=== PATIENT | male | born 1935 | race Caucasian/White ===

== ENCOUNTER 2018-05-02 16:16 | Outpatient (CLI) | payer MEDICARE, BC ==
[2018-05-02 17:21] LABS: #Basophils 0.1 thou/uL (0.0-0.2); #Eosinphils 0.3 thou/uL (0.0-0.7); #Lymphocytes 1.9 thou/uL (1.20-3.40); #Monocytes 0.7 thou/uL (0.11-0.59); #Neutrophils 4.4 thou/uL (1.40-6.50); %Basophils 1.2 % (0.0-1.0); %Eosinophils 3.7 % (0.0-10.0); %Lymphocytes 26.2 % (21.0-51.0); %Monocytes 9.3 % (0.0-10.0); %Neutrophils 59.7 % (42.0-75.0); Hemoglobin 15.6 g/dL (14.0-18.0); Mean Corpuscular HGB CONC 32.6 g/dL (32.0-36.0); Mean Corpuscular Hemoglobin 29.8 pg (27.0-31.0); Mean Corpuscular Volume 91.2 fL (78.0-98.0); Mean Platelet Volume 7.6 fL (7.4-10.4); Platelet Count 194 thou/uL (130-400); RBC Distribution Width 12.5 % (11.5-14.5); Red Blood Cell (RBC) Count 5.25 mill/uL (4.70-6.10); White Blood Cell (WBC) Count 7.4 thou/uL (4.8-10.8)
[2018-05-02 17:50] LABS: ALT (SGPT) 22 U/L (8-55); AST (SGOT) 23 U/L (5-34); Albumin 4.2 g/dL (3.4-4.8); Alkaline Phosphatase 80 U/L (40-150); Anion Gap 13 mmol/L (10-20); BUN (Urea Nitrogen) 15 mg/dL (8.4-25.7); Calc. Creatinine Clearance 0 mL/min (70-130); Calcium 9.8 mg/dL (7.8-10.44); Carbon Dioxide 27 mmol/L (23-31); Chloride 105 mmol/L (98-107); Estimated GFR-MDRD 75; Globulin 3.4 g/dL (2.4-3.5); Glucose 95 mg/dL (83-110); Protein, Total 7.6 g/dL (5.8-8.1); Sodium 141 mmol/L (136-145)
--- NOTE | 2018-05-02 18:33 | RAD ---
PA AND LATERAL CHEST: History: Pre op. Comparison: 02-19-18 FINDINGS: Heart size is enlarged. There are post op sternotomy changes. Lungs shows chronic change. IMPRESSION: Cardiomegaly with chronic lung change. POS: [facility]
== END 2018-05-02 16:17 | disposition home or self-care (01) ==
LOC: LABBT 16:16
PROVIDERS: ATTEND Internal Medicine Cardiovascular Disease
DX: Z01.818 Encounter for other preprocedural examination (principal); I25.10 Atherosclerotic heart disease of native coronary artery without angina pectoris; I35.0 Nonrheumatic aortic (valve) stenosis; I51.7 Cardiomegaly
CPT/HCPCS: 71046; 80053; 85025; 93005; 93010

== ENCOUNTER 2018-05-09 05:37 | Day surgery (SDC) | payer MEDICARE, BC ==
[2018-05-02 16:26] VITALS: BMI 24.6
[2018-05-09] MEDS ORDERED: Nitroglycerin 100MG/250ML BOT 0 ML ONE (06:43)
[2018-05-09] MEDS ORDERED: Heparin 10,000 UNITS/1 ML VIAL ONE (06:43)
[2018-05-09 06:52] LABS: Cardiac Risk 2.6 (Less than 4.5)
[2018-05-09] MEDS ORDERED: Fentanyl 100 MCG/2 ML VIAL ONE (07:18)
[2018-05-09] MEDS ORDERED: Midazolam HCl 2 mg/2 ml Vial ONE (07:18)
[2018-05-09] MEDS ORDERED: Protamine Sulfate 50 MG/5 ML VIAL ONE (08:21)
[2018-05-09] MEDS ORDERED: Iopamidol 370 76% 100 ML VIAL ONE (09:43)
== END 2018-05-09 15:40 | disposition home or self-care (01) ==
LOC: CCL 05:37
PROVIDERS: ATTEND Internal Medicine Cardiovascular Disease
PROC: 4A023N7 Measurement of Cardiac Sampling and Pressure, Left Heart, Percutaneous Approach (ICD-10-PCS; principal; 2018-05-09)
PROC: B2111ZZ Fluoroscopy of Multiple Coronary Arteries using Low Osmolar Contrast (ICD-10-PCS; 2018-05-09)
PROC: B2181ZZ Fluoroscopy of Left Internal Mammary Bypass Graft using Low Osmolar Contrast (ICD-10-PCS; 2018-05-09)
PROC: B2131ZZ Fluoroscopy of Multiple Coronary Artery Bypass Grafts using Low Osmolar Contrast (ICD-10-PCS; 2018-05-09)
DX: I35.0 Nonrheumatic aortic (valve) stenosis (principal); I25.10 Atherosclerotic heart disease of native coronary artery without angina pectoris; I34.0 Nonrheumatic mitral (valve) insufficiency; I25.2 Old myocardial infarction; E78.00 Pure hypercholesterolemia, unspecified; I11.0 Hypertensive heart disease with heart failure; I50.42 Chronic combined systolic (congestive) and diastolic (congestive) heart failure; Z87.891 Personal history of nicotine dependence; Z79.82 Long term (current) use of aspirin; Z79.899 Other long term (current) drug therapy; Z95.1 Presence of aortocoronary bypass graft
CPT/HCPCS: 36415; 80061; 93460; 93561; 93567; 99152; 99153; C1769; J1644; J2250; J2720; J3010; Q9967

== ENCOUNTER 2018-05-10 19:17 | Emergency (ER) | payer MEDICARE, BC ==
--- NOTE | 2018-05-10 20:58 | RAD ---
CHEST TWO VIEW 05/10/18 HISTORY: Fever. COMPARISON: Radiograph 05/02/18. FINDINGS: Heart size is mildly enlarged. No pneumothorax. No effusion. No acute osseous abnormality. Chronic scarring in the lung bases. Multiple midline sternotomy wires. IMPRESSION: Chronic scarring in the lung bases. No acute intrathoracic abnormality. POS: [facility]
== END 2018-05-10 22:40 | disposition home or self-care (01) ==
LOC: ERS 19:17
DX: R05 Cough (principal); M79.10 Myalgia, unspecified site; E78.5 Hyperlipidemia, unspecified; I10 Essential (primary) hypertension; I11.0 Hypertensive heart disease with heart failure; I50.9 Heart failure, unspecified; Z87.891 Personal history of nicotine dependence; Z79.899 Other long term (current) drug therapy; Z79.82 Long term (current) use of aspirin
CPT/HCPCS: 71046; 87804

== ENCOUNTER 2018-09-21 15:12 | Inpatient (IN) | payer MEDICARE, BC ==
[~2018-09-21 15:12] MED LIST: ISOVUE-370 76%-LOCM 1 ML ONE
[2018-09-21 15:49] LABS: Bicarbonate (HCO3v) 27.7 mmol/L (22.0-28.0); CO2 Tension (PvCO2) 46.4 mmHg (40.0-50.0); Calcium, Ionized 1.13 mmol/L (See Comments:); Chloride 101 mmol/L (98-107); Hemoglobin - Calc 13.8 g/dL (14.0-18.0); Potassium 3.3 mmol/L (3.5-5.1); Sodium 138 mmol/L (138-145); T. Carbon Dioxide 29.1 mmol/L (22.0-28.0); vO2 Saturation-calc 55.3 % (60.0-85.0)
[2018-09-21 15:56] LABS: Mean Corpuscular HGB CONC 33.3 g/dL (32.0-36.0); Mean Corpuscular Hemoglobin 30.4 pg (27.0-31.0); Mean Corpuscular Volume 91.3 fL (78.0-98.0); RBC Distribution Width 12.4 % (11.5-14.5); Red Blood Cell (RBC) Count 4.29 mill/uL (4.70-6.10); White Blood Cell (WBC) Count 15.3 thou/uL (4.8-10.8)
--- NOTE | 2018-09-21 16:05 | RAD ---
RADIOGRAPH CHEST 1 VIEW: DATE: 09/21/2018 TIME: 3:40 PM HISTORY: 82-year-old male with dyspnea COMPARISON: 05/10/2018 FINDINGS: Cardiomegaly appears slightly worse. Pulmonary venous engorgement diffusely. New finding of haziness of the bilateral lower lung zones, especially the right. No effacement of lateral costophrenic angles. No pneumothorax. Signs of previous CABG. IMPRESSION: 1) cardiomegaly and pulmonary venous congestion. Edema. 2. Mild haziness of the bilateral lower lung zones, nonspecific. Perhaps early pulmonary interstitial . 3) prior coronary artery bypass graft surgery is evidence for coronary atherosclerotic disease.
[2018-09-21 16:06] LABS: ALT (SGPT) 17 U/L (8-55); AST (SGOT) 18 U/L (5-34); Albumin 3.6 g/dL (3.4-4.8); Alkaline Phosphatase 76 U/L (40-150); Anion Gap 12 mmol/L (10-20); BUN (Urea Nitrogen) 16 mg/dL (8.4-25.7); Bilirubin, Total 1.7 mg/dL (0.2-1.2); CK (CPK) 67 U/L (30-200); Calc. Creatinine Clearance 0 mL/min (70-130); Calcium 8.6 mg/dL (7.8-10.44); Carbon Dioxide 26 mmol/L (23-31); Chloride 103 mmol/L (98-107); Estimated GFR-MDRD 79; Globulin 2.8 g/dL (2.4-3.5); Glucose 107 mg/dL (83-110); Potassium 3.4 mmol/L (3.5-5.1); Protein, Total 6.4 g/dL (5.8-8.1); Sodium 138 mmol/L (136-145)
[2018-09-21 16:14] LABS: Band 18 % (5-11); Lymphocytes 2 % (21-51); MDiff Complete? YES; Mean Platelet Volume 8.1 fL (7.4-10.4); Monocytes 9 % (0-10); Neutrophil 71 % (42-75); Platelet Count 110 thou/uL (130-400); Platelet Morphology Comment Appears Decreased
[2018-09-21 16:28] LABS: CKMB 1.2 ng/mL (0-6.6)
[2018-09-21] MEDS ORDERED: Aspirin Chewable 81 MG TAB ONE (16:40)
--- NOTE | 2018-09-21 18:47 | CT ---
Exam: CT angiogram of the chest HISTORY: Shortness of breath. Decreased O2 saturation. COMPARISON: None TECHNIQUE: CT angiogram of the chest is performed in the axial plane. Three-dimensional reformatted i mages are submitted for interpretation FINDINGS: Mediastinum: Enlarged AP window lymph node measuring 1.7 x 1.0 1.3 x 1.3 cm. Subcarinal lymphadenopat hy measuring 3.2 x 1.3 cm. HEART: Cardiomegaly. There are coronary artery calcifications. Calcification of the aortic valve. No significant pericardial fluid. Aorta: Atherosclerosis, without evidence of dissection or aneurysm. No significant luminal narrowing. Upper solid abdominal viscera: No abnormality enhancement. Trachea and central bronchi: Patent Pleural spaces: No effusion Lung parenchyma: There is bilateral lower lobe consolidation with scattered air bronchograms. Possibi lity of bilateral lower lobe pneumonia should be considered. Additional patchy groundglass opacities are noted predominantly in both lower lobes, middle lobe, and lingula. The possibility of s uperimposed congestive heart failure cannot be excluded. Pneumothorax: None Osseous structures: No lytic or blastic lesions Pulmonary arteries: Adequate contrast opacification pulmonary arterial system to the level of segment al arteries. No filling defect to suggest pulmonary embolism IMPRESSION: 1. No evidence of pulmonary artery embolism to the level of the segmental arteries 2. Multi lobar consolidation likely due to pneumonia. Aspiration or atelectasis cannot be completely excluded. 3. Mediastinal lymphadenopathy 4. Groundglass opacities may represent a component of congestive heart failure/edema.
[2018-09-21 19:37] LABS: Troponin I 0.013 ng/mL (< 0.028)
[2018-09-21] MEDS ORDERED: Senokot S 8.6-50 MG TAB PO PRN (20:52)
[2018-09-21] MEDS ORDERED: Acetaminophen 325 MG TAB PO PRN (20:52)
[2018-09-21] MEDS ORDERED: Furosemide 40 MG/4 ML VIAL SLOW IVP SCH (21:00)
[2018-09-21] MEDS ORDERED: Furosemide 40 MG/4 ML VIAL ONE (21:18)
[2018-09-21] MEDS ORDERED: Potassium Chloride 20 MEQ TAB PO SCH (21:30)
[2018-09-21 22:09] LABS: Troponin I 0.023 ng/mL (< 0.028)
[2018-09-21 23:33] VITALS: BMI 26.2
[2018-09-21] MEDS: cefTRIAXone\\ROCEPHIN 1 GM in Sodium Chloride 0.9% 100 ML IVPB SCH (23:53)
[2018-09-21] MEDS: Azithromycin 500 MG in Sodium Chloride 0.9% 250 ML 250 ML IVPB SCH (23:54)
[2018-09-21] MEDS ORDERED: Carvedilol 25 MG TAB PO SCH (23:59)
[2018-09-21] MEDS ORDERED: Atorvastatin Calcium 10 MG TAB PO SCH (23:59)
[2018-09-21] MEDS ORDERED: Lorazepam 1 MG TAB PO SCH (23:59)
--- NOTE | 2018-09-22 05:21 | HP ---
PRIMARY CARE PHYSICIAN: Dr. Cadena. CHIEF COMPLAINT: Shortness of breath. HISTORY OF PRESENT ILLNESS: Mr. Chinchilla is a very pleasant 82-year-old man who reported to the emergency room today for evaluation of shortness of breath. He describes symptoms as tightness, dyspnea on exertion, orthopneic. He reports that he has had a worsening cough over the last week, has had some chills this week as well. He reports that he typically does not use oxygen at home, but here he has had to be on 3 to 4 units to sustain a pulse ox of over 92%. PAST MEDICAL HISTORY: Pertinent for hyperlipidemia, hypertension, congestive heart failure, had a CABG x4. He did have a heart catheterization in April of this year, three-vessel coronary artery disease, 5/5 bypass grafts patent, mildly impaired ventricular function, mild aortic stenosis, moderate mitral regurgitation. The patient reports that Dr. Almaguer has increased his Coreg to 25 mg b.i.d. and also his losartan to 100 mg, and since that time, the patient reports that he gets winded easily. Reports that with the activities of daily living, he gets more short of breath. The patient's evaluation in the emergency room showed white blood cell count of 15.3, hemoglobin was 13, hematocrit is 39.0. Blood gas; pO2 of 29.8. pCO2 is 29.1. Hemoglobin calculated is 13.8. Chemistry; sodium is 138, potassium 3.4. BNP was shown to be 915. The patient underwent CTA chest, which showed no evidence of pulmonary embolism, but there is multilobar consolidation, likely due to pneumonia. There is mediastinal lymphadenopathy, ground-glass opacities which may represent a component of congestive heart failure and edema. The patient was subsequently admitted from the emergency room to the tele unit for further management. PAST MEDICAL HISTORY: As above, hypertension, CHF, SC, CABG x5. SURGICAL HISTORY: Heart catheterization in April 2018, had a CABG x5. Does not have any stents. PSYCHIATRIC HISTORY: None. SOCIAL HISTORY: The patient denies any alcohol or drug use. He is a former tobacco smoker, quit more than 10 years ago. He lives at home with his family. KNOWN ALLERGIES: None. CURRENT MEDICATIONS: 1. Vitamin C 1000 mg p.o. daily. 2. Aspirin 325 mg p.o. daily. 3. Lipitor 10 mg p.o. at bedtime. 4. Coreg 25 mg p.o. b.i.d. 5. Vitamin B12 mcg p.o. daily. 6. Ativan 1 mg p.o. at bedtime. 7. Losartan 100 mg p.o. daily. 8. Multivitamin one tablet p.o. daily. 9. [place]-3 one tablet p.o. daily. 10. Lasix 40 mg p.o. daily. 11. Prilosec 40 mg p.o. daily. REVIEW OF SYSTEMS: The patient reports shortness of breath. Reports orthopnea. Reports dyspnea on exertion. He denies chest pain or palpitations. Denies any GI issues. Denies any dysuria. Denies any fever. Does report chills. Does report cough. All other systems reviewed and are negative unless mentioned in the HPI. PHYSICAL EXAMINATION: VITAL SIGNS: Blood pressure 150/71, pulse is 72, respirations 26, temp 100.1, pO2 sats are 92% on 4 L. During my exam, the patient was brought down to 2 L and was saturating between 92 and 95. During the exam, he would drop occasionally down to 89, but it would usually pop back up. He was in no apparent respiratory distress. Talking in full sentences. CONSTITUTIONAL: The patient appears nontoxic. He is alert and oriented to person, place, and time. HEENT: Head is atraumatic and normocephalic. Eyes; eyelids are normal to inspection. Pupils are equally round and reactive to light. ENT; mucous membranes are moist. Mouth exam is normal. NECK: Normal range of motion. Trachea is midline. RESPIRATORY/CHEST: He has coarse breath sounds diminished at the bases. CARDIOVASCULAR: Regular heart rate and rhythm. Does have a heart murmur. ABDOMEN: Nontender. Bowel sounds are heard. BACK: Normal range of motion. No CVA tenderness. EXTREMITIES: Upper extremities; normal range of motion. Normal inspection. Sensation is intact. Radial pulses are equal bilaterally. Lower extremities; normal range of motion. Sensation is intact. Pedal pulses are equal bilaterally. Trace edema is noted bilaterally. SKIN: Warm, dry, and normal in color. PSYCH: Normal affect. LABORATORY DATA: EKG in the emergency room shows atrial fibrillation with controlled ventricular response, beats per minute 63, new T-wave inversions in V4 and V6. ASSESSMENT AND PLAN: 1. Hypoxia, dyspnea, new oxygen demand, bilateral pneumonia, congestive heart failure exacerbation. We started Lasix, gave 40 while the patient was still down in the emergency room. We will order 40 mg IV b.i.d. starting tomorrow. Antibiotics were given. We have started Rocephin and azithromycin. We will keep oxygen on continuously as needed. 2. Hypokalemia, 3.4. We will order some potassium replacement and check again in the morning. 3. Hypertension. We will restart home medications. We will trend. 4. Deep venous thrombosis and gastrointestinal prophylaxis have been started. 5. Case discussed with Dr. Mohr who agrees with plan. 6. Hospital course is dependent on clinical findings. Job ID: [id number]
[2018-09-22] MEDS: Furosemide 40 MG/4 ML VIAL SLOW IVP SCH ×2 (05:37→14:14)
[2018-09-22 06:16] LABS: ALT (SGPT) 16 U/L (8-55); AST (SGOT) 20 U/L (5-34); Albumin 3.5 g/dL (3.4-4.8); Alkaline Phosphatase 75 U/L (40-150); Anion Gap 13 mmol/L (10-20); BUN (Urea Nitrogen) 17 mg/dL (8.4-25.7); Bilirubin, Total 1.7 mg/dL (0.2-1.2); Calc. Creatinine Clearance 70 mL/min (70-130); Calcium 9.1 mg/dL (7.8-10.44); Carbon Dioxide 26 mmol/L (23-31); Chloride 104 mmol/L (98-107); Estimated GFR-MDRD 89; Globulin 3.4 g/dL (2.4-3.5); Glucose 119 mg/dL (83-110); Potassium 3.5 mmol/L (3.5-5.1); Protein, Total 6.9 g/dL (5.8-8.1); Sodium 139 mmol/L (136-145)
[2018-09-22] MEDS ORDERED: Carvedilol 25 MG TAB PO SCH (08:00)
[2018-09-22 08:13] LABS: Band 29 % (5-11); Hemoglobin 12.6 g/dL (14.0-18.0); Lymphocytes 6 % (21-51); MDiff Complete? YES; Mean Corpuscular HGB CONC 32.6 g/dL (32.0-36.0); Mean Corpuscular Hemoglobin 29.7 pg (27.0-31.0); Mean Platelet Volume 8.3 fL (7.4-10.4); Monocytes 5 % (0-10); Neutrophil 59 % (42-75); Platelet Count 118 thou/uL (130-400); RBC Distribution Width 12.5 % (11.5-14.5); Red Blood Cell (RBC) Count 4.24 mill/uL (4.70-6.10); White Blood Cell (WBC) Count 15.2 thou/uL (4.8-10.8)
[2018-09-22] MEDS: Famotidine 20 MG TAB PO SCH ×2 (08:43→20:21)
[2018-09-22] MEDS: Enoxaparin Sodium 40 MG/0.4 ML SYRINGE SC SCH (08:43)
[2018-09-22] MEDS: Aspirin 325 MG TAB PO SCH (08:43)
[2018-09-22] MEDS: Losartan 25 MG TAB PO SCH (09:08)
[2018-09-22] MEDS: Carvedilol 25 MG TAB PO SCH ×3 (09:17→17:31)
--- NOTE | 2018-09-22 13:48 | PDOC.PN ---
- Subjective Encounter Start Date: 09/22/18 Encounter Start Time: 10:30 Subjective: pt up in chair no complains - Objective Vital Signs & Weight: Vital Signs (12 hours) Temp Pulse Resp BP BP Pulse Ox 09/22/18 11:59 98.7 F 58 L 18 122/57 L 94 L 09/22/18 08:00 94 L 09/22/18 07:25 98.5 F 60 20 103/55 L 94 L 09/22/18 03:00 99.2 F 65 24 H 139/63 96 Weight Weight 157 lb 5 oz Result Diagrams: 09/22/18 05:08 09/22/18 05:08 Phys Exam - Physical Examination Neck: no nodes, no JVD, supple, full ROM Respiratory: no wheezing, no rales, no rhonchi, wheezing present, clear to auscultation bilateral Cardiovascular: RRR, no significant murmur, no rub, gallop, irregular Dx/Plan (1) Pneumonia Code(s): J18.9 - PNEUMONIA, UNSPECIFIED ORGANISM Status: Acute (2) Heart failure Code(s): I50.9 - HEART FAILURE, UNSPECIFIED Status: Acute (3) Coronary artery disease Code(s): I25.10 - ATHSCL HEART DISEASE OF [place] CORONARY ARTERY W/O ANG PCTRS Status: Chronic (4) Dyslipidemia Code(s): E78.5 - HYPERLIPIDEMIA, UNSPECIFIED Status: Chronic (5) Hypertension Code(s): I10 - ESSENTIAL (PRIMARY) HYPERTENSION Status: Chronic - Plan will continue current abx, will try to titrate his oxygen down * . Review of Systems - Review of Systems Respiratory: negative: Cough, Dry, Shortness of Breath, Hemoptysis, SOB with Excertion, Pleuritic Pain, Sputum, Wheezing Cardiovascular: negative: chest pain, palpitations, orthopnea, paroxysmal nocturnal dyspnea, edema, light headedness, other Gastrointestinal: negative: Nausea, Vomiting, Abdominal Pain, Diarrhea, Constipation, Melena, Hematochezia, Other - Medications/Allergies Allergies/Adverse Reactions: Allergies Allergy/AdvReac Type Severity Reaction Status Date / Time No Known Allergies Allergy Verified 05/02/18 16:25 Medications: Current Medications Acetaminophen (Tylenol) 650 mg PO Q4H PRN PRN Reason: Headache/Fever/Mild Pain (1-3) Aspirin (Aspirin) 325 mg PO QA-[facility] Last Admin: 09/22/18 08:43 Dose: 325 mg Atorvastatin Calcium (Lipitor) 10 mg PO HS [facility] Carvedilol (Coreg) 12.5 mg PO BID-[facility] Enoxaparin Sodium (Lovenox) 40 mg SC 0900 [facility] Last Admin: 09/22/18 08:43 Dose: 40 mg Famotidine (Pepcid) 20 mg PO BID [facility] Last Admin: 09/22/18 08:43 Dose: 20 mg Furosemide (Lasix) 40 mg SLOW IVP 0600,1400 [facility] Last Admin: 09/22/18 05:37 Dose: 40 mg Azithromycin 500 mg/ Sodium (Chloride) 250 mls @ 250 mls/hr IVPB Q24HR [facility] Last Admin: 09/21/18 23:54 Dose: Not Given Ceftriaxone Sodium 1 gm/ (Sodium Chloride) 100 mls @ 200 mls/hr IVPB Q24HR [facility] Last Admin: 09/21/18 23:53 Dose: Not Given Lorazepam (Ativan) 1 mg PO HS [facility] Losartan Potassium (Cozaar) 100 mg PO DAILY [facility] Last Admin: 09/22/18 09:08 Dose: Not Given Pantoprazole Sodium (Protonix) 40 mg PO DAILY [facility] Last Admin: 09/22/18 08:43 Dose: 40 mg Senna/Docusate Sodium (Senokot S) 2 tab PO BID PRN PRN Reason: Constipation Sodium Chloride (Flush - Normal Saline) 10 ml IVF PRN PRN PRN Reason: Saline Flush
[2018-09-22] MEDS: cefTRIAXone\\ROCEPHIN 1 GM in Sodium Chloride 0.9% 100 ML IVPB SCH (20:21)
[2018-09-22] MEDS: Atorvastatin Calcium 10 MG TAB PO SCH (20:21)
[2018-09-22] MEDS: Lorazepam 1 MG TAB PO SCH (20:22)
[2018-09-22] MEDS: Azithromycin 500 MG in Sodium Chloride 0.9% 250 ML 250 ML IVPB SCH (22:10)
[2018-09-23 04:52] LABS: #Eosinphils 0.1 thou/uL (0.0-0.7); #Monocytes 0.8 thou/uL (0.11-0.59); #Neutrophils 9.8 thou/uL (1.40-6.50); %Basophils 0.3 % (0.0-1.0); %Eosinophils 1.1 % (0.0-10.0); %Lymphocytes 8.8 % (21.0-51.0); %Neutrophils 82.8 % (42.0-75.0); Hemoglobin 12.8 g/dL (14.0-18.0); Mean Corpuscular HGB CONC 32.7 g/dL (32.0-36.0); Mean Corpuscular Volume 91.9 fL (78.0-98.0); Mean Platelet Volume 8.6 fL (7.4-10.4); Platelet Count 130 thou/uL (130-400); RBC Distribution Width 12.6 % (11.5-14.5); Red Blood Cell (RBC) Count 4.28 mill/uL (4.70-6.10); White Blood Cell (WBC) Count 11.9 thou/uL (4.8-10.8)
[2018-09-23 05:17] LABS: ALT (SGPT) 17 U/L (8-55); AST (SGOT) 19 U/L (5-34); Albumin 3.5 g/dL (3.4-4.8); Alkaline Phosphatase 76 U/L (40-150); Anion Gap 12 mmol/L (10-20); BUN (Urea Nitrogen) 23 mg/dL (8.4-25.7); Bilirubin, Total 1.2 mg/dL (0.2-1.2); Calc. Creatinine Clearance 67 mL/min (70-130); Calcium 9.4 mg/dL (7.8-10.44); Carbon Dioxide 28 mmol/L (23-31); Chloride 102 mmol/L (98-107); Estimated GFR-MDRD 84; Globulin 3.5 g/dL (2.4-3.5); Glucose 96 mg/dL (83-110); Potassium 3.4 mmol/L (3.5-5.1); Sodium 139 mmol/L (136-145)
[2018-09-23] MEDS: Furosemide 40 MG/4 ML VIAL SLOW IVP SCH (05:34)
[2018-09-23] MEDS: Carvedilol 25 MG TAB PO SCH ×2 (08:37→17:06)
[2018-09-23] MEDS: Losartan 25 MG TAB PO SCH (08:37)
[2018-09-23] MEDS: Famotidine 20 MG TAB PO SCH ×2 (08:38→19:48)
[2018-09-23] MEDS: Aspirin 325 MG TAB PO SCH (08:38)
[2018-09-23] MEDS: Enoxaparin Sodium 40 MG/0.4 ML SYRINGE SC SCH (08:38)
[2018-09-23] MEDS ORDERED: Potassium Chloride 20 MEQ in Premix Bag 1 BAG IVPB SCH ×2 (10:30→10:45)
[2018-09-23] MEDS ORDERED: Potassium Chloride 20 MEQ TAB PO SCH (10:30)
--- NOTE | 2018-09-23 12:33 | PQF ---
CLINICAL DOCUMENTATION IMPROVEMENT CLARIFICATION FORM: ICD-10 Updated PLEASE DO AN ADDENDUM TO THE PROGRESS NOTE WITH ANY DOCUMENTATION UPDATES OR ADDITIONS AND CARRY THROUGH TO DC SUMMARY. THANK YOU. DATE: 09/23/18 ATTN: DR. WHITNEY Please exercise your independent, professional judgment in responding to the clarification form. Clinical indicators are provided on the bottom of this form for your review Please check appropriate box(s): HEART FAILURE: TYPE: [ ] Systolic / HFrEF [ x] Diastolic / HFpEF [ ] Combined Systolic / Diastolic [ ] Other diagnosis [ ] Unable to determine In addition, please specify: Present on Admission (POA): [ x ] Yes [ ] No [ ] Unable to determine For continuity of documentation, please document condition throughout progress notes and discharge summary. Thank You. CLINICAL INDICATORS - SIGNS / SYMPTOMS / LABS H&P: "CONGESTIVE HEART FAILURE EXACERBATION" ECHO REPORT: "EJECTION FRACTION IS VISUALLY ESTIMATED AT 40-45%" BNP: 915.1 RISKS: H/O HYPERTENSION H/O CABG TREATMENT: ECHOCARDIOGRAM CARDIAC MONITORING IV LASIX (ER-09/23) PO LASIX (START 09/24) COREG (09/22-PRESENT) (This form is maintained as a part of the permanent medical record) 2014 [employer]. All Rights Reserved JONATHAN [email or web address] Office: [phone] MAURICE
--- NOTE | 2018-09-23 13:47 | PDOC.PN ---
- Subjective Encounter Start Date: 09/23/18 Encounter Start Time: 10:15 Subjective: pt up in chair no complains - Objective Vital Signs & Weight: Vital Signs (12 hours) Temp Pulse Resp BP Pulse Ox 09/23/18 11:30 89 L 09/23/18 10:40 97.1 F L 55 L 18 140/65 88 L 09/23/18 08:30 98.0 F 64 18 149/67 H 94 L 09/23/18 08:00 94 L 09/23/18 05:58 98 09/23/18 03:57 97.9 F 62 22 H 148/74 H 94 L Weight Weight 151 lb 6.4 oz I&O: 09/22/18 09/23/18 09/24/18 06:59 06:59 06:59 Intake Total 1130 Output Total 1775 Balance -645 Result Diagrams: 09/23/18 04:05 09/23/18 04:05 Phys Exam - Physical Examination Neck: no nodes, no JVD, supple, full ROM Respiratory: no wheezing, no rales, no rhonchi, wheezing present, clear to auscultation bilateral Cardiovascular: RRR, no significant murmur, no rub, gallop, irregular Gastrointestinal: soft, non-tender, no distention, positive bowel sounds Musculoskeletal: no edema, pulses present, edema present Dx/Plan (1) Pneumonia Code(s): J18.9 - PNEUMONIA, UNSPECIFIED ORGANISM Status: Acute (2) Heart failure Code(s): I50.9 - HEART FAILURE, UNSPECIFIED Status: Acute (3) Coronary artery disease Code(s): I25.10 - ATHSCL HEART DISEASE OF [place] CORONARY ARTERY W/O ANG PCTRS Status: Chronic (4) Dyslipidemia Code(s): E78.5 - HYPERLIPIDEMIA, UNSPECIFIED Status: Chronic (5) Hypertension Code(s): I10 - ESSENTIAL (PRIMARY) HYPERTENSION Status: Chronic - Plan will continue current abx -: echo indicated ef of 40-45 better than before -: will change lasix to oral -: will replace potassium * . Review of Systems - Review of Systems Respiratory: Shortness of Breath. negative: Cough, Dry, Hemoptysis, SOB with Excertion, Pleuritic Pain, Sputum, Wheezing Cardiovascular: negative: chest pain, palpitations, orthopnea, paroxysmal nocturnal dyspnea, edema, light headedness, other Gastrointestinal: negative: Nausea, Vomiting, Abdominal Pain, Diarrhea, Constipation, Melena, Hematochezia, Other - Medications/Allergies Allergies/Adverse Reactions: Allergies Allergy/AdvReac Type Severity Reaction Status Date / Time No Known Allergies Allergy Verified 05/02/18 16:25 Medications: Current Medications Acetaminophen (Tylenol) 650 mg PO Q4H PRN PRN Reason: Headache/Fever/Mild Pain (1-3) Aspirin (Aspirin) 325 mg PO QAM-[facility] Last Admin: 09/23/18 08:38 Dose: 325 mg Atorvastatin Calcium (Lipitor) 10 mg PO [facility] Last Admin: 09/22/18 20:21 Dose: 10 mg Carvedilol (Coreg) 12.5 mg PO BID-[facility] Last Admin: 09/23/18 08:37 Dose: 12.5 mg Enoxaparin Sodium (Lovenox) 40 mg SC 0900 [facility] Last Admin: 09/23/18 08:38 Dose: 40 mg Famotidine (Pepcid) 20 mg PO BID [facility] Last Admin: 09/23/18 08:38 Dose: 20 mg Fluticasone Propionate (Flonase Nasal [place]) 1 gm NASAL DAILY [facility] Furosemide (Lasix) 40 mg PO DAILY-[facility] Azithromycin 500 mg/ Sodium (Chloride) 250 mls @ 250 mls/hr IVPB Q24HR [facility] Last Admin: 09/22/18 22:10 Dose: 250 mls Ceftriaxone Sodium 1 gm/ (Sodium Chloride) 100 mls @ 200 mls/hr IVPB Q24HR [facility] Last Admin: 09/22/18 20:21 Dose: 100 mls Lorazepam (Ativan) 1 mg PO [facility] Last Admin: 09/22/18 20:22 Dose: 1 mg Losartan Potassium (Cozaar) 100 mg PO DAILY [facility] Last Admin: 09/23/18 08:37 Dose: 100 mg Pantoprazole Sodium (Protonix) 40 mg PO DAILY [facility] Last Admin: 09/23/18 08:38 Dose: 40 mg Saccharomyces Boulardii (Florastor) 250 mg PO DAILY [facility] Senna/Docusate Sodium (Senokot S) 2 tab PO BID PRN PRN Reason: Constipation Sodium Chloride (Flush - Normal Saline) 10 ml IVF PRN PRN PRN Reason: Saline Flush
[2018-09-23] MEDS: cefTRIAXone\\ROCEPHIN 1 GM in Sodium Chloride 0.9% 100 ML IVPB SCH (19:48)
[2018-09-23] MEDS: Atorvastatin Calcium 10 MG TAB PO SCH (19:49)
[2018-09-23] MEDS: Lorazepam 1 MG TAB PO SCH (21:30)
[2018-09-23] MEDS: Azithromycin 500 MG in Sodium Chloride 0.9% 250 ML 250 ML IVPB SCH (21:30)
[2018-09-24] MEDS: Aspirin 325 MG TAB PO SCH (08:57)
[2018-09-24] MEDS: Losartan 25 MG TAB PO SCH (08:57)
[2018-09-24] MEDS: Furosemide 40 MG TAB PO SCH (08:58)
[2018-09-24] MEDS: Saccharomyces boulardii 250 MG CAP PO SCH (08:58)
[2018-09-24] MEDS: Famotidine 20 MG TAB PO SCH ×2 (08:59→21:04)
[2018-09-24] MEDS: Carvedilol 6.25 MG TAB PO SCH ×2 (08:59→17:41)
[2018-09-24] MEDS: Enoxaparin Sodium 40 MG/0.4 ML SYRINGE SC SCH (09:00)
[2018-09-24] MEDS: Fluticasone Propionate Nasal Spray 16 gm Bottle NASAL SCH (11:31)
[2018-09-24] MEDS ORDERED: Furosemide 40 MG/4 ML VIAL SLOW IVP SCH (14:00)
--- NOTE | 2018-09-24 16:16 | PDOC.PN ---
- Subjective Encounter Start Date: 09/24/18 Encounter Start Time: 09:00 Subjective: pt up in bed no complains - Objective Vital Signs & Weight: Vital Signs (12 hours) Temp Pulse Pulse Pulse Resp BP BP 09/24/18 14:33 63 60 175/78 H 155/70 H 09/24/18 11:03 98.3 F 70 24 H 09/24/18 07:45 98.2 F 62 19 BP Pulse Ox Pulse Ox Pulse Ox 09/24/18 14:33 94 L 95 09/24/18 11:03 155/70 H 95 09/24/18 07:45 174/78 H 96 Weight Weight 153 lb I&O: 09/23/18 09/24/18 09/25/18 06:59 06:59 06:59 Intake Total 1130 1000 Output Total 1770 2997 Balance -287 -729 Result Diagrams: 09/23/18 04:05 09/23/18 04:05 Phys Exam - Physical Examination Neck: no nodes, no JVD, supple, full ROM Respiratory: no wheezing, no rales, no rhonchi, clear to auscultation bilateral Cardiovascular: RRR, no significant murmur, no rub, gallop, irregular Gastrointestinal: soft, non-tender, no distention, positive bowel sounds Dx/Plan (1) Pneumonia Code(s): J18.9 - PNEUMONIA, UNSPECIFIED ORGANISM Status: Acute (2) Heart failure Code(s): I50.9 - HEART FAILURE, UNSPECIFIED Status: Acute (3) Coronary artery disease Code(s): I25.10 - ATHSCL HEART DISEASE OF [place] CORONARY ARTERY W/O ANG PCTRS Status: Chronic (4) Dyslipidemia Code(s): E78.5 - HYPERLIPIDEMIA, UNSPECIFIED Status: Chronic (5) Hypertension Code(s): I10 - ESSENTIAL (PRIMARY) HYPERTENSION Status: Chronic - Plan will continue abx for now -: echo was unchanged -: will give one dose of lasix for now -: possible discharge in am * . Review of Systems - Review of Systems Respiratory: negative: Cough, Dry, Shortness of Breath, Hemoptysis, SOB with Excertion, Pleuritic Pain, Sputum, Wheezing Cardiovascular: negative: chest pain, palpitations, orthopnea, paroxysmal nocturnal dyspnea, edema, light headedness, other - Medications/Allergies Allergies/Adverse Reactions: Allergies Allergy/AdvReac Type Severity Reaction Status Date / Time No Known Allergies Allergy Verified 05/02/18 16:25 Medications: Current Medications Acetaminophen (Tylenol) 650 mg PO Q4H PRN PRN Reason: Headache/Fever/Mild Pain (1-3) Aspirin (Aspirin) 325 mg PO QAM-[facility] Last Admin: 09/24/18 08:57 Dose: 325 mg Atorvastatin Calcium (Lipitor) 10 mg PO [facility] Last Admin: 09/23/18 19:49 Dose: 10 mg Carvedilol (Coreg) 12.5 mg PO BID-[facility] Last Admin: 09/24/18 08:59 Dose: 12.5 mg Enoxaparin Sodium (Lovenox) 40 mg SC 09 [facility] Last Admin: 09/24/18 09:00 Dose: 40 mg Famotidine (Pepcid) 20 mg PO BID [facility] Last Admin: 09/24/18 08:59 Dose: 20 mg Fluticasone Propionate (Flonase Nasal [place]) 1 gm NASAL DAILY [facility] Last Admin: 09/24/18 11:31 Dose: 1 spr Furosemide (Lasix) 40 mg PO DAILY-[facility] Last Admin: 09/24/18 08:58 Dose: 40 mg Azithromycin 500 mg/ Sodium (Chloride) 250 mls @ 250 mls/hr IVPB Q24HR [facility] Last Admin: 09/23/18 21:30 Dose: 250 mls Ceftriaxone Sodium 1 gm/ (Sodium Chloride) 100 mls @ 200 mls/hr IVPB Q24HR [facility] Last Admin: 09/23/18 19:48 Dose: 100 mls Lorazepam (Ativan) 1 mg PO [facility] Last Admin: 09/23/18 21:30 Dose: 1 mg Losartan Potassium (Cozaar) 100 mg PO DAILY [facility] Last Admin: 09/24/18 08:57 Dose: 100 mg Pantoprazole Sodium (Protonix) 40 mg PO DAILY [facility] Last Admin: 09/24/18 08:59 Dose: 40 mg Saccharomyces Boulardii (Florastor) 250 mg PO DAILY [facility] Last Admin: 09/24/18 08:58 Dose: 250 mg Senna/Docusate Sodium (Senokot S) 2 tab PO BID PRN PRN Reason: Constipation Sodium Chloride (Flush - Normal Saline) 10 ml IVF PRN PRN PRN Reason: Saline Flush
[2018-09-24] MEDS: Atorvastatin Calcium 10 MG TAB PO SCH (21:03)
[2018-09-24] MEDS: Lorazepam 1 MG TAB PO SCH (21:04)
[2018-09-24] MEDS: cefTRIAXone\\ROCEPHIN 1 GM in Sodium Chloride 0.9% 100 ML IVPB SCH (21:10)
[2018-09-24] MEDS: Azithromycin 500 MG in Sodium Chloride 0.9% 250 ML 250 ML IVPB SCH (22:11)
[2018-09-25] MEDS ORDERED: Furosemide 40 MG/4 ML VIAL SLOW IVP SCH (08:15)
[2018-09-25] MEDS: Enoxaparin Sodium 40 MG/0.4 ML SYRINGE SC SCH (09:03)
[2018-09-25] MEDS: Saccharomyces boulardii 250 MG CAP PO SCH (09:03)
[2018-09-25] MEDS: Losartan 25 MG TAB PO SCH (09:03)
[2018-09-25] MEDS: Aspirin 325 MG TAB PO SCH (09:04)
[2018-09-25] MEDS: Famotidine 20 MG TAB PO SCH ×2 (09:04→20:37)
[2018-09-25] MEDS: Carvedilol 6.25 MG TAB PO SCH ×2 (09:04→16:15)
[2018-09-25] MEDS: Fluticasone Propionate Nasal Spray 16 gm Bottle NASAL SCH (09:05)
[2018-09-25 09:39] LABS: Anion Gap 11 mmol/L (10-20); BUN (Urea Nitrogen) 19 mg/dL (8.4-25.7); Calc. Creatinine Clearance 76 mL/min (70-130); Calcium 9.3 mg/dL (7.8-10.44); Carbon Dioxide 31 mmol/L (23-31); Chloride 102 mmol/L (98-107); Estimated GFR-MDRD Greater than 90; Glucose 107 mg/dL (83-110); Potassium 3.4 mmol/L (3.5-5.1); Sodium 141 mmol/L (136-145)
[2018-09-25] MEDS: Furosemide 40 MG TAB PO SCH (09:40)
[2018-09-25] MEDS ORDERED: predniSONE 20 MG TAB PO SCH (09:45)
[2018-09-25] MEDS: cefTRIAXone\\ROCEPHIN 1 GM in Sodium Chloride 0.9% 100 ML IVPB SCH (20:36)
[2018-09-25] MEDS: Atorvastatin Calcium 10 MG TAB PO SCH (20:37)
[2018-09-25] MEDS: Lorazepam 1 MG TAB PO SCH (20:37)
[2018-09-25] MEDS: Azithromycin 500 MG in Sodium Chloride 0.9% 250 ML 250 ML IVPB SCH (21:11)
[2018-09-26 08:20] VITALS: TEMP 97.8
[2018-09-26] MEDS ORDERED: Furosemide 40 MG TAB PO SCH (10:00)
[2018-09-26] MEDS ORDERED: Potassium Chloride 20 MEQ TAB PO SCH (10:00)
[2018-09-26] MEDS: Aspirin 325 MG TAB PO SCH (10:12)
[2018-09-26] MEDS: Saccharomyces boulardii 250 MG CAP PO SCH (10:13)
[2018-09-26] MEDS: Losartan 25 MG TAB PO SCH (10:13)
[2018-09-26] MEDS: Famotidine 20 MG TAB PO SCH (10:14)
[2018-09-26] MEDS: Enoxaparin Sodium 40 MG/0.4 ML SYRINGE SC SCH (10:14)
[2018-09-26] MEDS: Carvedilol 6.25 MG TAB PO SCH (10:14)
[2018-09-26] MEDS: Fluticasone Propionate Nasal Spray 16 gm Bottle NASAL SCH (10:15)
[2018-09-26 10:16] VITALS: BP 160/74
--- NOTE | 2018-09-26 23:38 | DIS ---
DATE OF ADMISSION: 09/21/2018 DATE OF DISCHARGE: 09/26/2018 DISCHARGE DIAGNOSES: As of the followin. Acute hypoxic respiratory failure. 2. Pneumonia. 3. Diastolic heart failure. 4. Coronary artery disease. 5. Hyperlipidemia. 6. Hypertension. HOSPITAL COURSE: The patient is an 82-year-old male, who initially presented to the hospital on the with complaints of shortness of breath. At this time, the patient did have a CTA which indicated bilateral lower lobe pneumonia. He was also found to be hypoxic and dyspneic. He did have an elevated BNP in which time he was given some IV Lasix. He continued to improve during the hospital stay. He required oxygen. We did try to wean him off oxygen. However, this was not possible. I did repeat the echocardiogram on this patient and that echo indicated an EF of 40% to 45%, which was improved from his previous one, which I believe was couple years ago. Also, he does have [id number] tricuspid regurgitation. He initially did have a little bit of when he came in was a flutter in atrial fibrillation. However, after that, he was in normal sinus with some PACs and PVCs. He does have an appointment with a senior publications specialist tomorrow and also with his primary care on Sunday. I will discharge the patient home with, 1. Levaquin 750 one p.o. daily. 2. Carvedilol, I decreased the dose from 25 to 12.5 b.i.d. 3. I will add Florastor 250 daily. 4. Omeprazole 40 mg daily. 5. Atorvastatin 10 mg at bedtime. 6. Also, he will continue his losartan 100 mg daily. 7. Potassium 20 mEq daily. 8. Vitamin C and vitamin B12. 9. Aspirin 325 mg daily. PHYSICAL EXAMINATION: VITAL SIGNS: Temperature of 97.8, 65, 20, 92, 165/79. GENERAL: He is awake, alert, and oriented x3. Does not appear in distress. CV: S1 and S2 present. No murmurs, rubs, or gallops. ABDOMEN: Soft, nontender. Bowel sounds are present x2. EXTREMITIES: No edema. Pedal pulses are present x2. Again, he will be discharged home. He will follow up with the primary and also with Cardiology. The patient did not sustain atrial fibrillation or atrial flutter. I believe this is secondary to his pneumonia. Let the senior publications specialist decide if he needs to be anticoagulated. Job ID: [id number]
[2018-09-27] MEDS ORDERED: Furosemide 40 MG TAB PO SCH (07:30)
--- NOTE | 2018-09-28 11:05 | EKG ---
Test Reason : Blood Pressure : / mmHG Vent. Rate : 063 BPM Atrial Rate : 468 BPM P-R Int : 000 ms QRS Dur : 126 ms QT Int : 450 ms P-R-T Axes : 000 -09 155 degrees QTc Int : 460 ms Atrial fibrillation Left ventricular hypertrophy with QRS widening Inferior infarct , age undetermined Abnormal ECG New T wave inversions I, aVL T wave inversions V4-V6 Changes from 05/02/2018 Confirmed by ANDREW ROMERO ([id number]), book editor SLOANE BLACKWELL ([id number]) on 09/28/2018 11:05:39 AM Referred By: Confirmed By:ANDREW ROMERO
== END 2018-09-26 13:10 | disposition home or self-care (01) | DRG 291 ==
LOC: ERS 15:12 → 2NO 20:52
PROVIDERS: ADMIT Internal Medicine; ATTEND Internal Medicine
DX: I11.0 Hypertensive heart disease with heart failure (principal); J18.1 Lobar pneumonia, unspecified organism; J96.01 Acute respiratory failure with hypoxia; E78.00 Pure hypercholesterolemia, unspecified; I50.33 Acute on chronic diastolic (congestive) heart failure; I08.3 Combined rheumatic disorders of mitral, aortic and tricuspid valves; E87.6 Hypokalemia; I48.91 Unspecified atrial fibrillation; I49.1 Atrial premature depolarization; I49.3 Ventricular premature depolarization; I25.10 Atherosclerotic heart disease of native coronary artery without angina pectoris; Z87.891 Personal history of nicotine dependence; Z79.899 Other long term (current) drug therapy; Z79.82 Long term (current) use of aspirin; Z95.1 Presence of aortocoronary bypass graft; I25.2 Old myocardial infarction
CPT/HCPCS: 36415; 71045; 71275; 80048; 80053; 82330; 82550; 82553; 82803; 83735; 83880; 84484; 85025; 87040; 87070; 87077; 87186; 87205; 93005; 93306; 93798; 94760; 96365; 96375; J0456; J0696; J1650; J1940; J3480; J3490; J7050; J7512; Q9966

== ENCOUNTER 2019-04-16 08:39 | Outpatient (CLI) | payer MEDICARE, BC ==
--- NOTE | 2019-04-16 08:55 | RAD ---
EXAM: Chest 2 views: HISTORY: Dyspnea COMPARISON: 09/21/2018 FINDINGS: There is a normal-sized cardiomediastinal silhouette. The patient is status post CABG. Increased int erstitial markings are present. There is no evidence of consolidation, mass, or pleural effusion. The bones are unremarkable. IMPRESSION: No evidence of acute cardiopulmonary disease
== END 2019-04-16 08:40 | disposition home or self-care (01) ==
LOC: RAD 08:39
PROVIDERS: ATTEND Internal Medicine Critical Care Medicine
DX: R06.00 Dyspnea, unspecified (principal)
CPT/HCPCS: 71046

== ENCOUNTER 2019-04-30 14:23 | Outpatient (CLI) | payer MEDICARE, BC ==
--- NOTE | 2019-04-30 15:03 | CT ---
EXAM: CT of the chest with contrast HISTORY: Coughing up blood and mucus COMPARISON: None TECHNIQUE: Multiple contiguous axial images were obtained in a CT the chest with contrast. Coronal an d sagittal reformats were performed. FINDINGS: HEART: Normal in size without focal cardiac abnormality. The patient is status post CABG. MEDIASTINUM: No hilar or mediastinal lymphadenopathy. LUNGS: Bilateral lower lobe airspace opacities are seen consistent with multifocal pneumonia. No obvi ous suspicious pulmonary nodules are seen, but evaluation is limited given the infiltrates in the lower lobes. PLEURAL SPACE: No pneumothorax or pleural effusion. CHEST WALL SOFT TISSUES: Unremarkable OSSEOUS STRUCTURES: Degenerative changes in the spine. VISUALIZED SUBDIAPHRAGMATIC STRUCTURES: Unremarkable IMPRESSION: Bilateral lower lobe pneumonia.
[2019-04-30] MEDS ORDERED: Iopamidol-370 76% 500 ML 1 ML ONE (16:09)
== END 2019-04-30 14:24 | disposition home or self-care (01) ==
LOC: BICCT 14:23
PROVIDERS: ATTEND Internal Medicine Critical Care Medicine
DX: R04.2 Hemoptysis (principal); R06.00 Dyspnea, unspecified; J18.9 Pneumonia, unspecified organism
CPT/HCPCS: 71260; 82565

== ENCOUNTER 2019-05-12 12:59 | Outpatient (CLI) | payer MEDICARE, BC ==
--- NOTE | 2019-05-12 13:21 | RAD ---
RADIOGRAPH CHEST 2 VIEW: DATE: 05/12/2019 TIME: 1:14 PM HISTORY: 83-year-old male with dyspnea COMPARISON: 04/16/2019 FINDINGS: Bilateral lower lung zone, including lower lobe, alveolar and interstitial infiltrates. The right nara e is worse than previously. The mid and upper lung zones are clear. Signs of previous CABG. Cardiac size near upper limits of normal. No moderate sized or large pleural effusions. Difficult to evaluate for small pleural effusions because of the basilar consolidations. No pneumothorax. IMPRESSION: Bilateral lower lobe alveolar and interstitial infiltrates. The right side is worse than before.
== END 2019-05-12 13:00 | disposition home or self-care (01) ==
LOC: RAD 12:59
PROVIDERS: ATTEND Internal Medicine Critical Care Medicine
DX: R06.00 Dyspnea, unspecified (principal); R91.8 Other nonspecific abnormal finding of lung field
CPT/HCPCS: 71046

== ENCOUNTER 2019-05-13 16:33 | Inpatient (IN) | payer MEDICARE, BC ==
[2019-05-13] MEDS: Furosemide 100 MG/10 ML VIAL SLOW IVP SCH (19:45)
[2019-05-13] MEDS: Carvedilol 25 MG TAB PO SCH (21:04)
[2019-05-13] MEDS: Atorvastatin Calcium 10 MG TAB PO SCH (21:04)
[2019-05-13] MEDS: Lorazepam 1 MG TAB PO PRN (21:14)
--- NOTE | 2019-05-13 22:17 | HP ---
05/13/2019 HISTORY OF PRESENT ILLNESS: Mr. Chinchilla is a pleasant 83-year-old male. He was hospitalized last summer with pneumonia. He was referred here to me in March. His chest radiograph showed bilateral lower lobe alveolar infiltrates. Followup CT did not show resolution of the infiltrates comparing CTs. He subsequently was seen by me and had his diuretics increased. A 1-week followup chest x-ray showed no significant improvement. I recommended admission for an attempted diuresis, although my feeling was that it is less likely that this is chronic decompensated heart failure. At an age of 83, I would really like to avoid doing lung biopsy if at all possible. PAST MEDICAL HISTORY: Remarkable for; 1. Diastolic heart failure. 2. History of coronary artery disease. 3. History of lipid disorder. 4. History of hypertension. 5. History of lipid disorder. 6. History of coronary artery bypass grafting. 7. History of cardiac catheterization done in April a year ago, which showed 5/5 patent grafts, mild aortic stenosis, moderate mitral regurgitation. SOCIAL HISTORY: He is a nonsmoker. He smoked in the distant past. He is a nondrinker. He has a very supportive . ALLERGIES: HE HAS NO REPORTED DRUG ALLERGIES. REVIEW OF SYSTEMS: Ten points otherwise negative. He denies dyspnea on exertion, but says he has an oximeter at home and he run sats in the high 80s at home. His gas exchange has not improved with the diuretics, although he did not lose any weight. PHYSICAL EXAMINATION: VITAL SIGNS: He is afebrile. Blood pressure 160/74, heart rate 65, respiratory rate 20, oximetry is actually recorded as 92% on room air when he was in the hospital last summer, he was 85% to 87% yesterday in the office. HEENT: Pupils are equal. Sclerae are anicteric. NECK: Supple. No lymphadenopathy. LUNGS: Remarkable for crackles at both lung bases. HEART: Regular rhythm. S1 and S2 are normal. ABDOMEN: Soft and nontender. EXTREMITIES: Without clubbing, cyanosis, or edema. NEUROLOGIC: Nonfocal. IMPRESSION: Bilateral alveolar infiltrates of both lower lobes. The etiology unclear. We will start with diuresis to see if we have improvement of his radiograph if we can document weight loss and diuresis. This is a 50 minute consult, with greater than 50% of time spent on unit coordinating care Job ID: [id number] [facility]
[2019-05-14] MEDS: Furosemide 100 MG/10 ML VIAL SLOW IVP SCH ×3 (00:45→14:25)
[2019-05-14 04:41] LABS: #Eosinphils 0.2 thou/uL (0.0-0.7); #Lymphocytes 1.3 thou/uL (1.20-3.40); #Monocytes 0.7 thou/uL (0.11-0.59); #Neutrophils 6.1 thou/uL (1.40-6.50); %Basophils 0.4 % (0.0-1.0); %Eosinophils 2.4 % (0.0-10.0); %Lymphocytes 15.2 % (21.0-51.0); Hemoglobin 14.6 g/dL (14.0-18.0); Mean Corpuscular HGB CONC 33.2 g/dL (32.0-36.0); Mean Corpuscular Hemoglobin 29.9 pg (27.0-31.0); Mean Platelet Volume 7.6 fL (7.4-10.4); Platelet Count 188 thou/uL (130-400); RBC Distribution Width 12.5 % (11.5-14.5); Red Blood Cell (RBC) Count 4.87 mill/uL (4.70-6.10); White Blood Cell (WBC) Count 8.2 thou/uL (4.8-10.8)
[2019-05-14 05:00] LABS: Anion Gap 14 mmol/L (10-20); BUN (Urea Nitrogen) 37 mg/dL (8.4-25.7); Calc. Creatinine Clearance 44 mL/min (70-130); Calcium 9.2 mg/dL (7.8-10.44); Carbon Dioxide 29 mmol/L (23-31); Chloride 102 mmol/L (98-107); Estimated GFR-MDRD 56; Glucose 117 mg/dL (83-110); Potassium 3.8 mmol/L (3.5-5.1); Sodium 141 mmol/L (136-145)
--- NOTE | 2019-05-14 08:06 | RAD ---
XR Chest 1 View Portable History: Congestive heart failure Comparison: Radiograph 2 days prior Findings: Heart size is enlarged. Small effusions. Mild edema. No pneumothorax. Multiple midline ster notomy wires. No acute osseous abnormality. Impression: Similar examination of the chest.
[2019-05-14] MEDS: Aspirin 325 mg Enteric Coated Tablet PO SCH (10:09)
[2019-05-14] MEDS: Losartan 25 MG TAB PO SCH (11:23)
[2019-05-14] MEDS: Carvedilol 25 MG TAB PO SCH (11:23)
[2019-05-14] MEDS ORDERED: Carvedilol 6.25 MG TAB PO SCH (11:45)
[2019-05-14] MEDS: Lorazepam 1 MG TAB PO PRN ×2 (14:57→22:30)
--- NOTE | 2019-05-14 20:47 | PRG ---
DATE OF SERVICE: 05/14/2019 SUBJECTIVE: Mr. Chinchilla is in no distress. He says he feels better, but his gas exchange had been better with diuresis. Oximetry is in the high 80s. It is recorded that is on room air, but that is not correct. OBJECTIVE: VITAL SIGNS: He is afebrile. Heart rate is in the 60s, blood pressure 135/65. Intake and output were recorded -1740, but it is recorded on the long day. The nursing staff has been asked to change this morning, but it has not been changed. LUNGS: Remarkable for crackles in both lung bases. HEART: Regular rhythm. ABDOMEN: Soft. His echocardiogram is pending. LABORATORY DATA: White count is 8.2, hemoglobin 14.6. BUN 37 and creatinine . IMPRESSION: Bilateral lower lobe infiltrates that I doubt are pulmonary edema. We will continue with attempts at diuresis to see if he gets improved gas exchange and an improved radiograph. I have explained to the patient and his that he may need a lung biopsy. Surgical lung biopsy may be the best option to get a diagnosis. Job ID: [id number]
[2019-05-14] MEDS: Carvedilol 6.25 MG TAB PO SCH (20:49)
[2019-05-14] MEDS: Atorvastatin Calcium 10 MG TAB PO SCH (20:50)
[2019-05-14] MEDS: Enoxaparin Sodium 60 MG/0.6 ML SYRINGE SC SCH (20:51)
--- NOTE | 2019-05-14 21:07 | CON ---
DATE OF CONSULTATION: HISTORY OF PRESENT ILLNESS: Miguel Chinchilla is a pleasant 83-year-old white male who underwent CABG x5 in February 1988. I was following him at that time. He was then seen by Dr. Mary in January 2015 and his ejection fraction was 30% to 35%. He was placed on appropriate therapy and repeat echo in May 2015 revealed ejection fraction had improved 45% to 50%. I again saw him in March 2018 and he was complaining of dyspnea on exertion and cough. He becomes short of breath with working in the yard raking leaves or with exertion. Furosemide had been started two months previously. He denied any chest discomfort. Echocardiogram at that time revealed ejection fraction of 40% to 45% with moderate to severe mitral regurgitation, moderate aortic stenosis, moderate aortic regurgitation. He had a cardiac PET scan, which revealed a fixed defect of the proximal lateral and proximal inferior gates. He then underwent cardiac catheterization on 05/09/2018. He was found to have inferior akinesis with ejection fraction of 40% to 45%. Wedge pressure was 5. Cardiac output was 4.015. Aortic valvular area is 2.63, it was felt that he had mild aortic stenosis. There was a 30% left main, 80% and 60% proximal LAD and total occlusion of the mid LAD. There was a 60% first diagonal stenosis. The ramus was totally occluded. The mid circumflex is totally occluded. The proximal RCA was totally occluded. Bypass grafts revealed patent SCHUMACHER to the LAD. There were patent vein grafts to the first diagonal, ramus, second obtuse marginal, and right coronary artery. He has been placed on increasing doses of furosemide for continued complaints of shortness of breath and rales on examination. Chest x-ray and his symptoms have not significantly improved. He therefore is admitted to undergo intravenous diuresis and probably, will need lung biopsy for definitive diagnosis. PAST MEDICAL HISTORY: History of myocardial infarction, hypercholesterolemia, hypertension, coronary artery disease, mild aortic stenosis, moderate mitral regurgitation. PAST SURGICAL HISTORY: CABG. MEDICATIONS: 1. Aspirin 325 daily. 2. Atorvastatin 10 at bedtime. 3. Furosemide 80 mg q.a.m., 40 mg q.p.m. 4. Probiotic daily. 5. Ativan 0.5 mg p.r.n. and 1 mg at bedtime. 6. Losartan 100 daily. 7. Vitamin B12 1000 mcg daily. 8. Omeprazole 20 daily. 9. Centrum Silver daily. ALLERGIES: NONE. SOCIAL HISTORY: He smoked in the distant past. He does not drink. FAMILY HISTORY: Father and brother had myocardial infarction. REVIEW OF SYSTEMS: A 12-point review of system is unremarkable except as noted above with the shortness of breath on exertion. VITAL SIGNS: Blood pressure 129/62, pulse of 66. HEENT: PERRL. NECK: Supple. CHEST: Clear anteriorly. Posteriorly, he has crackles at the bases. CARDIOVASCULAR: S1 and S2 normal without any S3 or S4. There is a 1/6 systolic ejection murmur. ABDOMEN: Normal bowel sounds without tenderness or organomegaly. EXTREMITIES: Revealed no clubbing, cyanosis, or edema. NEUROLOGICAL: Grossly intact. LABORATORY DATA: EKG revealed atrial fibrillation which is a new finding as well as nonspecific ST and T-wave changes. Chest x-ray reveals cardiomegaly with small effusions. CBC is unremarkable. Sodium 141, potassium 3.8, chloride 102, carbon dioxide 29, BUN 37, creatinine 1.24. BNP 295.8. IMPRESSION: 1. Bilateral alveolar infiltrates with crackles on exam, which did not appear to have improved with increased doses of outpatient furosemide. He will be given intravenous diuretics. He certainly may require lung biopsy. He is hypoxic with O2 saturations in the mid 80s at times. 2. Atrial fibrillation, which appears to be of new onset. I will check the office records, but I do not recall that he has ever been in atrial fibrillation in the past. His rate currently is controlled. 3. Status post CABG x5 with grafts patent in April 2018. 4. History of systolic and diastolic heart failure. 5. Mild aortic stenosis at the time of catheterization. 6. Hypercholesterolemia. 7. Hypertension. 8. Former smoker. PLAN: The patient will be treated with intravenous diuretics. Echocardiogram will be performed to reassess left ventricular function. He certainly may need to undergo lung biopsy. In the meantime, I will anticoagulate with 1 mg/kg of Lovenox. With his intermittently impaired left ventricular function, the only medication that could be used to suppress his atrial fibrillation would be amiodarone. However, with possible pulmonary fibrosis, I would be very hesitant to use that at this time and ultimately, he may be treated with rate control alone. Job ID: [id number] [facility]
[2019-05-15 05:31] LABS: Anion Gap 15 mmol/L (10-20); BUN (Urea Nitrogen) 45 mg/dL (8.4-25.7); Calc. Creatinine Clearance 38 mL/min (70-130); Calcium 9.3 mg/dL (7.8-10.44); Carbon Dioxide 29 mmol/L (23-31); Chloride 103 mmol/L (98-107); Estimated GFR-MDRD 49; Glucose 110 mg/dL (83-110); Potassium 3.8 mmol/L (3.5-5.1); Sodium 143 mmol/L (136-145)
[2019-05-15] MEDS: Furosemide 100 MG/10 ML VIAL SLOW IVP SCH ×2 (06:11→14:38)
--- NOTE | 2019-05-15 07:19 | EKG ---
Test Reason : Blood Pressure : / mmHG Vent. Rate : 060 BPM Atrial Rate : 063 BPM P-R Int : 000 ms QRS Dur : 120 ms QT Int : 426 ms P-R-T Axes : 000 020 170 degrees QTc Int : 426 ms Atrial fibrillation Non-specific intra-ventricular conduction delay Abnormal ECG When compared with ECG of 21-SEP-2018 15:22, Criteria for Inferior infarct are no longer Present T wave inversion less evident in Anterolateral leads Confirmed by DR. Jong CR ([id number]) on 05/15/2019 7:18:39 AM Referred By: Confirmed By:DR. Jong CR
--- NOTE | 2019-05-15 07:38 | RAD ---
EXAM: Portable chest PROVIDED CLINICAL HISTORY: Congestive heart failure COMPARISON: 05/14/2019 FINDINGS: Significant interval change with respect to the prior examination is not apparent. IMPRESSION: As above.
[2019-05-15] MEDS: Carvedilol 6.25 MG TAB PO SCH ×2 (08:37→21:06)
[2019-05-15] MEDS: Aspirin 325 mg Enteric Coated Tablet PO SCH (08:37)
[2019-05-15] MEDS: Losartan 25 MG TAB PO SCH (08:38)
[2019-05-15] MEDS: Enoxaparin Sodium 60 MG/0.6 ML SYRINGE SC SCH (08:41)
[2019-05-15] MEDS: Lorazepam 1 MG TAB PO PRN ×2 (13:29→22:52)
--- NOTE | 2019-05-15 17:45 | CON ---
DATE OF CONSULTATION: 05/15/2019 I was asked to see Mr. Chinchilla by Dr. Reed Deras to discuss thoracoscopic lung biopsies for persistent bilateral lower lobe infiltrates with hypoxia. HISTORY OF PRESENT ILLNESS: Mr. Chinchilla is an 83-year-old gentleman, who has had on CT scan infiltrates bilaterally in the lower lobes. He has a history of coronary artery bypass grafting in the late . He underwent echocardiogram, which shows good ventricular function with no wall motion deficits. He was diuresed at the time of admission, which has made no change in his chest x-ray. He has a persistent nonproductive cough and hypoxia with room air oxygen levels in the low 80s. He is currently on 5 L of oxygen via nasal cannula, and oxygen saturations are in the low 90s. He has no history of pneumonia. He has no history of fever or chills, He has not traveled recently. He has never had any history of other pulmonary processes. PAST MEDICAL HISTORY: 1. Coronary artery disease. 2. Dyslipidemia. 3. Hypertension. 4. Bilateral lower lobe infiltrates. PAST SURGICAL HISTORY: Coronary artery bypass grafting [place] [address] Diego. SOCIAL HISTORY: He does not use tobacco currently. He has smoked in the very distant past. He is , and this interview was accompanied by his . ALLERGIES: NONE. CURRENT MEDICATIONS: Noted. REVIEW OF SYSTEMS: A 10-point review of systems is performed and is negative except as above. PHYSICAL EXAMINATION: GENERAL: This is an elderly and diminutive gentleman, resting comfortably in the chair. VITAL SIGNS: Height is 5 feet 5 inches, weight is 143 pounds, BSA is 1.73. Temperature is 97.6, pulse is 77 and regular, and blood pressure is 97/57. HEENT: Sclerae nonicteric. Pupils equal and round bilaterally. NECK: Supple without bruit. CHEST: He has crackles in the lower lung mcbride bilaterally. His sternum is healed nicely. HEART: Rhythm is regular. ABDOMEN: Soft and nontender. EXTREMITIES: There is no edema. ASSESSMENT: I have reviewed his CT scan series and chest x-ray series with Dr. Deras. He has persistent bilateral lower lobe infiltrates with no diagnosis to support these infiltrates. We have discussed thoracoscopic biopsy with him, and he is agreeable. We will plan for right-sided biopsies tomorrow. Job ID: [id number]
--- NOTE | 2019-05-15 18:33 | PRG ---
DATE OF SERVICE: 05/15/2019 Mr. Chinchilla really has not clinically changed much. His saturation has been 91% today on 5 L cannula. It is in the computer that he had 87 sat on room air, but there is no way that is accurate. His noticed that his O2 saturations at home had been declining over the last month. I went over the options with them. Surgical lung biopsy, do nothing or empiric treatment with steroids. I strongly advised against empiric treatment with steroids as we have no idea what we are treating. I do not feel that this is an infectious process because his CAT scan last summer looks very similar to his CT scan now. This does not have the appearance of postinflammatory scarring after pneumonia or bronchiolitis obliterans. If this was an infectious process, I would think he would have progressed or regressed. If it was bronchoalveolar carcinoma, would have expected it to progress. I think a surgical biopsy is the best option at this time. I have explained that I think the risks are acceptable, but not zero. I have explained that his gas exchange will probably deteriorate postop for a short period of time. Observation in the critical care unit I think will be important after surgery. Dr. Gonzales was gracious enough to see him in consultation and has placed him on the schedule for a surgical lung biopsy tomorrow. Hopefully, they will not change their mind. I have explained multiple times that clinically his radiograph and presentation is not consistent with congestive heart failure. He had 2 days of IV diuretics and a brisk diuresis at first, but then no further significant diuresis. Unfortunately, his diuresis has not been documented on the intake and output requested. His Lasix now on hold as his BUN and creatinine are starting to go up. Probably need to be resumed at some point after surgery. There has been no significant change in his exam overall. Job ID: [id number]
[2019-05-15] MEDS: Atorvastatin Calcium 10 MG TAB PO SCH (21:06)
[2019-05-16] MEDS: Sodium Chloride 0.9% 1,000 ML IV SCH ×2 (00:08→21:02)
[2019-05-16 04:56] LABS: #Basophils 0.1 thou/uL (0.0-0.2); #Eosinphils 0.3 thou/uL (0.0-0.7); #Lymphocytes 1.5 thou/uL (1.20-3.40); #Monocytes 0.8 thou/uL (0.11-0.59); #Neutrophils 5.9 thou/uL (1.40-6.50); %Eosinophils 3.5 % (0.0-10.0); %Lymphocytes 17.7 % (21.0-51.0); %Monocytes 8.9 % (0.0-10.0); %Neutrophils 68.9 % (42.0-75.0); Hemoglobin 14.7 g/dL (14.0-18.0); Mean Corpuscular Volume 90.9 fL (78.0-98.0); Mean Platelet Volume 7.6 fL (7.4-10.4); Platelet Count 176 thou/uL (130-400); RBC Distribution Width 12.6 % (11.5-14.5); Red Blood Cell (RBC) Count 4.92 mill/uL (4.70-6.10); White Blood Cell (WBC) Count 8.6 thou/uL (4.8-10.8)
[2019-05-16 05:11] LABS: Anion Gap 14 mmol/L (10-20); BUN (Urea Nitrogen) 53 mg/dL (8.4-25.7); Calc. Creatinine Clearance 37 mL/min (70-130); Carbon Dioxide 27 mmol/L (23-31); Chloride 104 mmol/L (98-107); Estimated GFR-MDRD 48; Glucose 117 mg/dL (83-110); Potassium 3.7 mmol/L (3.5-5.1); Sodium 141 mmol/L (136-145)
--- NOTE | 2019-05-16 09:06 | PRG ---
DATE OF SERVICE: 05/16/2019 OBJECTIVE: GENERAL: Mr. Chinchilla is in no distress. VITAL SIGNS: He is afebrile. Heart rate 66, respiratory rate is 20, oximetry is 90%, blood pressure is 153/89. LUNGS: Still with crackles. He is for surgical lung biopsy today. IMPRESSION: 1. Persistent bilateral lower lobe infiltrates of unclear etiology. For surgical lung biopsy. 2. 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 His chest x-ray and exam did not improve with IV diuresis. He will go to the ICU after surgery. Job ID: [id number]
[2019-05-16] MEDS ORDERED: Dexamethasone 20 MG/5 ML VIAL ONE (12:13)
[2019-05-16] MEDS ORDERED: Lidocaine 1% PF 5 ML VIAL ONE (12:13)
[2019-05-16] MEDS ORDERED: Ondansetron PF 4 MG/2 ML Vial ONE ×2 (12:13→13:18)
[2019-05-16] MEDS ORDERED: Rocuronium Bromide 10 MG/ML (10ML VIAL) ONE (12:13)
[2019-05-16] MEDS ORDERED: EPHEDRINE 25 MG/5 ML SYRINGE ONE (12:13)
[2019-05-16] MEDS ORDERED: PROPOFOL 200 MG/20 ML VIAL ONE (12:13)
[2019-05-16] MEDS ORDERED: PHENYLEPHRINE-NS 100 MCG/ML 10 ML SYRINGE ONE (12:13)
[2019-05-16] MEDS ORDERED: Glycopyrrolate 0.2 MG/ML 5 ML SYRINGE ONE (12:13)
[2019-05-16] MEDS: Aspirin 325 mg Enteric Coated Tablet PO SCH (12:46)
[2019-05-16] MEDS: Losartan 25 MG TAB PO SCH (12:47)
[2019-05-16] MEDS: Carvedilol 6.25 MG TAB PO SCH ×2 (12:47→21:01)
[2019-05-16] MEDS ORDERED: Bupivacaine PF 0.5% 30 ML VIAL ONE (12:53)
[2019-05-16] MEDS ORDERED: Lidocaine 1% w/Epinephrine 1:100K 20 ML VIAL ONE (12:53)
[2019-05-16] MEDS ORDERED: Fentanyl 250 MCG/5 ML VIAL ONE (13:08)
[2019-05-16] MEDS ORDERED: Albuterol Sulfate 2.5 mg/3 ml Neb NEB SCH (13:15)
[2019-05-16] MEDS ORDERED: Meperidine HCl/PF 25 MG/ML VIAL ONE (13:17)
[2019-05-16] MEDS ORDERED: Ketorolac Tromethamine 30 MG/ML VIAL ONE (13:18)
[2019-05-16] MEDS ORDERED: Dexamethasone 4 mg/ml Vial ONE (13:18)
[2019-05-16] MEDS ORDERED: PROPOFOL 0 ML ONE (13:18)
[2019-05-16] MEDS ORDERED: EPINEPHrine 1 MG/ML AMP ONE (14:30)
[2019-05-16] MEDS ORDERED: SUGAMMADEX SODIUM 200 MG/2 ML VIAL ONE (14:47)
[2019-05-16] MEDS ORDERED: Ondansetron HCl/PF 4 MG/2 ML Vial IVP PRN (15:12)
[2019-05-16] MEDS ORDERED: Fentanyl 100 MCG/2 ML VIAL ONE ×2 (15:23→16:22)
--- NOTE | 2019-05-16 15:52 | RAD ---
PORTABLE CHEST ONE VIEW: 05/16/19 at 2:52 p.m. HISTORY: Status post right sided thoracoscopy. FINDINGS/IMPRESSION: Comparison made with exam from previous day. Internal placement of a right sided chest tube is seen since the previous day's exam. No pneumothora x is seen. There are patchy opacities in the lower lung zones, right greater than left. Heart size is stable. Changes of median sternotomy again seen. POS: OFF
--- NOTE | 2019-05-16 17:59 | OP ---
DATE OF PROCEDURE: 05/16/2019 PREOPERATIVE DIAGNOSIS: Interstitial lung disease with hypoxia. POSTOPERATIVE DIAGNOSIS: Interstitial lung disease with hypoxia. PROCEDURE PERFORMED: Right thoracoscopy with right middle and lower lobe lung biopsy. ANESTHESIA: General endotracheal. ESTIMATED BLOOD LOSS: Minimal. DRAINS: [id number] chest tube x1. SPECIMENS: 1. Right middle lobe for pathology. 2. Right lower lobe for pathology and culture. DESCRIPTION OF PROCEDURE: After consent was obtained, patient was brought to the operating room, placed in supine position on the operating table. Appropriate central line and monitors were placed and general endotracheal anesthesia was induced. The patient was placed in left lateral decubitus position. Joints were appropriately padded and SCDs used. Right chest wall was prepped and draped in usual sterile fashion. Three separate port incisions were made. Thoracoscope was inserted, and the lung was inspected. The lung had a speckled appearance throughout. The lung palpated normally without dense feeling tissue thoracoscopically. Two separate areas, one in the middle lobe and one in the lower lobe were wedged. A 28-Khmer chest tube was placed through the anterior port site. Lung was re-expanded and filled the chest cavity nicely. The remainder of the port sites were closed in layers and Dermabond applied to skin. The patient was awakened, extubated, and transferred to recovery room in stable condition. Needle, sponge, and instrument counts were all reported as correct at the end of the procedure. Job ID: [id number]
[2019-05-16] MEDS: Fentanyl 100 MCG/2 ML VIAL SLOW IVP PRN (20:59)
[2019-05-16] MEDS: Atorvastatin Calcium 10 MG TAB PO SCH (21:01)
[2019-05-16] MEDS: CEFAZOLIN 2 GM in Premix Bag 1 BAG IVPB SCH (21:03)
[2019-05-17] MEDS: Fentanyl 100 MCG/2 ML VIAL SLOW IVP PRN ×6 (00:09→22:36)
[2019-05-17] MEDS: traMADol HCl 50 MG TAB PO PRN ×3 (03:46→17:12)
[2019-05-17 04:11] LABS: #Lymphocytes 0.7 thou/uL (1.20-3.40); #Monocytes 0.6 thou/uL (0.11-0.59); #Neutrophils 11.3 thou/uL (1.40-6.50); %Basophils 0.2 % (0.0-1.0); %Eosinophils 0.1 % (0.0-10.0); %Lymphocytes 5.2 % (21.0-51.0); %Monocytes 4.8 % (0.0-10.0); %Neutrophils 89.7 % (42.0-75.0); Hemoglobin 14.6 g/dL (14.0-18.0); Mean Corpuscular HGB CONC 31.9 g/dL (32.0-36.0); Mean Corpuscular Hemoglobin 29.5 pg (27.0-31.0); Mean Corpuscular Volume 92.6 fL (78.0-98.0); Mean Platelet Volume 7.9 fL (7.4-10.4); Platelet Count 176 thou/uL (130-400); RBC Distribution Width 12.5 % (11.5-14.5); Red Blood Cell (RBC) Count 4.94 mill/uL (4.70-6.10); White Blood Cell (WBC) Count 12.5 thou/uL (4.8-10.8)
[2019-05-17 04:31] LABS: Anion Gap 16 mmol/L (10-20); BUN (Urea Nitrogen) 41 mg/dL (8.4-25.7); Calc. Creatinine Clearance 41 mL/min (70-130); Calcium 9.1 mg/dL (7.8-10.44); Carbon Dioxide 28 mmol/L (23-31); Chloride 105 mmol/L (98-107); Estimated GFR-MDRD 54; Glucose 136 mg/dL (83-110); Potassium 4.5 mmol/L (3.5-5.1); Sodium 144 mmol/L (136-145)
[2019-05-17] MEDS: CEFAZOLIN 2 GM in Premix Bag 1 BAG IVPB SCH ×2 (06:08→14:04)
[2019-05-17] MEDS: Carvedilol 6.25 MG TAB PO SCH ×2 (07:35→20:04)
[2019-05-17] MEDS: Aspirin 325 mg Enteric Coated Tablet PO SCH (07:36)
[2019-05-17] MEDS: Losartan 25 MG TAB PO SCH (07:37)
[2019-05-17] MEDS: Lorazepam 1 MG TAB PO PRN ×2 (07:40→22:36)
--- NOTE | 2019-05-17 10:10 | RAD ---
CHEST 1 VIEW: Date: 05/17/2019 HISTORY: Thoracostomy. COMPARISON: Radiograph prior day. FINDINGS: Right-sided thoracostomy tube is similar. Heart size is enlarged. Trace right moderate left effusion. Bibasilar atelectasis. Lungs are hypoinflated. Multiple midline sternotomy wires. No significant right-sided pneumothorax is appreciated. IMPRESSION: 1. No significant right-sided pneumothorax appreciated. 2. Pleural effusions and atelectatic changes in the lung bases. POS: OFF
[2019-05-17] MEDS ORDERED: Furosemide 40 MG/4 ML VIAL SLOW IVP SCH (13:45)
--- NOTE | 2019-05-17 14:02 | PRG ---
DATE OF SERVICE: 05/17/2019 SERVICE: Pulmonary Medicine. INTERVAL HISTORY: The patient is doing really well from respiratory standpoint. He indicates he is breathing comfortably. He has no chest discomfort, nausea, vomiting, fevers, or chills and is otherwise returning to his usual state of health. Any time he takes a deep breath or cough is hard, he gets a stitch in this side. Outside of that, he is fairly comfortable. PHYSICAL EXAMINATION: VITAL SIGNS: Afebrile currently with a T-max of 99.3. Pulse 70, blood pressure 108/73, respirations 27, and saturation 86% currently on 3 L nasal cannula. GENERAL: The patient is awake and alert, in no apparent distress. LUNGS: Good air entry bilaterally. Crackles are present. There is a slightly prolonged expiratory phase, but no wheezing. HEART: Normal rate and regular. ABDOMEN: Soft, nontender, and nondistended. Bowel sounds are positive. MUSCULOSKELETAL: No cyanosis or clubbing. There is trace pitting in the bilateral lower extremities. LABORATORY DATA: WBC 12.5, hemoglobin 14.6, and platelets 176,000. Neutrophil count is up trending to 90%. Creatinine 1.27. BUN 41 and downtrending. Basic metabolic profile is otherwise unremarkable. Bacterial culture from the right lower lobe had many white blood cells, though there were no organisms identified and there is no growth at 24 hours. IMAGING: Chest x-ray demonstrates interstitial process throughout bilateral lung mcbride. Cardiomegaly is present. Sternotomy wires are noted. There is a right-sided thoracostomy tube, which is in good position. Overall, there is no significant interval change. ASSESSMENT: 1. Acute on chronic hypoxic respiratory failure. 2. Interstitial lung disease, not currently otherwise specified. 3. Open lung biopsy, postop day #1. DISCUSSION AND PLAN: We will continue supportive care. Chest tube remains in place. Hopefully, it will be removed within 24 to 48 hours. Pulmonary/Critical Care will continue to follow along while the patient remains in this location. IV fluids will be interrupted as he is tolerating p.o., and I will give him a single dose of Lasix. Job ID: [id number]
[2019-05-17] MEDS: Atorvastatin Calcium 10 MG TAB PO SCH (20:04)
[2019-05-17] MEDS: Enoxaparin Sodium 60 MG/0.6 ML SYRINGE SC SCH (20:05)
[2019-05-18] MEDS: Fentanyl 100 MCG/2 ML VIAL SLOW IVP PRN ×2 (03:31→08:40)
[2019-05-18 03:56] LABS: #Basophils 0.1 thou/uL (0.0-0.2); #Eosinphils 0.1 thou/uL (0.0-0.7); #Lymphocytes 1.6 thou/uL (1.20-3.40); #Monocytes 1.3 thou/uL (0.11-0.59); #Neutrophils 8.5 thou/uL (1.40-6.50); %Basophils 0.5 % (0.0-1.0); %Lymphocytes 13.6 % (21.0-51.0); %Monocytes 11.3 % (0.0-10.0); %Neutrophils 73.6 % (42.0-75.0); Mean Corpuscular HGB CONC 32.6 g/dL (32.0-36.0); Mean Corpuscular Hemoglobin 30.1 pg (27.0-31.0); Mean Corpuscular Volume 92.5 fL (78.0-98.0); Mean Platelet Volume 7.6 fL (7.4-10.4); Platelet Count 146 thou/uL (130-400); RBC Distribution Width 12.5 % (11.5-14.5); Red Blood Cell (RBC) Count 4.66 mill/uL (4.70-6.10); White Blood Cell (WBC) Count 11.5 thou/uL (4.8-10.8)
[2019-05-18 04:30] LABS: Anion Gap 11 mmol/L (10-20); BUN (Urea Nitrogen) 36 mg/dL (8.4-25.7); Calc. Creatinine Clearance 45 mL/min (70-130); Calcium 9.2 mg/dL (7.8-10.44); Carbon Dioxide 31 mmol/L (23-31); Chloride 99 mmol/L (98-107); Estimated GFR-MDRD 60; Glucose 102 mg/dL (83-110); Potassium 4.1 mmol/L (3.5-5.1); Sodium 137 mmol/L (136-145)
[2019-05-18] MEDS: Enoxaparin Sodium 60 MG/0.6 ML SYRINGE SC SCH ×2 (08:40→20:23)
[2019-05-18] MEDS: Aspirin 325 mg Enteric Coated Tablet PO SCH (08:42)
[2019-05-18] MEDS: Lorazepam 1 MG TAB PO PRN (08:43)
[2019-05-18] MEDS: Carvedilol 6.25 MG TAB PO SCH ×2 (08:43→20:22)
[2019-05-18] MEDS: Losartan 25 MG TAB PO SCH (08:46)
--- NOTE | 2019-05-18 08:55 | RAD ---
PORTABLE CHEST: Date: 05/18/2019 HISTORY: Shortness of breath. COMPARISON: 05/17/2019. FINDINGS: Right side chest tube is unchanged. Right basilar infiltrate and atelectasis again noted, more promin ent today. Left basilar atelectasis and/or infiltrate also again noted. There is cardiomegaly and mil d vascular congestion. There is evidence of small right apical pneumothorax, slightly more prominent than on yesterday's exa m. IMPRESSION: 1. Small right apical pneumothorax. 2. Increasing bibasilar infiltrates. POS: [facility]
[2019-05-18] MEDS ORDERED: traMADol HCl 50 MG TAB PO PRN (12:03)
[2019-05-18] MEDS ORDERED: Polyethylene Glycol 3350 17 GM Packet PO SCH (18:15)
--- NOTE | 2019-05-18 18:21 | PRG ---
DATE OF SERVICE: 05/18/2019 SERVICE: Pulmonary Medicine. INTERVAL HISTORY: The patient is doing really well from respiratory standpoint. Oxygen saturations have actually improved slightly. That being said, last night, he had an acute confusional state and was pulling lines and tubes. This morning, he was extremely sleepy. That being said, this afternoon he sitting in a chair. He is alert and attentive. He is talking with his family. Otherwise, there has been no interval change to his condition. PHYSICAL EXAMINATION: VITAL SIGNS: Afebrile with a T-max of 99.8, pulse 72, blood pressure 135/99, respirations 20, and saturation 89%, currently on 3 L nasal cannula. GENERAL: The patient is awake and alert, in no apparent distress. LUNGS: Great air entry. Crackles are present. They are improved compared to yesterday. HEART: Normal rate, regular. ABDOMEN: Soft, nontender, and nondistended. Bowel sounds are positive. MUSCULOSKELETAL: No cyanosis or clubbing. There is no pitting in the bilateral lower extremities. NEUROLOGIC: Grossly nonfocal. LABORATORY DATA: Sodium 137, creatinine 1.17 and downtrending, BUN 36. Basic metabolic profile is otherwise unremarkable. WBC 11.5, hemoglobin 14.0, and platelets 146,000. All culture results remain negative to date. IMAGING STUDIES: Chest x-ray demonstrates good expansion of bilateral lungs. Thoracostomy tube is present on the right. There is pleural parenchymal density in the right base. Otherwise, I do not appreciate any acute process. ASSESSMENT: 1. Acute on chronic hypoxic respiratory failure. 2. Pulmonary infiltrate, status post open lung biopsy. 3. Patulous esophagus. 4. Delirium. DISCUSSION AND PLAN: We are awaiting pathology results. Oxygenation is currently at baseline. We will watch very closely for evidence of increasing infection. If present, empiric antibiotics directing at skin sultana will be considered. For the delirium, I will give him a dose of Seroquel in the evening time. I will provide him with a stool softener per the patient's request. Pulmonary/Critical Care will follow in this location. Job ID: [id number]
[2019-05-18] MEDS: Senokot S 8.6-50 MG TAB PO SCH (20:22)
[2019-05-18] MEDS: Atorvastatin Calcium 10 MG TAB PO SCH (20:23)
[2019-05-19 04:24] LABS: Phosphorus 2.1 mg/dL (2.3-4.7)
[2019-05-19 04:26] LABS: Anion Gap 9 mmol/L (10-20); BUN (Urea Nitrogen) 27 mg/dL (8.4-25.7); Calc. Creatinine Clearance 69 mL/min (70-130); Carbon Dioxide 30 mmol/L (23-31); Chloride 100 mmol/L (98-107); Estimated GFR-MDRD Greater than 90; Glucose 109 mg/dL (83-110); Magnesium 2.1 mg/dL (1.6-2.6); Potassium 3.9 mmol/L (3.5-5.1); Sodium 135 mmol/L (136-145)
[2019-05-19 04:47] LABS: #Eosinphils 0.3 thou/uL (0.0-0.7); #Lymphocytes 1.1 thou/uL (1.20-3.40); #Monocytes 0.8 thou/uL (0.11-0.59); %Basophils 0.3 % (0.0-1.0); %Eosinophils 2.6 % (0.0-10.0); %Lymphocytes 9.1 % (21.0-51.0); %Monocytes 6.5 % (0.0-10.0); %Neutrophils 81.4 % (42.0-75.0); Hemoglobin 12.8 g/dL (14.0-18.0); Mean Corpuscular HGB CONC 33.2 g/dL (32.0-36.0); Mean Corpuscular Volume 90.5 fL (78.0-98.0); Platelet Count 118 thou/uL (130-400); Platelet Morphology Comment Appears Decreased; RBC Distribution Width 12.2 % (11.5-14.5); Red Blood Cell (RBC) Count 4.26 mill/uL (4.70-6.10); White Blood Cell (WBC) Count 12.3 thou/uL (4.8-10.8)
[2019-05-19] MEDS: Enoxaparin Sodium 60 MG/0.6 ML SYRINGE SC SCH ×2 (08:29→21:34)
[2019-05-19] MEDS: Carvedilol 6.25 MG TAB PO SCH ×2 (08:30→21:35)
[2019-05-19] MEDS: Polyethylene Glycol 3350 17 GM Packet PO SCH (08:30)
[2019-05-19] MEDS: Aspirin 325 mg Enteric Coated Tablet PO SCH (08:30)
[2019-05-19] MEDS: Senokot S 8.6-50 MG TAB PO SCH (08:30)
--- NOTE | 2019-05-19 09:13 | PRG ---
DATE OF SERVICE: 05/19/2019 SUBJECTIVE: He has chest tube pulled out today. He is feeling okay. He still requiring a high amount of oxygen and his O2 saturations are best about 88%. OBJECTIVE: VITAL SIGNS: Temperature is 98.0, pulse 80, blood pressure 95/58. HEENT: Unremarkable. NECK: No adenopathy or JVD. LUNGS: He has crackles in both bases. CARDIAC: S1 and S2, regular. ABDOMEN: Soft. EXTREMITIES: No edema. LABORATORY DATA: Sodium 135, potassium 3.9, chloride 100, CO2 of 30, BUN 27, creatinine 0.7, glucose 109. White blood cell count 12.3, hematocrit 38.6, and platelet count 118. ASSESSMENT: 1. Pleural-based parenchymal densities, now status post open lung biopsy with pending pathology. 2. Hypoxemia. 3. Patulous esophagus. 4. Resolving delirium. PLAN: 1. Wean oxygen as tolerated. His hypoxemia will probably necessitate him staying in the IMCU at least one more day. 2. Await pathology results to further discuss treatment. 3. Continue current treatment, otherwise. Job ID: [id number]
[2019-05-19] MEDS: Losartan 25 MG TAB PO SCH (09:25)
[2019-05-19 17:00] VITALS: BMI 24.1
[2019-05-19] MEDS: Atorvastatin Calcium 10 MG TAB PO SCH (21:35)
[2019-05-20 04:16] LABS: Anion Gap 11 mmol/L (10-20); BUN (Urea Nitrogen) 23 mg/dL (8.4-25.7); Calc. Creatinine Clearance 68 mL/min (70-130); Calcium 9.1 mg/dL (7.8-10.44); Carbon Dioxide 29 mmol/L (23-31); Chloride 100 mmol/L (98-107); Estimated GFR-MDRD Greater than 90; Glucose 94 mg/dL (83-110); Potassium 3.7 mmol/L (3.5-5.1); Sodium 136 mmol/L (136-145)
[2019-05-20 04:32] LABS: #Eosinphils 0.3 thou/uL (0.0-0.7); #Monocytes 0.7 thou/uL (0.11-0.59); #Neutrophils 6.5 thou/uL (1.40-6.50); %Basophils 0.4 % (0.0-1.0); %Eosinophils 3.5 % (0.0-10.0); %Lymphocytes 12.1 % (21.0-51.0); Hemoglobin 13.2 g/dL (14.0-18.0); Mean Corpuscular HGB CONC 31.4 g/dL (32.0-36.0); Mean Corpuscular Hemoglobin 28.1 pg (27.0-31.0); Mean Corpuscular Volume 89.5 fL (78.0-98.0); Mean Platelet Volume 8.7 fL (7.4-10.4); Platelet Count 124 thou/uL (130-400); RBC Distribution Width 12.2 % (11.5-14.5); Red Blood Cell (RBC) Count 4.71 mill/uL (4.70-6.10); White Blood Cell (WBC) Count 8.6 thou/uL (4.8-10.8)
[2019-05-20] MEDS: Aspirin 325 mg Enteric Coated Tablet PO SCH (10:03)
[2019-05-20] MEDS: Losartan 25 MG TAB PO SCH (10:03)
[2019-05-20] MEDS: Carvedilol 6.25 MG TAB PO SCH ×2 (10:03→21:03)
[2019-05-20] MEDS ORDERED: Lorazepam 1 MG TAB PO PRN (10:04)
[2019-05-20] MEDS: Enoxaparin Sodium 60 MG/0.6 ML SYRINGE SC SCH ×2 (10:04→21:04)
[2019-05-20] MEDS: Lorazepam 1 MG TAB PO PRN (10:05)
--- NOTE | 2019-05-20 10:31 | PRG ---
DATE OF SERVICE: 05/20/2019 SUBJECTIVE: The patient is doing reasonably well. He wants to get up and start walking. He also wants some changes to his lorazepam regimen. OBJECTIVE: VITAL SIGNS: Temperature 98.1, pulse 81, blood pressure 155/80. HEENT: Unremarkable. NECK: No adenopathy or JVD. LUNGS: Diffuse crackles bilaterally. CARDIAC: S1 and S2, irregular. ABDOMEN: Soft. EXTREMITIES: No edema. LABORATORY DATA: Sodium 136, potassium 3.7, BUN 23, creatinine 0.7. White blood cell count 8.6, hematocrit 42.2, and platelet count 124. ASSESSMENT: 1. Interstitial/pleural-based lung disease with pending pathology from open lung biopsy. 2. Paroxysmal atrial fibrillation. 3. Hypoxemia. 4. Resolved delirium. PLAN: 1. Transfer out to telemetry. He needs telemetry monitoring for his atrial fibrillation. 2. Discontinue Seroquel. Put him back on a scheduled Ativan. 3. Discontinue labs. Job ID: [id number]
[2019-05-20] MEDS: Polyethylene Glycol 3350 17 GM Packet PO SCH (12:07)
[2019-05-20] MEDS ORDERED: Nitroglycerin 0.4 MG TAB (25 Tab Bottle) ONE (12:50)
[2019-05-20] MEDS: Lorazepam 0.5 MG TAB PO PRN (15:49)
[2019-05-20] MEDS: Atorvastatin Calcium 10 MG TAB PO SCH (21:02)
[2019-05-21] MEDS: Aspirin 325 mg Enteric Coated Tablet PO SCH (09:14)
[2019-05-21] MEDS: Carvedilol 6.25 MG TAB PO SCH (09:15)
[2019-05-21] MEDS: Losartan 25 MG TAB PO SCH (09:16)
[2019-05-21] MEDS: Enoxaparin Sodium 60 MG/0.6 ML SYRINGE SC SCH (09:17)
[2019-05-21 09:18] VITALS: BP 132/69
[2019-05-21] MEDS: Lorazepam 0.5 MG TAB PO PRN ×2 (09:23→14:14)
--- NOTE | 2019-05-21 12:24 | DIS ---
DATE OF ADMISSION: 05/13/2019 DATE OF DISCHARGE: 05/21/2019 CONSULTING PHYSICIANS: 1. Dr. Lucio Tamez for new-onset atrial fibrillation. 2. Dr. Luis Gonzales for pleural-based lung mass. PROCEDURES PERFORMED: 1. Echocardiogram on 05/15/2019, demonstrating depressed ejection fraction of 45% to 50% with moderate mitral regurgitation and moderate aortic stenosis. 2. Right thoracoscopy with right middle lobe and right lower lobe lung biopsies on 05/16/[address] 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 DISCHARGE MEDICATIONS: Identical to admission medications including; 1. Lorazepam 0.5 mg b.i.d. and 1 mg at bedtime. 2. Omeprazole 20 mg daily. 3. Furosemide 80 mg at 9:00 a.m. and 40 mg at 3:00 p.m. 4. Aspirin 325 mg daily. 5. Ativan 1 mg daily. 6. Carvedilol 25 mg b.i.d. 7. Losartan 100 mg daily. 8. Vitamin B12 of 1000 mcg daily. 9. Atorvastatin 10 mg daily. 10. Multivitamin one daily. 11. Lactobacillus one capsule daily. 12. Vitamin C 1000 mg daily. Decision was made not to anticoagulate the patient with Xarelto, warfarin, or Eliquis due to his stage IV lung cancer. DISPOSITION: The patient is going home. He will have oxygen set up at 5 L nasal cannula, to wear 24 hours daily. He will follow up with Dr. Deras and Dr. Gonzales in [address] Gonzales has contacted Dr. Butler so that he can follow up in her office immediately for consideration of chemotherapy. SUMMARY OF HOSPITALIZATION: The patient was admitted to the hospital by Dr. Deras on 05/13/2019 for bilateral alveolar infiltrates in both lower lobes without specific etiology. Dr. Tamez was consulted for atrial fibrillation. Dr. Luis Gonzales was consulted for thoracoscopic lung biopsy, which was performed on 05/08/2019, which returned diagnosis of bronchoalveolar cancer. The patient's postoperative course was complicated by hypoxemia and he required oxygen 5 L nasal cannula at the time of discharge. Dr. Luis Gonzales spoke to Dr. Ryanne Butler about followup for the cancer on an outpatient basis. Job ID: [id number]
[2019-05-21 15:23] VITALS: TEMP 98.2
== END 2019-05-21 16:56 | disposition home or self-care (01) | DRG 166 ==
LOC: 2SE 16:33 → IMCU/EMU 05-16 16:46
PROVIDERS: ADMIT Internal Medicine Critical Care Medicine; ATTEND Internal Medicine Critical Care Medicine
PROC: 0BBF4ZX Excision of Right Lower Lung Lobe, Percutaneous Endoscopic Approach, Diagnostic (ICD-10-PCS; principal; 2019-05-16)
PROC: 0BBD4ZX Excision of Right Middle Lung Lobe, Percutaneous Endoscopic Approach, Diagnostic (ICD-10-PCS; 2019-05-16)
DX: C34.2 Malignant neoplasm of middle lobe, bronchus or lung (principal); J96.21 Acute and chronic respiratory failure with hypoxia; J84.9 Interstitial pulmonary disease, unspecified; I42.8 Other cardiomyopathies; C34.31 Malignant neoplasm of lower lobe, right bronchus or lung; I25.10 Atherosclerotic heart disease of native coronary artery without angina pectoris; I10 Essential (primary) hypertension; E78.00 Pure hypercholesterolemia, unspecified; I34.0 Nonrheumatic mitral (valve) insufficiency; K22.8 Other specified diseases of esophagus; I48.0 Paroxysmal atrial fibrillation; R41.0 Disorientation, unspecified; Z95.1 Presence of aortocoronary bypass graft; Z87.891 Personal history of nicotine dependence; I25.2 Old myocardial infarction; Z79.82 Long term (current) use of aspirin; Z79.899 Other long term (current) drug therapy
CPT/HCPCS: 36415; 71045; 71046; 80048; 83735; 84100; 85025; 87070; 87116; 87205; 87206; 88307; 93005; 93010; 93306; 94640; J0171; J0690; J1100; J1650; J1885; J1940; J2001; J2175; J2405; J2704; J3010; J7620; S0020

== ENCOUNTER 2019-06-04 10:54 | Outpatient (CLI) | payer MEDICARE, BC ==
--- NOTE | 2019-06-04 11:58 | RAD ---
CHEST 2 VIEWS: Date: 06/04/2019 HISTORY: Interstitial lung disease. COMPARISON: 05/18/2019 and 05/12/2019. FINDINGS: The previously noted right chest tube has been removed from the prior study. Stable appearing cardiom egaly, postop midline sternotomy, and interstitial and reticulonodular parenchymal changes throughout both lungs, particularly the mid and lower lung zones. No significant new process. IMPRESSION: No significant new process. Overall stable bilateral mid and lower lung zone parenchymal changes. No evidence of pneumothorax following chest tube removal. POS: [facility]
== END 2019-06-04 10:55 | disposition home or self-care (01) ==
LOC: RAD 10:54
PROVIDERS: ATTEND Thoracic Surgery (Cardiothoracic Vascular Surgery)
DX: I25.10 Atherosclerotic heart disease of native coronary artery without angina pectoris (principal); J84.9 Interstitial pulmonary disease, unspecified; I10 Essential (primary) hypertension
CPT/HCPCS: 71046

== ENCOUNTER 2019-06-05 08:00 | Outpatient (CLI) | payer MEDICARE, BC ==
--- NOTE | 2019-06-05 10:15 | PET ---
EXAM: PET CT skull to mid thigh COMPARISON: CT chest 04/30/2019 HISTORY: Malignant neoplasm of overlapping sites of right bronchus and along TECHNIQUE: A PET/CT was performed from the skull to the mid thigh after administration of 12.8 millic uries of F-18 FDG. Evaluation was performed on a [employer] workstation. FINDINGS: NECK: No areas of hypermetabolic activity CHEST: Atelectasis versus consolidation is seen in the bilateral lower lobes. This is slightly mass l ricardo on the right. The bilateral lower lobes have hypermetabolic activity in these areas of consolidation with a max SUV value of 3.9. There is a trace right pleural effusion which is not hyper metabolic. ABDOMEN/PELVIS: No areas of hypermetabolic activity SKELETON: No areas of hypermetabolic activity CT images used for attenuation correction show the patient is status post CABG. Scattered diverticula are seen in the colon. Atherosclerotic calcification are seen in the aorta.. IMPRESSION: Hypermetabolic activity in both lower lobes may represent bilateral lower lobe pneumonia. The right consolidation is slightly mass like and an underlying mass may be present.
== END 2019-06-05 08:01 | disposition home or self-care (01) ==
LOC: PET 08:00
PROVIDERS: ATTEND Internal Medicine Hematology & Oncology
DX: C34.81 Malignant neoplasm of overlapping sites of right bronchus and lung (principal)
CPT/HCPCS: 78815; A9552

== ENCOUNTER 2019-06-10 09:23 | Outpatient (CLI) | payer MEDICARE, BC ==
--- NOTE | 2019-06-10 10:30 | MRI ---
Exam: Brain MRI with and without contrast HISTORY: Lung cancer staging. Evaluate for intracranial metastases. COMPARISON: None FINDINGS: Gradient echo sequence: No hemorrhage Calvarium: Appropriate T1 marrow signal intensity Midline brain parenchyma: Unremarkable Cerebrum:No parenchymal mass, mass effect or midline shift. Age-appropriate atrophy. Cortical padilla-wh ite matter differentiation is preserved. T2 and FLAIR white matter hyperintensities due to chronic small vessel ischemic change. Ventricles: No evidence of hydrocephalus. Sinuses and mastoid air cells: Adequate aeration Diffusion: Central arterial flow is maintained. Absent restricted diffusion. Postcontrast images: No pathologic enhancement of the brain parenchyma. IMPRESSION: 1. Absent restricted diffusion. No acute infarct 2. No pathologic enhancement of the brain parenchyma.
[2019-06-10] MEDS ORDERED: Magnevist 469MG/ML 20 ML VIAL ONE (15:42)
== END 2019-06-10 09:24 | disposition home or self-care (01) ==
LOC: MRI 09:23
PROVIDERS: ATTEND Internal Medicine Hematology & Oncology
DX: C34.81 Malignant neoplasm of overlapping sites of right bronchus and lung (principal)
CPT/HCPCS: 70553; A9579

== ENCOUNTER 2019-06-26 05:18 | Inpatient (IN) | payer MEDICARE, BC, OTHER ==
[2019-06-26] MEDS ORDERED: Atropine Sulfate 1 mg/10 ml Syringe ONE (05:29)
[2019-06-26 05:42] LABS: #Eosinphils 0.1 thou/uL (0.0-0.7); #Lymphocytes 1.2 thou/uL (1.20-3.40); #Monocytes 0.8 thou/uL (0.11-0.59); #Neutrophils 9.7 thou/uL (1.40-6.50); %Basophils 0.1 % (0.0-1.0); %Lymphocytes 10.4 % (21.0-51.0); %Monocytes 6.5 % (0.0-10.0); Hemoglobin 13.8 g/dL (14.0-18.0); Mean Corpuscular HGB CONC 30.7 g/dL (32.0-36.0); Mean Corpuscular Hemoglobin 28.7 pg (27.0-31.0); Mean Corpuscular Volume 93.5 fL (78.0-98.0); Mean Platelet Volume 7.6 fL (7.4-10.4); Platelet Count 166 thou/uL (130-400); Red Blood Cell (RBC) Count 4.81 mill/uL (4.70-6.10); White Blood Cell (WBC) Count 11.8 thou/uL (4.8-10.8)
[2019-06-26 05:45] LABS: INR-International Normal Ratio 1.3; Prothrombin Time 16.3 SEC (12.0-14.7)
[2019-06-26 05:46] LABS: PTT 64.3 SEC (22.9-36.1)
[2019-06-26 05:48] LABS: Base Excess-Venous -4.5 mmol/L (-2.0 to 3.0); Bicarbonate (HCO3v) 28.6 mmol/L (22.0-28.0); CO2 Tension (PvCO2) 98.4 mmHg (40.0-50.0); Calcium, Ionized 1.15 mmol/L (See Comments:); Chloride 104 mmol/L (98-107); Hemoglobin - Calc 14.8 g/dL (14.0-18.0); Potassium 3.6 mmol/L (3.5-5.1); Sodium 139 mmol/L (138-145); T. Carbon Dioxide 31.6 mmol/L (22.0-28.0); vO2 Saturation-calc 62.7 % (60.0-85.0)
[2019-06-26 06:05] LABS: ALT (SGPT) 41 U/L (8-55); AST (SGOT) 45 U/L (5-34); Albumin 3.2 g/dL (3.4-4.8); Alkaline Phosphatase 80 U/L (40-110); Anion Gap 10 mmol/L (10-20); BUN (Urea Nitrogen) 28 mg/dL (8.4-25.7); Bilirubin, Total 0.3 mg/dL (0.2-1.2); Calc. Creatinine Clearance 0 mL/min (70-130); Calcium 7.6 mg/dL (7.8-10.44); Carbon Dioxide 29 mmol/L (23-31); Chloride 104 mmol/L (98-107); Estimated GFR-MDRD 40; Globulin 3.3 g/dL (2.4-3.5); Glucose 157 mg/dL (83-110); Potassium 3.5 mmol/L (3.5-5.1); Protein, Total 6.5 g/dL (5.8-8.1); Sodium 139 mmol/L (136-145)
[2019-06-26 06:15] LABS: Actual Bicarbonate (HCO3a) 21.8 mEq/L (22-28); Analyzer IN Cardio ER; Base Excess (BEa) -5.3 mEq/L (-2.0 to +3.0); CO2 Tension 48.7 mmHg (35.0-45.0); Carboxyhemoglobin (COHb) 0.3 gm% (0.0-3.0); Hemoglobin (Hb) 13.3 g/dL (14.0-18.0); O2 Tension (PaO2), arterial 84.1 mmHg (> 60.0); Potassium - ABG Lab 3.53 mmol/L (3.70-5.30); pH, Arterial 7.27 (7.35-7.45)
[2019-06-26] MEDS ORDERED: Norepinephrine 4 MG/4 ML VIAL ONE (06:21)
[2019-06-26 06:24] LABS: Bilirubin Negative (Negative); Blood, Urine Negative (Negative); Clarity Turbid (Clear); Glucose, Urine (Dipstick) 30 mg/dL (Negative); Leukocyte Negative Leu/uL (Negative); Nitrite Negative (Negative); Protein, Urine (Dipstick) 300 mg/dL (Neg-Trace); Squamous Epithelial 0-3 HPF (0-3); Urobilinogen Normal mg/dL (Less than 2); WBC/HPF Greater than 50 HPF (0-3)
[2019-06-26 06:29] LABS: ALV-art Gradient 568.025 (0-20); Puncture Site LRA
[2019-06-26 06:35] LABS: CKMB 2.2 ng/mL (0-6.6)
[2019-06-26 06:36] LABS: Renal Epithelial 0-3 HPF (None Seen)
[2019-06-26 06:37] LABS: Bacteria/HPF 1+ HPF (None Seen)
--- NOTE | 2019-06-26 07:11 | CT ---
CT BRAIN WITHOUT CONTRAST: Date: 06/26/2019 INDICATION: History of hypotension and unresponsive. COMPARISON: MRI of the brain with and without contrast dated 06/10/2019. FINDINGS: Generalized cerebral and cerebellar atrophy is similar appearing. The moderate chronic small vessel w jamil matter ischemic change is similar appearing. No definite acute infarct, hemorrhage, or hydroceph alus is present. There is some soft tissue swelling overlying the left frontal skull suspicious for m ild contusion. There is mucosal thickening within the ethmoid air cells. Mastoid air cells are clear. The patient is nasally intubated. IMPRESSION: 1. No acute intracranial abnormality. 2. Age-related atrophy and moderate chronic small vessel white matter ischemic change. 3. Mild paranasal sinus disease. 4. Left frontal scalp contusion. POS: [facility]
--- NOTE | 2019-06-26 07:14 | CT ---
CT CHEST WITHOUT CONTRAST: Date: 06/26/2019 INDICATION: History of hypotension with external pacing and severe pulmonary edema. COMPARISON: PA and lateral chest dated 06/04/2019. FINDINGS: There are prominent air space consolidations seen within both lower lobes as well as portions of the posterior right upper lobe. There is pulmonary vascular congestion with perihilar edema and interstit ial thickening. There is moderate cardiomegaly. There is post CABG change. There are small bilateral pleural effusions. The patient is intubated. The ET tube tip is seen within the distal trachea approx imately 1.2 cm above the level of the xochitl. A gastric catheter is seen within the gastric body. Vis ualized adrenal glands are unremarkable appearing. There is thoracolumbar scoliosis. There is diffuse osteopenia. There are bilateral anterior rib fractures involving the left anterolateral 4th-7th ribs and the right anterolateral 3rd-7th ribs. IMPRESSION: 1. Findings most consistent with moderate CHF. 2. There are patchy air space consolidations within both lower lobes, as well as portions of the pos terior right upper lobe which may reflect more confluent air space edema; however, findings are more suspicious for aspiration. 3. Bilateral anterior rib fractures, possibly related to resuscitation. POS: [facility]
--- NOTE | 2019-06-26 07:16 | RAD ---
SINGLE VIEW CHEST: Date: 06/26/2019 COMPARISON: 05/18/2019. HISTORY: Cardiac arrest. Unresponsive. History of lung cancer. FINDINGS: Single view of the chest shows an enlarged but stable cardiomediastinal silhouette. The patient is st atus post CABG. There is a moderate right pleural effusion. An adjacent infiltrate may also be presen t. Opacity in the left lung base may also represent either pulmonary edema or a left lower lobe infil trate. An endotracheal tube is seen with its tip above the xochitl. A NG tube extends off the inferior aspect of the film. IMPRESSION: Bilateral pleural effusions with adjacent atelectasis versus infiltrates. POS: [facility]
[2019-06-26] MEDS ORDERED: Norepinephrine 8 MG in Dextrose 5% in Water 242 ML IVPB PRN (12:09)
[2019-06-26] MEDS ORDERED: Propofol 1,000 MG/100 ML VIAL IV ONE ×2 (12:58→18:22)
--- NOTE | 2019-06-26 14:01 | HP ---
CHIEF COMPLAINT: Status post cardiac arrest. HISTORY OF PRESENT ILLNESS: The patient is an 83-year-old male with past medical history of diastolic CHF, coronary artery disease, hypertension, hyperlipidemia, bronchoalveolar carcinoma, and atrial fibrillation. The patient was recently diagnosed with bronchoalveolar carcinoma, stage IV and started his immunotherapy yesterday. He was transferred to the emergency department from home after sustaining a fall. EMS found the patient bradycardic, and en route, the patient sustained a cardiac arrest. CPR was performed with ROSC. The patient was intubated and given multiple doses of atropine, which led to some improvement in his bradycardia. Norepinephrine was started in the ER due to bradycardia and hypotension, and the patient was admitted to the intensive care unit. At this time, the patient is sedated and intubated. He is hypotensive on Levophed at 10, which increased to 20 with improvement in his blood pressure. REVIEW OF SYSTEMS: Unable to obtain due to intubation and sedation. PAST MEDICAL HISTORY: Atrial fibrillation; bronchoalveolar carcinoma, stage IV; diastolic CHF; hypertension; hyperlipidemia; and coronary artery disease, status post CABG. PAST SURGICAL HISTORY: Coronary artery bypass graft. SOCIAL HISTORY: The patient has a history of smoking. No alcohol or illicit drug use. ALLERGIES: NO KNOWN ALLERGIES. PHYSICAL EXAMINATION: Limited due to the patient being on sedation. LABORATORY DATA: Chest x-ray revealed findings suggestive of pulmonary edema. His BNP was 212. Creatinine level elevated at 1.6 with baseline of 0.78. ASSESSMENT: 1. Status post cardiac arrest. 2. Bradycardia. 3. Shock, likely septic. 4. Acute renal failure. 5. Acute respiratory failure with hypoxia. 6. Diastolic congestive heart failure. 7. Bronchoalveolar carcinoma. PLAN: The patient is currently in the intensive care unit. Continue ventilator management per Critical Care Team. IV antibiotics started empirically. Continue vasopressors and titrate to achieve MAP of greater than 60. Palliative Care consulted due to poor prognosis. Coronavirus test was obtained in the emergency department, and the results are currently pending. Job ID: [id number]
--- NOTE | 2019-06-26 14:51 | CON ---
DATE OF CONSULTATION: 06/26/2019 HISTORY OF PRESENT ILLNESS: An 83-year-old gentleman in the ICU, just recently discharged from the hospital with a diagnosis of bronchoalveolar metastatic carcinoma. X-ray shows no bilateral pleural effusions, right greater than left. He came in with altered mental status with CPR in progress. He had fallen at home in the kitchen, unresponsive per family members. Started on some new medication for his bilateral lung cancer. He was hypertensive. CPR was initiated intubated now with the vent. Extensive history is outlined recently. PAST MEDICAL HISTORY: Pertinent for, 1. Recent diagnosis of bronchoalveolar carcinoma. 2. History of coronary artery disease, severely depressed EF of about 30%-35%. Recent EF had improved a little bit. 3. Atrial fibrillation. 4. Hypertension. 5. Coronary artery disease. 6. High cholesterol. SOCIAL HISTORY: Former smoker. HOME MEDICATIONS: Includes, 1. Potassium. 2. Xalkori 1 capsule a day. 3. Omeprazole. 4. Losartan 100. 5. Ativan. 6. Lasix 80. 7. Lipitor. ALLERGIES: NONE. REVIEW OF SYSTEMS: Unobtainable, intubated in the vent, sedated mildly. PHYSICAL EXAMINATION: VITAL SIGNS: Pulse 60, blood pressure 87/80, saturations are 96% on a PEEP of 5 , 100% FiO2, rate at 20. CHEST: Bilateral rhonchi, crackles. CARDIAC: Normal S1 and S2. No gallops. ABDOMEN: No masses. LABORATORY DATA: White count of 11,000, H and H of , platelet count is 166. PO2 is 84, pCO2 is 54 ph 7.27 100%. Creatinine 1.65. His BNP is 212. ASSESSMENT: 1. Respiratory failure, extensive bilateral bronchopneumonia, metastatic cancer bronchoalveolar. 2. Hypertension, encephalopathy, mildly depressed ejection fraction, moderate aortic stenosis. 3. Fluid challenge, steroids, empiric antibiotics initiated. 4. Long-term prognosis is grave. We will notify Dr. Deras. Discussed with family long-term goals. Consultation note, 45 minutes critical care time. Job ID: [id number] MTDD
[2019-06-26] MEDS: methylPREDNISolone Sod Succ 40 MG VIAL IVP SCH (18:15)
--- NOTE | 2019-06-26 21:53 | PDOC.CNTRL ---
Central Line Procedure Note - PostProcedure Diagnosis: Femoral Central Line Procedure Note INDICATION: s/p cardiac arrest, need for pressors PROCEDURE RADIO RECORDER: Jerome Narayanan MD ATTENDING PHYSICIAN: Dr. Torsten Pepe In Attendance (Y)_ Ultrasound Used: Y CONSENT: Consent was obtained from patient's prior to the procedure. Indications, risks, and benefits were explained at length. PROCEDURE SUMMARY: A time out was performed. My hands were washed immediately prior to the procedure. I wore a surgical cap, mask with protective eyewear, sterile gown and sterile gloves throughout the procedure. The RIGHT inguinal region was prepped using chlorhexidine scrub and draped in sterile fashion using a full drape and sterile probe cover employed. The femoral pulse was identified. Anesthesia was achieved using 1% lidocaine. Palpating the femoral pulse throughout the procedure, the introducer needle was inserted medial to the femoral artery, inferior to the inguinal crease and into the femoral vein using US guidance throughout. Venous blood was withdrawn. The syringe was removed and a guidewire was advanced into the introducer needle. The guidewire was identified within the vein using the US. A small incision was made at the skin surface with a scalpel and the introducer needle was exchanged for a dilator over the guidewire. After appropriate dilation was obtained, the dilator was exchanged over the wire for a triple lumen central venous catheter. The wire was removed and the catheter was sutured in place at hub. A sterile sorbaview shield was placed over the catheter at the insertion site. The patient tolerated the procedure without any hemodynamic compromise. At time of procedure completion, all ports aspirated and flushed properly. Estimated blood loss is 15ml. - Description Procedure in Details: ATTENDING ADDENDUM: I was present for and supervised the entire procedure. No immediate complications noted. Nurse informed line was ready for use.
[2019-06-26] MEDS: Cefepime 1 GM in Sodium Chloride 0.9% 100 ML IVPB SCH (21:56)
[2019-06-27] MEDS ORDERED: Propofol BOLUS 1,000 MG/100 ML VIAL IV PRN (00:25)
[2019-06-27] MEDS: methylPREDNISolone Sod Succ 40 MG VIAL IVP SCH ×5 (00:27→23:37)
[2019-06-27] MEDS: Cefepime 1 GM in Sodium Chloride 0.9% 100 ML IVPB SCH ×2 (07:31→20:07)
[2019-06-27] MEDS: Propofol 1,000 MG/100 ML VIAL IV PRN ×2 (07:42→20:07)
--- NOTE | 2019-06-27 13:20 | EKG ---
Test Reason : Blood Pressure : / mmHG Vent. Rate : 064 BPM Atrial Rate : 057 BPM P-R Int : 000 ms QRS Dur : 132 ms QT Int : 392 ms P-R-T Axes : 000 -03 204 degrees QTc Int : 404 ms Atrial fibrillation with premature ventricular or aberrantly conducted complexes Non-specific intra-ventricular conduction block Inferior infarct , age undetermined Abnormal ECG Confirmed by ERIC RIDER ([id number]), tape editor BINH AYALA ([id number]) on 06/27/2019 1:19:55 PM Referred By: Confirmed By:ERIC Menon
--- NOTE | 2019-06-27 15:39 | PRG ---
DATE OF SERVICE: 06/27/2019 SUBJECTIVE: Miguel Chinchilla's events have been reviewed. I have also discussed him with his oncologist. within the last week. He has been waking up short of breath. I have explained to him that with his tumor, he secretes more tracheobronchial mucus and is probably mucus plugging during his sleep. He says consistently he has been waking up at about 1 or 1:30 short of breath. I suspect his event was similar, but he had syncope associated with this. I doubt this is a primary cardiac event. Apparently, he has improved and is now neurologically intact. OBJECTIVE: VITAL SIGNS: Heart rates in the 50s up to the 70s this afternoon. Blood pressure 98/56, respiratory rate . LUNGS: Unchanged. HEART: Unchanged. ABDOMEN: Unchanged. He has bibasilar crackles, he always has. Hematocrit is 44 today. CBC was done. Electrolytes were done. IMPRESSION: failure associated with bronchoalveolar carcinoma. He only had one dose of chemotherapy. I doubt this was a primary bradycardic arrest. I suspect that this is related to what he has been dealing with at night ever since he was diagnosed with bilateral lower lobe bronchoalveolar carcinoma. Prognosis is quite guarded. Critical care time is 35 minutes. Job ID: [id number] MTDD
--- NOTE | 2019-06-27 16:45 | PDOC.PALCO ---
Palliative Care Consult - Consult Details Requesting Physician: Dr Carrillo Reason for Consult: assistance with communication prognosis/disease, family support - Pertinent HPI 83 year old male with significant cardio vascular history and bronchalveolar carcinoma. Sustained a fall 06/26/2019 and EMS arrived at the home, patient was bradycardiac and transported to [facility]. En route had a cardiac arrest and was intubated, CPR with ROSC, admitted to CCU for medical management. Sedated and intubated, initial immunotherapy was given 06/26/2019. - Pertinent PMH Atrial Fib, Bronchoalveolar carcinoma, Diastolic HF, HTN, CAD - Social History Smoking Status: Current every day smoker Smoking: cigarettes Alcohol Use: none Drug Use History: none Living Situation: independent - Medications MAR Reviewed: Yes - Allergies Allergies/Adverse Reactions: Allergies Allergy/AdvReac Type Severity Reaction Status Date / Time No Known Allergies Allergy Verified 05/02/18 16:25 - Subjective Sedated and intubated/mechanical ventilation - ROS Non Response: due to endotracheal tube, due to mental status - Objective Vital Signs: Vital Signs - Most Recent Temp Pulse Resp BP Pulse Ox 98.0 F 74 20 122/62 94 L 06/27/19 15:00 06/27/19 14:30 06/27/19 14:29 06/27/19 14:30 06/27/19 14:29 Palliative Performance Scale: 20 - Advance Directives Medical Power of Pourer Buggy Ladle: Gabrielle [phone] - Physical Exam Constitutional: ill appearing HEENT: moist MMs Deviation from normal: mechanical ventiltaion Gastrointestinal: incontinent Genitourinary: cates catheter Musculoskeletal: no cyanosis, no clubbing Deviation from normal: sedated Skin: cap refill <2 seconds Deviation from normal: sedated - Problem List (1) Respiratory failure requiring intubation Code(s): J96.90 - RESPIRATORY FAILURE, UNSP, UNSP W HYPOXIA OR HYPERCAPNIA Current Visit: Yes Status: Acute (2) History of cardiac arrest Code(s): Z86.74 - PERSONAL HISTORY OF SUDDEN CARDIAC ARREST Current Visit: Yes Status: Acute (3) Bronchoalveolar carcinoma Code(s): C34.90 - MALIGNANT NEOPLASM OF UNSP PART OF UNSP BRONCHUS OR LUNG Current Visit: Yes Status: Acute (4) Palliative care encounter Code(s): Z51.5 - ENCOUNTER FOR PALLIATIVE CARE Current Visit: Yes Status: Acute (5) Diastolic heart failure Code(s): I50.30 - UNSPECIFIED DIASTOLIC (CONGESTIVE) HEART FAILURE Current Visit: Yes Status: Acute (6) Renal failure Current Visit: Yes Status: Acute - Plan/Recommendations Plan: Introduced Palliative Care to family. Patient currently a Covid 19 rule out. Family would like to continue with full resuscitative measures until the test is negative or positive, they if compassionate extubation is elected they would like to be present with Mr Chinchilla. Family understanding of poor prognosis, however desire to be with Mr Chinchilla when he is extubated. Palliative Care will continue to offer assistance with disease progression/complex decision making, emotional support and therapeutic listening. Please also refer to Leandro Cunningham RNplant protection officer notes in note section [50] minutes spent on this encounter with >50% of the time in counseling and coordination of care. Thank you for this very appropriate consult.
--- NOTE | 2019-06-27 19:51 | CON ---
DATE OF CONSULTATION: HISTORY: Miguel Chinchilla is a pleasant 83-year-old white male who underwent CABG x5 in 02/1988. I was following him at that time. He was then seen by Dr. Kamar Mary in 01/2015, and his ejection fraction was 30% to 35%.. He was placed on appropriate therapy. Repeat echocardiogram in 05/2015 revealed an ejection fraction had improved to 45% to 50%. I again saw him in 03/2018. He was complaining of dyspnea on exertion and cough. He would become short of breath with working in the yard , raking leaves, or with exertion. Furosemide had been started 2 months previously. He denied any chest discomfort. Echo at that time revealed ejection fraction of 40% to 45% with ifwyabpr-[id number] mitral regurgitation, moderate aortic stenosis, moderate aortic regurgitation. He had a cardiac PET scan, which revealed a fixed defect in the proximal lateral and proximal inferior gates. He underwent cardiac catheterization on 05/09/2018. He was found to have inferior akinesis with ejection fraction of 40% to 45%. Wedge pressure was 5. Cardiac output was 4.015. The aortic valve area was 2.63. It was felt that he had mild aortic stenosis. There was 30% left main, 80% and 60% proximal LAD and total occlusion of the mid LAD. There was a 60% 1st diagonal stenosis. The ramus was totally occluded. The mid circumflex was totally occluded. The proximal RCA was totally occluded. Bypass grafts revealed patent [place] to the LAD. There were patent grafts to the first diagonal, ramus, 2nd obtuse marginal, and right coronary artery. He continued to complain of shortness of breath and had rales on examination. He was placed on increasing diuretics. His symptoms never really improved. He was urged for many months to seek consultation with a color receiver. Finally in 04/2019, he was admitted and underwent a lung biopsy. This revealed adenocarcinoma with spread to the airspace. He has been placed on chemotherapy, which apparently induces bradycardia from discussions with Dr. Butler, Mr. Chinchilla was evaluated via telemedicine visit on 06/17/2019. His carvedilol dose was reduced from 25 mg b.i.d. to one-half of the 25 mg tablet b.i.d. He also started on hydralazine 50 mg b.i.d. He apparently received one dose of chemotherapy. He has been having increasing shortness of breath. He would wake up about 1 or 1:30 in the morning short of breath. He again had this happened; however, he had a syncopal episode associated with that. EMS was called, and apparently, he became bradycardic during transport and was intubated. Dr. Deras feels that this probably is not a primary bradycardic arrest, but is related to his pulmonary status. Currently, the patient is intubated and sedated. PAST MEDICAL HISTORY: 1. History of myocardial infarction. 2. Hypercholesterolemia. 3. Hypertension. 4. Coronary artery disease. 5. Mild aortic stenosis. 6. Moderate mitral regurgitation. OPERATIONS: 1. CABG. 2. Right lung biopsy. MEDICATIONS: 1. Carvedilol 25 mg one-half b.i.d. 2. Hydralazine 50 mg b.i.d. 3. Aspirin 325 daily. 4. Atorvastatin 10 nightly. 5. Xalkori one b.i.d. 6. Furosemide 40 daily and 40 at 3 p.m. 7. Ativan 0.5 b.i.d. and Ativan 1 mg at bedtime. 8. Losartan 100 b.i.d. 9. Omeprazole 20 daily. 10. Zofran p.r.n. 11. KCl 20 mEq daily. ALLERGIES: NONE. SOCIAL HISTORY: Smoked in the distant past. He does not drink. FAMILY HISTORY: Father and brother had myocardial infarction. REVIEW OF SYSTEMS: Unobtainable with the patient being intubated. PHYSICAL EXAMINATION: VITAL SIGNS: Blood pressure 122/61 and pulse of 64, in atrial fibrillation ( this developed during this hospitalization in April and May). HEENT: PERRL. NECK: Supple. CHEST: Crackles at the bases. CARDIOVASCULAR: S1 and S2 are normal without any S3 or S4. There is a 1/6 to 2 /6 systolic ejection murmur. ABDOMEN: Normal bowel sounds without tenderness. EXTREMITIES: No edema. NEUROLOGIC: The patient is sedated. LABORATORY DATA: EKG is not present on the chart. Hemoglobin 13.8, hematocrit 45.0, white count 11,800, and platelets 166,000. INR 1.3. Sodium 139, potassium 3.4, chloride 104, carbon dioxide 29, BUN 28, and creatinine 1.65. Troponin I 0.031. BNP 212.5. IMPRESSION: 1. 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 2. Apparently an episode of bradycardia, which may have been induced by his respiratory failure. His dose of carvedilol recently was reduced in half, and apparently his chemotherapeutic agent also induces bradycardia. 3. Atrial fibrillation, new onset of last admission. The patient was not anticoagulated due to his other health problems. 4. Status post coronary artery bypass graft x5 with grafts patent in 04/2018. 5. [id number] myocardial infarction, type 2. 6. History of systolic and diastolic heart failure. 7. Mild aortic stenosis. 8. Hypercholesterolemia. 9. Hypertension. 10. Former smoker. 11. Bilateral adenocarcinoma of the lung. PLAN: Currently, his carvedilol will be held and probably at some time will need to be gradually resumed at a lower dose. I do not feel that pacemaker therapy is warranted. His long-term prognosis is extremely poor. Job ID: [id number] MTDD
--- NOTE | 2019-06-27 20:39 | PDOC.HOSPP ---
- Subjective Encounter Date: 06/27/19 non-verbal Subjective: . Remains intubated. Follows commands when off sedation. Vasopressors have been weaned off. - Objective Vital Signs & Weight: Vital Signs (12 hours) Temp Pulse Resp BP Pulse Ox 06/27/19 20:00 24 H 94 L 06/27/19 19:17 64 20 94 L 06/27/19 19:15 58 L 06/27/19 19:00 98.6 F 06/27/19 18:00 20 06/27/19 16:00 23 H 06/27/19 15:00 98.0 F 06/27/19 14:30 74 122/62 06/27/19 14:29 62 20 94 L 06/27/19 14:00 23 H 06/27/19 13:00 98.0 F 06/27/19 12:00 20 06/27/19 10:36 73 98/56 L 06/27/19 10:35 56 L 20 96 06/27/19 10:00 20 Weight Admit Weight 145 lb Weight 194 lb 3.636 oz Most Recent Monitor Data Heart Rate from ECG 71 NIBP 118/60 NIBP BP-Mean 79 Respiration from ECG 24 SpO2 92 I&O: 06/26/19 06/27/19 06/28/19 06:59 06:59 06:59 Intake Total 1184 350.2 Output Total 1480 1925 Balance -296 -1574.8 Result Diagrams: 06/26/19 05:26 06/26/19 05:26 Hospitalist ROS - Medication Medications: Active Medications Generic Name Dose Route Start Last Admin Trade Name Freq PRN Reason Stop Dose Admin Albuterol/Ipratropium 3 ml 06/26/19 14:30 06/27/19 19:17 Duoneb NEB 3 ml [id number] SURYA Administration Norepinephrine Bitartrate 8 mg 250 mls @ 0 mls/hr 06/26/19 12:09 06/26/19 12: 37 / Dextrose/Water IVPB 250 mls INF PRN Administration TO MAINTAIN MAP > 65 Protocol As Directed Cefepime HCl 1 gm/ Sodium 100 mls @ 200 mls/hr 06/26/19 21:00 06/27/19 20:07 Chloride IVPB 100 mls Q12HR SURYA Administration Methylprednisolone Sodium Succinate 40 mg 06/26/19 18:00 06/27/19 17:18 Solu-Medrol IVP 40 mg Q6HR SURYA Administration Propofol 1,000 mg 06/27/19 00:25 06/27/19 20:07 Diprivan IV 07/27/19 00:25 1,000 mg INF PRN Administration TO ACHIEVE GOAL RASS Protocol Hosp A/P (1) Respiratory failure requiring intubation Code(s): J96.90 - RESPIRATORY FAILURE, UNSP, UNSP W HYPOXIA OR HYPERCAPNIA Status: Acute (2) Bronchoalveolar carcinoma Code(s): C34.90 - MALIGNANT NEOPLASM OF UNSP PART OF UNSP BRONCHUS OR LUNG Status: Acute (3) Afib Code(s): I48.91 - UNSPECIFIED ATRIAL FIBRILLATION Status: Acute (4) Bradycardia Code(s): R00.1 - BRADYCARDIA, UNSPECIFIED Status: Acute (5) History of cardiac arrest Code(s): Z86.74 - PERSONAL HISTORY OF SUDDEN CARDIAC ARREST Status: Acute - Plan The patient remains intubated after cardiac arrest prior to presentation. Bradycardia resolved. Vasopressors weaned off. Coronavirus test results remain pending. See possible septic shock related to postobstructive pneumonia. Continue antibiotics. Poor prognosis. Palliative on board.
[2019-06-28] MEDS: Propofol 1,000 MG/100 ML VIAL IV PRN ×3 (04:03→23:00)
[2019-06-28] MEDS: methylPREDNISolone Sod Succ 40 MG VIAL IVP SCH ×4 (05:48→21:37)
[2019-06-28] MEDS: Cefepime 1 GM in Sodium Chloride 0.9% 100 ML IVPB SCH ×2 (08:18→20:11)
[2019-06-28] MEDS ORDERED: Fentanyl BOLUS 250 ML IVPB PRN (12:15)
[2019-06-28] MEDS ORDERED: Morphine 2 MG/ML SYRINGE SLOW IVP PRN (12:15)
[2019-06-28] MEDS ORDERED: fentaNYL Citrate/PF 2,000 MCG in Sodium Chloride 0.9% 60 ML IV SCH (12:15)
[2019-06-28] MEDS ORDERED: Propofol 1,000 MG/100 ML VIAL IV PRN (12:15)
[2019-06-28] MEDS ORDERED: Lorazepam 2 MG/ML VIAL SLOW IVP PRN (12:15)
[2019-06-28] MEDS ORDERED: DISCONTINUE PREVIOUS NARCOTIC PAIN MEDICATIONS AND BENZODIAZEPINES FS SCH (12:15)
[2019-06-28] MEDS ORDERED: Propofol BOLUS 1,000 MG/100 ML VIAL IV PRN (12:15)
--- NOTE | 2019-06-28 13:00 | PRG ---
DATE OF SERVICE: 06/28/2019 SUBJECTIVE: Joselo awakens. He follows commands. He very quickly gave me a thumbs up. OBJECTIVE: GENERAL: He is in no distress. LUNGS: Remarkable for crackles at his bases. HEART: Regular rhythm. ABDOMEN: Soft. EXTREMITIES: Without asymmetry or edema. NEURO: Nonfocal. LABORATORY DATA: No new lab today. IMPRESSION: Respiratory failure associated with hypoxemia secondary to advanced bronchoalveolar carcinoma. I do not feel he has pneumonia. I think we are dealing with his slow and steady decline of his malignant process. We will continue with supportive care. Hopefully, we can wean him tomorrow, but we have to make decisions about re-intubation etc., before we extubate him. Critical care time 35 min. Job ID: [id number] MTDD
--- NOTE | 2019-06-28 14:23 | PDOC.HOSPP ---
- Subjective Encounter Date: 06/28/19 Encounter Time: 12:00 Subjective: on vent, is awake and responds well to simple verbal stimuli - Objective Vital Signs & Weight: Vital Signs (12 hours) Temp Pulse Resp BP Pulse Ox 06/28/19 11:05 72 121/57 L 06/28/19 10:58 67 24 H 93 L 06/28/19 08:00 99.2 F 18 06/28/19 07:55 57 L 111/62 06/28/19 07:52 57 L 18 95 06/28/19 06:00 20 06/28/19 04:00 98.4 F 20 06/28/19 03:10 75 Weight Admit Weight 145 lb Weight 188 lb 14.978 oz Most Recent Monitor Data Heart Rate from ECG 64 NIBP 92/53 NIBP BP-Mean 66 Respiration from ECG 23 SpO2 91 I&O: 06/27/19 06/28/19 06/29/19 06:59 06:59 06:59 Intake Total 1184 573.0 Output Total 1480 2785 110 Balance -296 -2212.0 -110 Result Diagrams: 06/26/19 05:26 06/26/19 05:26 Hospitalist ROS - Medication Medications: Active Medications Generic Name Dose Route Start Last Admin Trade Name Freq PRN Reason Stop Dose Admin Albuterol/Ipratropium 3 ml 06/26/19 14:30 06/28/19 10:58 Duoneb NEB 3 ml [id number] SURYA Administration Norepinephrine Bitartrate 8 mg 250 mls @ 0 mls/hr 06/26/19 12:09 06/26/19 12: 37 / Dextrose/Water IVPB 250 mls INF PRN Administration TO MAINTAIN MAP > 65 Protocol As Directed Cefepime HCl 1 gm/ Sodium 100 mls @ 200 mls/hr 06/26/19 21:00 06/28/19 08:18 Chloride IVPB 100 mls Q12HR SURYA Administration Fentanyl Citrate 2,000 mcg/ 100 mls @ 0 mls/hr 06/28/19 12:15 06/28/19 12:24 Sodium Chloride IV 07/28/19 12:15 100 mls INF SURYA Administration Protocol Per Protocol Methylprednisolone Sodium Succinate 40 mg 06/28/19 14:00 06/28/19 14:02 Solu-Medrol IVP Not Given Q8HR SURYA Propofol 1,000 mg 06/27/19 00:25 06/28/19 14:01 Diprivan IV 07/27/19 00:25 1,000 mg INF PRN Administration TO ACHIEVE GOAL RASS Protocol - Exam General Appearance: awake alert Eye: PERRL, anicteric sclera ENT: no oropharyngeal lesions, moist mucosa Neck: supple, no JVD Heart: RRR, no murmur Respiratory: no wheezes, no rales, rhonchi Gastrointestinal: soft, non-tender, non-distended, normal bowel sounds Extremities: no cyanosis, no edema Neurological: cranial nerve grossly intact, no focal deficits Hosp A/P (1) Acute respiratory failure with hypoxia Code(s): J96.01 - ACUTE RESPIRATORY FAILURE WITH HYPOXIA Status: Acute (2) type 2 nstemi Status: Acute (3) Moderate mitral regurgitation Code(s): I34.0 - NONRHEUMATIC MITRAL (VALVE) INSUFFICIENCY Status: Chronic (4) LEDY (acute kidney injury) Code(s): N17.9 - ACUTE KIDNEY FAILURE, UNSPECIFIED Status: Acute (5) Afib Code(s): I48.91 - UNSPECIFIED ATRIAL FIBRILLATION Status: Chronic Qualifiers: Atrial fibrillation type: paroxysmal Qualified Code(s): I48.0 - Paroxysmal atrial fibrillation (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 - MALIGNANT NEOPLASM OF UNSP PART OF UNSP BRONCHUS OR LUNG Status: Chronic (7) Diastolic heart failure Code(s): I50.30 - UNSPECIFIED DIASTOLIC (CONGESTIVE) HEART FAILURE Status: Acute Qualifiers: Heart failure chronicity: acute on chronic Qualified Code(s): I50.33 - Acute on chronic diastolic (congestive) heart failure (8) History of cardiac arrest Code(s): Z86.74 - PERSONAL HISTORY OF SUDDEN CARDIAC ARREST Status: Acute (9) Coronary artery disease Code(s): I25.10 - ATHSCL HEART DISEASE OF [place] CORONARY ARTERY W/O ANG PCTRS Status: Chronic Qualifiers: Coronary Disease-Associated Artery/Lesion type: bypass graft [place] vs. transplanted heart: [place] heart (10) Dyslipidemia Code(s): E78.5 - HYPERLIPIDEMIA, UNSPECIFIED Status: Chronic (11) GERD (gastroesophageal reflux disease) Code(s): K21.9 - GASTRO-ESOPHAGEAL REFLUX DISEASE WITHOUT ESOPHAGITIS Status: Chronic (12) Hypertension Code(s): I10 - ESSENTIAL (PRIMARY) HYPERTENSION Status: Chronic Qualifiers: Hypertension type: essential hypertension Qualified Code(s): I10 - Essential (primary) hypertension - Plan is on cefepime, solumedrol, nebs, protonix, lovenox weaning per pulm advice has h/o lung cancer likely stage 4?, prognosis guarded
--- NOTE | 2019-06-28 17:46 | CON ---
DATE OF CONSULTATION: REASON FOR CONSULTATION: Lung cancer. HISTORY OF PRESENT ILLNESS: An 83-year-old male with adenocarcinoma of the lung with bilateral pulmonary metastatic disease, very recently started on an oral targeted therapy, crizotinib for a ROS1 mutation, extensive cardiovascular disease status post CABG in the past, atrial fibrillation, and heart failure, presenting to the hospital after a fall at home. While being transported by EMS, he sustained a cardiac arrest, requiring CPR with ROSC and intubation. The patient is currently admitted to the ICU and is sedated. The patient was placed on Levophed, which is currently on hold. Plan is to extubate him tomorrow. Palliative Care has spoken to him and the family and decision is being made whether to make the patient a DNR prior to his extubation potentially tomorrow. REVIEW OF SYSTEMS: Unable to be obtained due to intubation and sedation. PAST MEDICAL HISTORY: 1. Stage IV lung cancer. 2. CHF. 3. CAD. 4. AFib. 5. Hypertension. 6. Hyperlipidemia. PAST SURGICAL HISTORY: CABG. SOCIAL HISTORY: Smoking. No alcohol. ALLERGIES: NO KNOWN DRUG ALLERGIES. CURRENT MEDICATIONS: Reviewed. PHYSICAL EXAMINATION: VITAL SIGNS: Pulse 53, blood pressure 91/53, and saturations 93% on mechanical ventilation. GENERAL: The patient is lying in bed, sedated. HEENT: Normocephalic and atraumatic. ET tube has been in place. LUNGS: Respirations nonlabored on mechanical ventilation. CARDIAC: Bradycardia is noted. NEUROLOGIC: Unable to perform exam; however, the patient does not respond to voice, though he is sedated. LABORATORY DATA: White blood cells 11.8, hemoglobin 13.8, and platelets 166. Sodium 139, potassium 3.6, BUN 28, and creatinine 1.65. BNP 212.5. COVID-19 negative. ASSESSMENT AND PLAN: An 83-year-old male with stage IV lung cancer with bilateral pulmonary mets and extensive cardiac history, presenting to the hospital with cardiac arrest, currently intubated and sedated. The patient is planned to be potentially extubated tomorrow. The patient's cause of cardiac arrest is not entirely clear at this time. The patient was recently started on crizotinib only a few days; however, this is less likely the cause as he did not appear to have any significant arrhythmias. Crizotinib has a good response rate for ROS1 positive lung cancer and the patient could have a good response if he is to continue on this medicine; however, he would need to be extubated and clinically improved. Otherwise, comfort care may be the best option for him. We will continue to follow him with you and hopefully he can be extubated tomorrow. Job ID: [id number]
[2019-06-28] MEDS: guaiFENesin ER 600 MG TAB PO SCH (20:11)
[2019-06-29 05:17] LABS: Anion Gap 11 mmol/L (10-20); BUN (Urea Nitrogen) 47 mg/dL (8.4-25.7); Calc. Creatinine Clearance 60 mL/min (70-130); Calcium 9.4 mg/dL (7.8-10.44); Carbon Dioxide 28 mmol/L (23-31); Chloride 107 mmol/L (98-107); Estimated GFR-MDRD 60; Glucose 152 mg/dL (83-110); Potassium 3.4 mmol/L (3.5-5.1); Sodium 143 mmol/L (136-145)
[2019-06-29 06:04] LABS: Band 20 % (5-11); Hemoglobin 11.2 g/dL (14.0-18.0); Lymphocytes 8 % (21-51); MDiff Complete? YES; Mean Corpuscular HGB CONC 33.5 g/dL (32.0-36.0); Mean Corpuscular Hemoglobin 29.8 pg (27.0-31.0); Mean Corpuscular Volume 88.8 fL (78.0-98.0); Mean Platelet Volume 7.9 fL (7.4-10.4); Monocytes 2 % (0-10); Neutrophil 70 % (42-75); Platelet Count 137 thou/uL (130-400); RBC Distribution Width 13.2 % (11.5-14.5); Red Blood Cell (RBC) Count 3.77 mill/uL (4.70-6.10); White Blood Cell (WBC) Count 12.8 thou/uL (4.8-10.8)
[2019-06-29] MEDS: methylPREDNISolone Sod Succ 40 MG VIAL IVP SCH ×3 (06:18→20:57)
[2019-06-29] MEDS: Propofol 1,000 MG/100 ML VIAL IV PRN (07:26)
--- NOTE | 2019-06-29 07:52 | RAD ---
SINGLE VIEW CHEST: Date: 06/29/2019 COMPARISON: 06/26/2019. HISTORY: Ventilated patient with respiratory failure. FINDINGS: Single view of the chest shows a normal sized cardiomediastinal silhouette. The patient is status pos t CABG. Increased interstitial lung markings are present. There appeared to be air space opacity in t he right lower lobe on the prior exam. This has slightly improved. There may be small bilateral pleur al effusions. IMPRESSION: Slight improvement in right lower lobe infiltrates. POS: [facility]
[2019-06-29] MEDS: Cefepime 1 GM in Sodium Chloride 0.9% 100 ML IVPB SCH ×2 (08:46→20:56)
[2019-06-29] MEDS: guaiFENesin ER 600 MG TAB PO SCH ×2 (08:46→20:54)
[2019-06-29] MEDS: Enoxaparin Sodium 40 MG/0.4 ML SYRINGE SC SCH (08:46)
[2019-06-29] MEDS ORDERED: Enoxaparin Sodium 30 MG/0.3 ML SYRINGE SC SCH (09:00)
--- NOTE | 2019-06-29 11:07 | PDOC.HOSPP ---
- Subjective Encounter Date: 06/29/19 Encounter Time: 09:00 Subjective: on vent, awakens easily, follows verbal stimuli with moving his hands and fingers. - Objective Vital Signs & Weight: Vital Signs (12 hours) Temp Pulse Resp BP Pulse Ox 06/29/19 10:57 82 22 H 94 L 06/29/19 10:56 72 26 H 92 L 06/29/19 10:00 17 06/29/19 08:00 97.4 F L 19 96 06/29/19 07:03 53 L 112/62 06/29/19 07:02 64 21 H 93 L 06/29/19 06:00 17 06/29/19 04:00 98.0 F 17 06/29/19 02:34 56 L 19 93 L 06/29/19 02:32 57 L 06/29/19 02:00 19 06/29/19 00:24 59 L 06/29/19 00:00 98.3 F 20 Weight Admit Weight 145 lb Weight 190 lb 0.615 oz Most Recent Monitor Data Heart Rate from ECG 82 NIBP 109/68 NIBP BP-Mean 81 Respiration from ECG 22 SpO2 92 I&O: 06/28/19 06/29/19 06/30/19 06:59 06:59 06:59 Intake Total 573.0 968.2 110 Output Total 2785 975 220 Balance -2212.0 -6.8 -110 Result Diagrams: 06/29/19 04:30 06/29/19 04:30 Hospitalist ROS - Medication Medications: Active Medications Generic Name Dose Route Start Last Admin Trade Name Freq PRN Reason Stop Dose Admin Albuterol/Ipratropium 3 ml 06/26/19 14:30 06/29/19 10:57 Duoneb NEB 3 ml [id number] SURYA Administration Enoxaparin Sodium 40 mg 06/29/19 09:00 06/29/19 08:46 Lovenox SC 40 mg 0900 SURYA Administration Guaifenesin 600 mg 06/28/19 21:00 06/29/19 08:46 Mucinex PO 600 mg Q12HR SURYA Administration Norepinephrine Bitartrate 8 mg 250 mls @ 0 mls/hr 06/26/19 12:09 06/26/19 12: 37 / Dextrose/Water IVPB 250 mls INF PRN Administration TO MAINTAIN MAP > 65 Protocol As Directed Cefepime HCl 1 gm/ Sodium 100 mls @ 200 mls/hr 06/26/19 21:00 06/29/19 08:46 Chloride IVPB 100 mls Q12HR SURYA Administration Fentanyl Citrate 2,000 mcg/ 100 mls @ 0 mls/hr 06/28/19 12:15 06/28/19 12:24 Sodium Chloride IV 07/28/19 12:15 100 mls INF SURYA Administration Protocol Per Protocol Methylprednisolone Sodium Succinate 40 mg 06/28/19 14:00 06/29/19 06:18 Solu-Medrol IVP 40 mg Q8HR SURYA Administration Pantoprazole Sodium 40 mg 06/29/19 09:00 06/29/19 08:46 Protonix PO 40 mg DAILY SURYA Administration Propofol 1,000 mg 06/27/19 00:25 06/29/19 07:26 Diprivan IV 07/27/19 00:25 1,000 mg INF PRN Administration TO ACHIEVE GOAL RASS Protocol - Exam General Appearance: awake alert Eye: PERRL, anicteric sclera ENT: no oropharyngeal lesions, moist mucosa Neck: supple, no JVD Heart: RRR, no murmur Respiratory: no wheezes, no rales Gastrointestinal: soft, non-tender, non-distended, normal bowel sounds Extremities: no cyanosis, no edema Neurological: cranial nerve grossly intact, no focal deficits Hosp A/P (1) Acute respiratory failure with hypoxia Code(s): J96.01 - ACUTE RESPIRATORY FAILURE WITH HYPOXIA Status: Acute (2) type 2 nstemi Status: Acute (3) Moderate mitral regurgitation Code(s): I34.0 - NONRHEUMATIC MITRAL (VALVE) INSUFFICIENCY Status: Chronic (4) LEDY (acute kidney injury) Code(s): N17.9 - ACUTE KIDNEY FAILURE, UNSPECIFIED Status: Acute (5) Afib Code(s): I48.91 - UNSPECIFIED ATRIAL FIBRILLATION Status: Chronic Qualifiers: Atrial fibrillation type: paroxysmal Qualified Code(s): I48.0 - Paroxysmal atrial fibrillation (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 - MALIGNANT NEOPLASM OF UNSP PART OF UNSP BRONCHUS OR LUNG Status: Chronic (7) Diastolic heart failure Code(s): I50.30 - UNSPECIFIED DIASTOLIC (CONGESTIVE) HEART FAILURE Status: Acute Qualifiers: Heart failure chronicity: acute on chronic Qualified Code(s): I50.33 - Acute on chronic diastolic (congestive) heart failure (8) History of cardiac arrest Code(s): Z86.74 - PERSONAL HISTORY OF SUDDEN CARDIAC ARREST Status: Acute (9) Coronary artery disease Code(s): I25.10 - ATHSCL HEART DISEASE OF [place] CORONARY ARTERY W/O ANG PCTRS Status: Chronic Qualifiers: Coronary Disease-Associated Artery/Lesion type: bypass graft [place] vs. transplanted heart: [place] heart (10) Dyslipidemia Code(s): E78.5 - HYPERLIPIDEMIA, UNSPECIFIED Status: Chronic (11) GERD (gastroesophageal reflux disease) Code(s): K21.9 - GASTRO-ESOPHAGEAL REFLUX DISEASE WITHOUT ESOPHAGITIS Status: Chronic (12) Hypertension Code(s): I10 - ESSENTIAL (PRIMARY) HYPERTENSION Status: Chronic Qualifiers: Hypertension type: essential hypertension Qualified Code(s): I10 - Essential (primary) hypertension - Plan is on cefepime, solumedrol, nebs, protonix, lovenox weaning per pulm advice, might get extubated today if he weans well. has h/o lung cancer likely stage 4?, prognosis guarded hemostable
[2019-06-29] MEDS: ALPRAZolam 0.25 MG TAB PO PRN ×2 (13:08→20:54)
--- NOTE | 2019-06-29 16:25 | PRG ---
DATE OF SERVICE: 06/29/2019 SUBJECTIVE: Joselo Chinchilla quickly reached out and shook my hand this morning. He had an excellent hat trimmer. OBJECTIVE: GENERAL: He is in no distress. HEAD AND NECK: Unchanged. LUNGS: Unchanged. HEART: Regular rhythm. ABDOMEN: Soft and nontender. EXTREMITIES: Without edema. LABORATORY DATA: White count 12.8, hemoglobin 11.2, and platelets 137. Sodium 143, potassium 3.4, chloride 107, bicarb 28, BUN 47, and creatinine 1.16. IMPRESSION: 1. Status post being found down at home, most likely secondary to severe hypoxemia, combined with intravascular volume depletion. 2. Status post mechanical ventilation. Neurologically intact. I felt he was a candidate for extubation. This has been done successfully. 3. Acute on chronic kidney disease, most likely secondary to intravascular volume depletion. Overall, he is clinically improved. We will keep him in the ICU one more day and then we will transfer him out. Discussion with family needs to be entertained regarding end of life issues. This is best done via the oncologist underlying malignancy. Critical care time is 35 minutes. Job ID: [id number] MTDD
[2019-06-30] MEDS: ALPRAZolam 0.25 MG TAB PO PRN ×4 (02:52→23:31)
[2019-06-30 04:22] LABS: Anion Gap 13 mmol/L (10-20); BUN (Urea Nitrogen) 46 mg/dL (8.4-25.7); Calc. Creatinine Clearance 72 mL/min (70-130); Calcium 9.7 mg/dL (7.8-10.44); Carbon Dioxide 27 mmol/L (23-31); Chloride 106 mmol/L (98-107); Estimated GFR-MDRD 74; Glucose 112 mg/dL (83-110); Potassium 3.8 mmol/L (3.5-5.1); Sodium 142 mmol/L (136-145)
[2019-06-30 04:30] LABS: Band 10 % (5-11); Hemoglobin 12.1 g/dL (14.0-18.0); Lymphocytes 3 % (21-51); MDiff Complete? YES; Mean Corpuscular HGB CONC 32.2 g/dL (32.0-36.0); Mean Corpuscular Hemoglobin 29.2 pg (27.0-31.0); Mean Corpuscular Volume 90.5 fL (78.0-98.0); Mean Platelet Volume 7.8 fL (7.4-10.4); Monocytes 6 % (0-10); Neutrophil 81 % (42-75); Platelet Count 135 thou/uL (130-400); RBC Distribution Width 13.1 % (11.5-14.5); Red Blood Cell (RBC) Count 4.14 mill/uL (4.70-6.10)
[2019-06-30] MEDS: methylPREDNISolone Sod Succ 40 MG VIAL IVP SCH ×3 (05:44→20:50)
[2019-06-30] MEDS: guaiFENesin ER 600 MG TAB PO SCH ×2 (08:30→19:34)
[2019-06-30] MEDS: Enoxaparin Sodium 40 MG/0.4 ML SYRINGE SC SCH (08:32)
[2019-06-30] MEDS: Cefepime 1 GM in Sodium Chloride 0.9% 100 ML IVPB SCH ×2 (08:32→20:51)
--- NOTE | 2019-06-30 09:17 | RAD ---
PORTABLE CHEST 1 VIEW: Date: 06/30/2019 Time: 0453 hours HISTORY: Respiratory distress. COMPARISON: Previous day. FINDINGS/IMPRESSION: There has been interval removal of the endotracheal and nasogastric tubes. Changes of median sternoto my are again seen. The heart size is stable. The aorta is tortuous. There is pulmonary vascular conge stion and bilateral pleural effusions with opacities in the lower and mid lung mc[place]. No pneumothora debbi are seen. POS: [facility]
--- NOTE | 2019-06-30 12:11 | PRG ---
DATE OF SERVICE: SUBJECTIVE: Miguel Chinchilla is in good mood today. He is in no distress. Heart rate is 90, blood pressure is 167/98, respiratory rates in the 20s. He does not recall any events leading up to his admission. He says he was sleeping in a chair with his head on a pillow on the table and says he finds this comfortable and then woke up in the hospital. He did take Ativan plus another sedative drug, he says that he received from his oncologist. He does not know the name of that medicine. It is certainly possible that he could have become hypersomnolent with 2 sedating drugs taken at the same time. OBJECTIVE: LUNGS: Unchanged. HEART: Unchanged. ABDOMEN: Unchanged. LABORATORY DATA: White count 13, hemoglobin 12.1, platelets 135. Electrolytes are normal. BUN 46, creatinine 0.97. IMPRESSION: Bronchoalveolar carcinoma. He is stable to transfer to Oncology in my opinion. Job ID: [id number]
--- NOTE | 2019-06-30 12:19 | PDOC.HOSPP ---
- Subjective Encounter Date: 06/30/19 Encounter Time: 11:00 Subjective: got extubated yesterday is sitting in bed, responds well to verbal stimuli - Objective Vital Signs & Weight: Vital Signs (12 hours) Temp Pulse Resp Pulse Ox 06/30/19 10:34 89 29 H 91 L 06/30/19 08:00 87 L 06/30/19 07:20 89 L 06/30/19 07:17 76 24 H 89 L 06/30/19 07:00 98.0 F 06/30/19 04:00 97.5 F L 06/30/19 02:57 85 16 89 L 06/30/19 00:25 88 L Weight Admit Weight 145 lb Weight 185 lb 3.013 oz Most Recent Monitor Data Heart Rate from ECG 90 NIBP 167/98 NIBP BP-Mean 121 Respiration from ECG 26 SpO2 90 I&O: 06/29/19 06/30/19 07/01/19 06:59 06:59 06:59 Intake Total 968.2 1088.3 340 Output Total 975 1400 110 Balance -6.8 -311.7 230 Result Diagrams: 06/30/19 03:45 06/30/19 03:45 Hospitalist ROS - Medication Medications: Active Medications Generic Name Dose Route Start Last Admin Trade Name Freq PRN Reason Stop Dose Admin Albuterol/Ipratropium 3 ml 06/26/19 14:30 06/30/19 10:34 Duoneb NEB 3 ml [id number] SURYA Administration Alprazolam 0.25 mg 06/29/19 12:54 06/30/19 08:30 Xanax PO 0.25 mg Q6H PRN Administration Anxiety Enoxaparin Sodium 40 mg 06/29/19 09:00 06/30/19 08:32 Lovenox SC 40 mg 0900 SURYA Administration Guaifenesin 600 mg 06/28/19 21:00 06/30/19 08:30 Mucinex PO 600 mg Q12HR SURYA Administration Norepinephrine Bitartrate 8 mg 250 mls @ 0 mls/hr 06/26/19 12:09 06/26/19 12: 37 / Dextrose/Water IVPB 250 mls INF PRN Administration TO MAINTAIN MAP > 65 Protocol As Directed Cefepime HCl 1 gm/ Sodium 100 mls @ 200 mls/hr 06/26/19 21:00 06/30/19 08:32 Chloride IVPB 100 mls Q12HR SURYA Administration Methylprednisolone Sodium Succinate 40 mg 06/28/19 14:00 06/30/19 05:44 Solu-Medrol IVP 40 mg Q8HR SURYA Administration Pantoprazole Sodium 40 mg 06/29/19 09:00 06/30/19 08:28 Protonix PO 40 mg DAILY SURYA Administration - Exam General Appearance: awake alert Eye: PERRL, anicteric sclera ENT: no oropharyngeal lesions, moist mucosa Neck: supple, no JVD Heart: RRR, no murmur Respiratory: no wheezes, rales, rhonchi Gastrointestinal: soft, non-tender, non-distended, normal bowel sounds Extremities: no cyanosis, no edema Neurological: cranial nerve grossly intact, no focal deficits Hosp A/P (1) Acute respiratory failure with hypoxia Code(s): J96.01 - ACUTE RESPIRATORY FAILURE WITH HYPOXIA Status: Acute (2) type 2 nstemi Status: Acute (3) Moderate mitral regurgitation Code(s): I34.0 - NONRHEUMATIC MITRAL (VALVE) INSUFFICIENCY Status: Chronic (4) LEDY (acute kidney injury) Code(s): N17.9 - ACUTE KIDNEY FAILURE, UNSPECIFIED Status: Acute (5) Afib Code(s): I48.91 - UNSPECIFIED ATRIAL FIBRILLATION Status: Chronic Qualifiers: Atrial fibrillation type: paroxysmal Qualified Code(s): I48.0 - Paroxysmal atrial fibrillation (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 - MALIGNANT NEOPLASM OF UNSP PART OF UNSP BRONCHUS OR LUNG Status: Chronic (7) Diastolic heart failure Code(s): I50.30 - UNSPECIFIED DIASTOLIC (CONGESTIVE) HEART FAILURE Status: Acute Qualifiers: Heart failure chronicity: acute on chronic Qualified Code(s): I50.33 - Acute on chronic diastolic (congestive) heart failure (8) History of cardiac arrest Code(s): Z86.74 - PERSONAL HISTORY OF SUDDEN CARDIAC ARREST Status: Acute (9) Coronary artery disease Code(s): I25.10 - ATHSCL HEART DISEASE OF [place] CORONARY ARTERY W/O ANG PCTRS Status: Chronic Qualifiers: Coronary Disease-Associated Artery/Lesion type: bypass graft [place] vs. transplanted heart: [place] heart (10) Dyslipidemia Code(s): E78.5 - HYPERLIPIDEMIA, UNSPECIFIED Status: Chronic (11) GERD (gastroesophageal reflux disease) Code(s): K21.9 - GASTRO-ESOPHAGEAL REFLUX DISEASE WITHOUT ESOPHAGITIS Status: Chronic Qualifiers: Esophagitis presence: without esophagitis Qualified Code(s): K21.9 - Gastro -esophageal reflux disease without esophagitis (12) Hypertension Code(s): I10 - ESSENTIAL (PRIMARY) HYPERTENSION Status: Chronic Qualifiers: Hypertension type: essential hypertension Qualified Code(s): I10 - Essential (primary) hypertension - Plan is on cefepime, solumedrol, nebs, protonix, coreg, hydralazine for now. encourage po intake as tolerated, start full liq and advance may transfer to onc floor got extubated 06/29/2019 has h/o lung cancer likely stage 4, prognosis guarded hemostable
[2019-06-30 12:59] VITALS: BMI 25.1
[2019-06-30] MEDS: Acetaminophen 325 MG TAB PO PRN ×2 (13:13→19:34)
[2019-06-30] MEDS: hydrALAZINE 25 MG TAB PO SCH ×2 (14:17→19:34)
--- NOTE | 2019-06-30 15:00 | PDOC.MOPN ---
Interval History: sitting in chair, chest sore from compressions. - Vital Signs Vital Signs: Vital Signs (12 hours) Temp Pulse Resp BP Pulse Ox 06/30/19 14:50 95 24 H 90 L 06/30/19 14:17 89 178/87 H 06/30/19 12:00 97.6 F 06/30/19 10:34 89 29 H 91 L 06/30/19 08:00 87 L 06/30/19 07:20 89 L 06/30/19 07:17 76 24 H 89 L 06/30/19 07:00 98.0 F 06/30/19 04:00 97.5 F L Weight Admit Weight 145 lb Weight 185 lb 3.013 oz Most Recent Monitor Data Heart Rate from ECG 96 NIBP 178/87 NIBP BP-Mean 117 Respiration from ECG 43 SpO2 89 - Physical Exam General: Alert, Oriented x3, No acute distress HEENT: Atraumatic, PERRLA, EOMI, Mucous membr. moist/pink Lungs: Other Cardiovascular: Other (pvcs) Abdomen: Normal bowel sounds, Soft, No tenderness, No hepatospenomegaly, No masses Extremities: No clubbing, No cyanosis, No edema, Normal pulses, No tenderness/ swelling Neurological: Normal speech - Labs Result Diagrams: 06/30/19 03:45 06/30/19 03:45 Lab results: Laboratory Results - last 24 hr 06/30/19 03:45: WBC 13.0 H, RBC 4.14 L, Hgb 12.1 L, Hct 37.5 L, MCV 90.5, MCH 29.2, MCHC 32.2, RDW 13.1, Plt Count 135, MPV 7.8, Neutrophils % (Manual) 81 H, Band Neuts % (Manual) 10, Lymphocytes % (Manual) 3 L, Monocytes % (Manual) 6, Acanthocytes (Spur) SLIGHT = 1-5 cells 06/30/19 03:45: Sodium 142, Potassium 3.8, Chloride 106, Carbon Dioxide 27, Anion Gap 13, BUN 46 H, Creatinine 0.97, Estimated GFR (MDRD) 74, Glucose 112 H , Calcium 9.7 Status: lab reviewed by me A/P - Problem (1) Bronchoalveolar carcinoma Current Visit: Yes Code(s): C34.90 - MALIGNANT NEOPLASM OF UNSP PART OF UNSP BRONCHUS OR LUNG Status: Chronic - Plan Plan: 1. Continue Crizontinib once delivers home med. Patient had only 2 doses prior to admission 2. transfer on Onc 3. Continue PT/OT
[2019-06-30] MEDS ORDERED: Ondansetron ODT 8 MG TAB PO PRN (15:02)
--- NOTE | 2019-06-30 16:02 | PQF ---
DATE: 06-30-19 ATTN: DR. ALEKSEY CHEN Please exercise your independent, professional judgment in responding to the clarification form. Clinical indicators are provided on the bottom of this form for your review Please check appropriate box(s) to clarify if the following diagnosis has been ruled in or ruled out: SEPTIC SHOCK [ x] Ruled in diagnosis [ ] Continue to treat [x ] Resolved [ ] Ruled out diagnosis [ ] Other diagnosis [ ] Unable to determine In addition, please specify: Present on Admission (POA): [ x] Yes [ ] No [ ] Unable to determine For continuity of documentation, please document condition throughout progress notes and discharge summary. Thank You. CLINICAL INDICATORS - SIGNS / SYMPTOMS / LABS / RESULTS AND LOCATION IN MR: H&P 06-26-19: SHOCK, LIKELY SEPTIC, S/P CARDIAC ARREST, BRADYCARDIA, ACUTE RENAL FAILURE, ACUTE RESPIRATORY FAILURE WITH HYPOXIA, DIASTOLIC CHF, BRONCHOALVEOLAR CARCINOMA PN DR. ABDULLAHI 06-27-19: SEE POSSIBLE SEPTIC SHOCK RELATED TO POSTOBSTRUCTIVE PNEUMONIA WBC: 06-26-19: 11.8 06-29-19: 12.8 06-30-19: 13.0 BANDS: 06-29-19: 20% TEMP: 06-26-19: 99.3, 99.1, 100.2, 99.5 BP: 06-26-19: 88/57, 109/54, 97/52 RISK FACTORS / RESULTS AND LOCATION IN MR: H&P 06-27-19: CPR WAS PERFORMED WITH ROSC, RECENTLY DX WITH BRONCHOALVEOLAR CARCINOMA, A FIB, STARTED IMMUNOTHERAPY YESTERDAY, FALL AT HOME, CARDIAC ARREST TREATMENTS / RESULTS AND LOCATION IN MR: H&P 06-27-19: IN ICU, VENTILATOR, IV ANTIBIOTICS STARTED EMPIRICALLY. VASOPRESSORS AND TITRATE TO ACHIEVE MAP OF GREATER THAN 60. (This form is maintained as a part of the permanent medical record) 2014 [employer], [employer]. All Rights Reserved [email or web address]
[2019-06-30] MEDS: Carvedilol 6.25 MG TAB PO SCH (19:34)
[2019-06-30] MEDS: Atorvastatin Calcium 10 MG TAB PO SCH (19:35)
[2019-06-30] MEDS: Melatonin 3 MG TAB PO PRN (20:50)
[2019-07-01] MEDS: Acetaminophen 325 MG TAB PO PRN ×3 (01:43→14:32)
[2019-07-01] MEDS: methylPREDNISolone Sod Succ 40 MG VIAL IVP SCH ×2 (06:03→15:01)
[2019-07-01] MEDS: ALPRAZolam 0.25 MG TAB PO PRN ×2 (06:04→23:18)
[2019-07-01 06:07] LABS: Hemoglobin 12.1 g/dL (14.0-18.0); Mean Corpuscular HGB CONC 32.9 g/dL (32.0-36.0); Mean Corpuscular Hemoglobin 29.5 pg (27.0-31.0); Mean Corpuscular Volume 89.7 fL (78.0-98.0); RBC Distribution Width 12.9 % (11.5-14.5); Red Blood Cell (RBC) Count 4.09 mill/uL (4.70-6.10)
[2019-07-01 06:11] LABS: Anion Gap 9 mmol/L (10-20); BUN (Urea Nitrogen) 44 mg/dL (8.4-25.7); Calc. Creatinine Clearance 86 mL/min (70-130); Calcium 9.8 mg/dL (7.8-10.44); Carbon Dioxide 29 mmol/L (23-31); Chloride 107 mmol/L (98-107); Estimated GFR-MDRD Greater than 90; Glucose 126 mg/dL (83-110); Sodium 141 mmol/L (136-145)
[2019-07-01 06:29] LABS: White Blood Cell (WBC) Count 12.6 thou/uL (4.8-10.8)
[2019-07-01 06:30] LABS: Mean Platelet Volume 7.9 fL (7.4-10.4); Platelet Count 128 thou/uL (130-400)
[2019-07-01 06:42] LABS: Band 10 % (5-11); Eosinophils 1 % (0-10); Lymphocytes 7 % (21-51); MDiff Complete? YES; Monocytes 6 % (0-10); Neutrophil 76 % (42-75)
[2019-07-01] MEDS: Carvedilol 6.25 MG TAB PO SCH ×2 (08:06→19:57)
[2019-07-01] MEDS: guaiFENesin ER 600 MG TAB PO SCH ×2 (08:06→19:57)
[2019-07-01] MEDS: Multivitamin W/ Minerals 1 TAB PO SCH (08:06)
[2019-07-01] MEDS: Stress 600 With Zinc 1 TAB PO SCH (08:06)
[2019-07-01] MEDS: Lactinex Tablet PO SCH (08:06)
[2019-07-01] MEDS: CRIZOTINIB 250 MG PO SCH ×2 (08:07→19:58)
[2019-07-01] MEDS: hydrALAZINE 25 MG TAB PO SCH ×3 (08:07→19:57)
[2019-07-01] MEDS: Enoxaparin Sodium 40 MG/0.4 ML SYRINGE SC SCH (08:09)
[2019-07-01] MEDS: Cefepime 1 GM in Sodium Chloride 0.9% 100 ML IVPB SCH (09:19)
--- NOTE | 2019-07-01 09:49 | PDOC.HOSPP ---
- Subjective Encounter Date: 07/01/19 Encounter Time: 09:40 Subjective: breathing better, is tolerating liq diet has ambulated around 200ft with PT wants stronger pain meds for his chest wall pain from cpr - Objective Vital Signs & Weight: Vital Signs (12 hours) Temp Pulse Resp BP BP Pulse Ox 07/01/19 08:07 88 133/71 07/01/19 08:06 133/71 07/01/19 08:00 97.6 F 80 24 H 133/71 88 L 07/01/19 07:36 88 24 H 88 L 07/01/19 04:00 98.1 F 73 22 H 163/78 H 91 L 07/01/19 02:49 84 20 07/01/19 00:48 92 L 06/30/19 23:29 97.6 F 68 20 166/80 H 93 L 06/30/19 22:10 88 18 Weight Admit Weight 145 lb Weight 185 lb 3.013 oz Most Recent Monitor Data Heart Rate from ECG 86 NIBP 176/120 NIBP BP-Mean 138 Respiration from ECG 39 SpO2 89 I&O: 06/30/19 07/01/19 07/02/19 06:59 06:59 06:59 Intake Total 1088.3 1528 Output Total 1400 1010 Balance -311.7 518 Result Diagrams: 07/01/19 05:42 07/01/19 05:42 Hospitalist ROS - Medication Medications: Active Medications Generic Name Dose Route Start Last Admin Trade Name Freq PRN Reason Stop Dose Admin Acetaminophen 650 mg 06/30/19 12:51 07/01/19 08:06 Tylenol PO 650 mg Q6H PRN Administration Pain Acidophilus 1 tab 07/01/19 09:00 07/01/19 08:06 Floranex PO 1 tab DAILY SURYA Administration Albuterol/Ipratropium 3 ml 06/26/19 14:30 07/01/19 07:36 Duoneb NEB 3 ml [id number] SURYA Administration Alprazolam 0.25 mg 06/29/19 12:54 07/01/19 06:04 Xanax PO 0.25 mg Q6H PRN Administration Anxiety Atorvastatin Calcium 10 mg 06/30/19 21:00 06/30/19 19:35 Lipitor PO 10 mg HS SURYA Administration Carvedilol 12.5 mg 06/30/19 21:00 07/01/19 08:06 Coreg PO 12.5 mg BID SURYA Administration Enoxaparin Sodium 40 mg 06/29/19 09:00 07/01/19 08:09 Lovenox SC 40 mg 0900 SURYA Administration Guaifenesin 600 mg 06/28/19 21:00 07/01/19 08:06 Mucinex PO 600 mg Q12HR SURYA Administration Hydralazine HCl 50 mg 06/30/19 15:00 07/01/19 08:07 Apresoline PO 50 mg TID SURYA Administration Cefepime HCl 1 gm/ Sodium 100 mls @ 200 mls/hr 06/26/19 21:00 07/01/19 09:19 Chloride IVPB 100 mls Q12HR SURYA Administration Iron/Minerals/Multivitamins 1 tab 07/01/19 09:00 07/01/19 08:06 Theragran M PO 1 tab DAILY SURYA Administration Melatonin 3 mg 06/29/19 22:59 06/30/19 20:50 Melatonin PO 3 mg HSPRN PRN Administration Insomnia Methylprednisolone Sodium Succinate 40 mg 06/28/19 14:00 07/01/19 06:03 Solu-Medrol IVP 40 mg Q8HR SURYA Administration Multivitamins/Zinc 1 tab 07/01/19 09:00 07/01/19 08:06 Stress 600 With Zinc PO 1 tab DAILY SURYA Administration Pantoprazole Sodium 40 mg 06/29/19 09:00 07/01/19 08:06 Protonix PO 40 mg DAILY SURYA Administration Crizotinib 250 Mg [ 1 each 07/01/19 09:00 07/01/19 08:07 Xalkori] Capsule PO 1 each BID SURYA Administration - Exam General Appearance: awake alert Eye: PERRL, anicteric sclera ENT: no oropharyngeal lesions, moist mucosa Neck: supple, no JVD Heart: RRR, no murmur Respiratory: no wheezes, rales, rhonchi Gastrointestinal: soft, non-tender, non-distended, normal bowel sounds Extremities: no cyanosis, no edema Neurological: cranial nerve grossly intact, no focal deficits Psychiatric: A&O x 3 Hosp A/P (1) Acute respiratory failure with hypoxia Code(s): J96.01 - ACUTE RESPIRATORY FAILURE WITH HYPOXIA Status: Acute (2) type 2 nstemi Status: Resolved (3) Moderate mitral regurgitation Code(s): I34.0 - NONRHEUMATIC MITRAL (VALVE) INSUFFICIENCY Status: Chronic (4) LEDY (acute kidney injury) Code(s): N17.9 - ACUTE KIDNEY FAILURE, UNSPECIFIED Status: Acute (5) Afib Code(s): I48.91 - UNSPECIFIED ATRIAL FIBRILLATION Status: Chronic Qualifiers: Atrial fibrillation type: paroxysmal Qualified Code(s): I48.0 - Paroxysmal atrial fibrillation (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 - MALIGNANT NEOPLASM OF UNSP PART OF UNSP BRONCHUS OR LUNG Status: Chronic (7) Diastolic heart failure Code(s): I50.30 - UNSPECIFIED DIASTOLIC (CONGESTIVE) HEART FAILURE Status: Acute Qualifiers: Heart failure chronicity: acute on chronic Qualified Code(s): I50.33 - Acute on chronic diastolic (congestive) heart failure (8) History of cardiac arrest Code(s): Z86.74 - PERSONAL HISTORY OF SUDDEN CARDIAC ARREST Status: Acute (9) Coronary artery disease Code(s): I25.10 - ATHSCL HEART DISEASE OF [place] CORONARY ARTERY W/O ANG PCTRS Status: Chronic Qualifiers: Coronary Disease-Associated Artery/Lesion type: bypass graft [place] vs. transplanted heart: [place] heart (10) Dyslipidemia Code(s): E78.5 - HYPERLIPIDEMIA, UNSPECIFIED Status: Chronic (11) GERD (gastroesophageal reflux disease) Code(s): K21.9 - GASTRO-ESOPHAGEAL REFLUX DISEASE WITHOUT ESOPHAGITIS Status: Chronic Qualifiers: Esophagitis presence: without esophagitis Qualified Code(s): K21.9 - Gastro -esophageal reflux disease without esophagitis (12) Hypertension Code(s): I10 - ESSENTIAL (PRIMARY) HYPERTENSION Status: Chronic Qualifiers: Hypertension type: essential hypertension Qualified Code(s): I10 - Essential (primary) hypertension - Plan is on cefepime, solumedrol, nebs, protonix, coreg, hydralazine. encourage po intake as tolerated, advance diet to solid. Has ambulated around 200ft with PT got extubated 06/29/2019 has h/o lung cancer likely stage 4, prognosis guarded hemostable will need rehab/swing bed in view of cardiac arrest/intubation and multiple med issues or home with hospice Onc is planning to restart immunotherapy and suggest he go to swing/rehab to recover well.
[2019-07-01] MEDS ORDERED: Lidocaine 5% Patch TD SCH (10:00)
[2019-07-01] MEDS: traMADol HCl 50 MG TAB PO PRN ×2 (11:24→23:13)
--- NOTE | 2019-07-01 14:27 | PDOC.MOPN ---
Interval History: sitting in chair, doing well. - Vital Signs Vital Signs: Vital Signs (12 hours) Temp Pulse Resp BP BP Pulse Ox Pulse Ox 07/01/19 14:12 89 22 H 91 L 07/01/19 12:00 98.4 F 70 22 H 135/65 89 L 07/01/19 10:59 91 24 H 89 L 07/01/19 08:44 88 L 07/01/19 08:20 88 L 07/01/19 08:07 88 133/71 07/01/19 08:06 133/71 07/01/19 08:00 97.6 F 80 24 H 133/71 88 L 07/01/19 07:36 88 24 H 88 L 07/01/19 04:00 98.1 F 73 22 H 163/78 H 91 L 07/01/19 02:49 84 20 Pulse Ox 07/01/19 14:12 07/01/19 12:00 07/01/19 10:59 07/01/19 08:44 89 L 07/01/19 08:20 07/01/19 08:07 07/01/19 08:06 07/01/19 08:00 07/01/19 07:36 07/01/19 04:00 07/01/19 02:49 Weight Admit Weight 145 lb Weight 185 lb 3.013 oz Most Recent Monitor Data Heart Rate from ECG 86 NIBP 176/120 NIBP BP-Mean 138 Respiration from ECG 39 SpO2 89 - Physical Exam General: Alert, Oriented x3, No acute distress HEENT: Atraumatic, PERRLA, EOMI, Mucous membr. moist/pink Lungs: Clear to auscultation, Normal air movement Cardiovascular: Regular rate, Normal S1, Normal S2, No murmurs, Gallops, Rubs Abdomen: Normal bowel sounds, Soft, No tenderness, No hepatospenomegaly, No masses Extremities: No clubbing, No cyanosis, No edema, Normal pulses, No tenderness/ swelling Neurological: Normal speech - Labs Result Diagrams: 07/01/19 05:42 07/01/19 05:42 Lab results: Laboratory Results - last 24 hr 07/01/19 05:42: WBC 12.6 H, RBC 4.09 L, Hgb 12.1 L, Hct 36.7 L, MCV 89.7, MCH 29.5, MCHC 32.9, RDW 12.9, Plt Count 128 L, MPV 7.9, Neutrophils % (Manual) 76 H , Band Neuts % (Manual) 10, Lymphocytes % (Manual) 7 L, Monocytes % (Manual) 6, Eosinophils % (Manual) 1 07/01/19 05:42: Sodium 141, Potassium 4.0, Chloride 107, Carbon Dioxide 29, Anion Gap 9 L, BUN 44 H, Creatinine 0.79, Estimated GFR (MDRD) Greater than 90 , Glucose 126 H, Calcium 9.8 Status: lab reviewed by me A/P - Problem (1) Bronchoalveolar carcinoma Current Visit: Yes Code(s): C34.90 - MALIGNANT NEOPLASM OF UNSP PART OF UNSP BRONCHUS OR LUNG Status: Chronic - Plan Plan: continue tylenol for chest wall pain Continue crizotinib Likely home in am.
--- NOTE | 2019-07-01 15:09 | PRG ---
DATE OF SERVICE: 07/01/2019 SUBJECTIVE: Mr. Chinchilla is doing well. He has no complaints. He has had more than adequate IV antimicrobial therapy in my opinion. He is in no distress. He still has crackles at his lung base as expected. He is still on oxygen. He looks pretty close to his baseline in my opinion. LABORATORY DATA: White count 12.6, hemoglobin 12.1, platelets 128,000. Electrolytes are unremarkable. BUN 44, creatinine 0.79. I suspect his BUN is elevated because of his steroids. We will discontinue his steroids as he does not have anything going on that is steroid responsive. I have discontinued his IV antibiotics. He now has a lidocaine patch on and says he thinks this is helping with his discomfort. In my opinion, he could probably be discharged home in the morning for close followup with his oncologist. He already has oxygen at home. Job ID: [id number]
[2019-07-01] MEDS: Atorvastatin Calcium 10 MG TAB PO SCH (19:57)
[2019-07-01] MEDS ORDERED: Lidocaine Patch Removal 1 EACH TOP SCH (21:00)
[2019-07-02] MEDS: Melatonin 3 MG TAB PO PRN (01:37)
[2019-07-02 08:20] VITALS: TEMP 98.5
[2019-07-02] MEDS: Carvedilol 6.25 MG TAB PO SCH (08:41)
[2019-07-02] MEDS: Multivitamin W/ Minerals 1 TAB PO SCH (08:41)
[2019-07-02] MEDS: hydrALAZINE 25 MG TAB PO SCH (08:42)
[2019-07-02 08:43] VITALS: BP 132/78
[2019-07-02] MEDS: guaiFENesin ER 600 MG TAB PO SCH (08:43)
[2019-07-02] MEDS: CRIZOTINIB 250 MG PO SCH (08:44)
[2019-07-02] MEDS: Lactinex Tablet PO SCH (08:44)
[2019-07-02] MEDS: Enoxaparin Sodium 40 MG/0.4 ML SYRINGE SC SCH (08:51)
[2019-07-02] MEDS: Stress 600 With Zinc 1 TAB PO SCH (08:55)
[2019-07-02] MEDS ORDERED: Lidocaine 5% Patch TD SCH (09:00)
--- NOTE | 2019-07-02 10:04 | PDOC.MOPN ---
Interval History: no complaints, wants to go home. - Vital Signs Vital Signs: Vital Signs (12 hours) Temp Pulse Resp BP BP Pulse Ox 07/02/19 08:42 65 07/02/19 08:41 132/78 07/02/19 08:19 98.5 F 65 18 135/70 89 L 07/02/19 07:37 91 20 88 L 07/01/19 22:52 85 16 90 L Weight Admit Weight 145 lb Weight 185 lb 3.013 oz Most Recent Monitor Data Heart Rate from ECG 86 NIBP 176/120 NIBP BP-Mean 138 Respiration from ECG 39 SpO2 89 - Physical Exam General: Alert, Oriented x3, No acute distress HEENT: Atraumatic, PERRLA, EOMI, Mucous membr. moist/pink Lungs: Clear to auscultation, Normal air movement Cardiovascular: Regular rate, Normal S1, Normal S2, No murmurs, Gallops, Rubs Abdomen: Normal bowel sounds, Soft, No tenderness, No hepatospenomegaly, No masses Extremities: No clubbing, No cyanosis, No edema, Normal pulses, No tenderness/ swelling Skin: No rashes, No breakdown, No significant lesion Neurological: Normal gait, Normal speech, Strength at 5/5 X4 ext, Normal tone, Sensation intact, Cranial nerves 3-12 NL, Reflexes 2+ Psych/Mental Status: Mental status NL, Mood NL - Labs Result Diagrams: 07/01/19 05:42 07/01/19 05:42 Status: lab reviewed by me A/P - Problem (1) Bronchoalveolar carcinoma Current Visit: Yes Code(s): C34.90 - MALIGNANT NEOPLASM OF UNSP PART OF UNSP BRONCHUS OR LUNG Status: Chronic - Plan Plan: continue Crizotinib BID Ok to dc home Follow-up Dr. Butler on 07/09/19
--- NOTE | 2019-07-02 18:30 | DIS ---
DATE OF ADMISSION: 06/26/2019 DATE OF DISCHARGE: 07/02/2019 DISCHARGE DISPOSITION: Home. PRIMARY DISCHARGE DIAGNOSES: Acute respiratory failure with hypoxia; bronchoalveolar carcinoma, on crizotinib twice daily; type 2 myocardial infarction; moderate mitral regurgitation; acute kidney injury on arrival, resolved; paroxysmal atrial fibrillation; congestive heart failure with diastolic dysfunction, [id number]; cardiac arrest on admission with bradycardia and respiratory failure, status post intubation and successful extubation; coronary artery disease; dyslipidemia; gastroesophageal reflux disease; hypertension. The patient got extubated on 06/29/2019. PROCEDURES DONE DURING HOSPITALIZATION: CT chest done on the day of admission showed findings consistent with CHF. There are patchy airspace consolidations within both lower lobes as well as portions of the posterior right upper lobe, bilateral anterior rib fractures likely related to resuscitation. A CT brain without contrast done on admission showed no acute intracranial abnormality. Age-related atrophy and moderate chronic small vessel white matter ischemic changes were seen. Left frontal scalp contusion was seen. Urine culture, no growth. Hemoglobin and hematocrit 12 and 36, platelet count 128, MCV is 89, white count of 12. Blood gas on arrival showed a pH of 7.27, pCO2 48, PO2 84. Discharge BUN and creatinine are 44 and 0.7. Albumin is 3.2. Admitting BUN and creatinine were 28 and 1.6. BNP was 212. COVID-19 PCR not detected. INPATIENT CONSULT: Dr. Deras for Pulmonology, Ms. Yuki Fitzgerald for Oncology, and Dr. Torsten Metcalf for Oncology. DISCHARGE MEDICATIONS: 1. Aspirin 325 mg p.o. daily. 2. Vitamin C 1000 mg p.o. daily. 3. Lipitor 10 mg p.o. at bedtime. 4. Coreg 12.5 mg p.o. twice daily. 5. Crizotinib 250 mg capsule twice daily. 6. Lasix 40 mg daily. 7. Probiotic one capsule daily. 8. Ativan 1 mg p.o. at bedtime and 0.5 mg twice daily p.r.n. 9. Vitamin B12 1000 mcg p.o. daily. 10. Multivitamin one tablet once daily. 11. Omeprazole 20 mg daily. 12. Zofran p.r.n. 13. Hydralazine 50 mg 3 times daily. 14. DuoNeb q.4 hourly p.r.n. 15. Lidocaine 5% transdermal patch to anterior chest wall for CPR related pain. 16. K-Dur 20 mEq p.o. on alternate days. 17. Ultram 50 mg twice daily p.r.n. for pain. ALLERGIES: NO KNOWN DRUG ALLERGIES. DISCHARGE PLAN: The patient to follow up with Dr. Butler on 07/09/2019 at 2:30 p.m. He needs follow up with Dr. Butler in 1 week, Dr. Deras in 2 to 3 weeks. BRIEF COURSE DURING HOSPITALIZATION: The patient initially got admitted on the after he sustained sudden cardiac arrest with bradycardia and acute respiratory failure with hypoxia. He has known history of bronchoalveolar carcinoma stage IV and was on immunotherapy. The patient had return of circulation, and was admitted to ICU. He was also on norepinephrine drip initially for hypotension, which resolved. He was successfully extubated on the . His overall prognosis is guarded to poor. The patient made dramatic recovery during his stay and has ambulated nearly 200 feet with physical therapy. He is on 3 L nasal cannula and is saturating well. This is his home dose. He will follow up with Dr. Butler in the outpatient setting. The patient and family did not want to go to rehab or have placement. He has been cleared for discharge by Dr. Deras and Ms. Yuki Fitzgerald for Oncology. Please note, I have seen and examined the patient on the day of discharge. Job ID: [id number] [facility]
== END 2019-07-02 12:39 | disposition home health service (06) | DRG 208 ==
LOC: ERS 05:18 → CCU 05:29 → ONC 06-30 15:56
PROVIDERS: ADMIT Emergency Medicine; ATTEND Emergency Medicine
PROC: 0BH17EZ Insertion of Endotracheal Airway into Trachea, Via Natural or Artificial Opening (ICD-10-PCS; principal; 2019-06-26)
PROC: 5A1945Z Respiratory Ventilation, 24-96 Consecutive Hours (ICD-10-PCS; 2019-06-26)
PROC: 5A12012 Performance of Cardiac Output, Single, Manual (ICD-10-PCS; 2019-06-26)
PROC: 02HV33Z Insertion of Infusion Device into Superior Vena Cava, Percutaneous Approach (ICD-10-PCS; 2019-06-26)
PROC: B548ZZA Ultrasonography of Superior Vena Cava, Guidance (ICD-10-PCS; 2019-06-26)
PROC: 3E043XZ Introduction of Vasopressor into Central Vein, Percutaneous Approach (ICD-10-PCS; 2019-06-26)
PROC: 8E0ZXY6 Isolation (ICD-10-PCS; 2019-06-26)
DX: J96.01 Acute respiratory failure with hypoxia (principal); A41.9 Sepsis, unspecified organism; R65.21 Severe sepsis with septic shock; I21.A1 Myocardial infarction type 2; I50.33 Acute on chronic diastolic (congestive) heart failure; I46.2 Cardiac arrest due to underlying cardiac condition; C34.92 Malignant neoplasm of unspecified part of left bronchus or lung; N17.9 Acute kidney failure, unspecified; I13.0 Hypertensive heart and chronic kidney disease with heart failure and stage 1 through stage 4 chronic kidney disease, or unspecified chronic kidney disease; C34.91 Malignant neoplasm of unspecified part of right bronchus or lung; Z66 Do not resuscitate; Z51.5 Encounter for palliative care; I34.0 Nonrheumatic mitral (valve) insufficiency; R00.1 Bradycardia, unspecified; I48.0 Paroxysmal atrial fibrillation; I25.10 Atherosclerotic heart disease of native coronary artery without angina pectoris; E78.5 Hyperlipidemia, unspecified; N18.9 Chronic kidney disease, unspecified; E86.9 Volume depletion, unspecified; I95.9 Hypotension, unspecified; E78.00 Pure hypercholesterolemia, unspecified; W18.39XA Other fall on same level, initial encounter; K21.9 Gastro-esophageal reflux disease without esophagitis; Z79.01 Long term (current) use of anticoagulants; Y92.090 Kitchen in other non-institutional residence as the place of occurrence of the external cause; I25.2 Old myocardial infarction; Z87.891 Personal history of nicotine dependence; Z95.1 Presence of aortocoronary bypass graft; Z20.828 Contact with and (suspected) exposure to other viral communicable diseases
CPT/HCPCS: 36415; 51702; 70450; 71045; 71250; 80048; 80053; 81003; 81015; 82330; 82553; 82803; 82805; 83605; 83880; 84484; 85007; 85025; 85027; 85610; 85730; 87086; 87635; 92950; 93005; 94002; 94003; 94640; 96365; 96375; J0461; J0692; J1650; J2704; J2920; J3010; J3490; J7070; J7620; P9045; U0003

== ENCOUNTER 2019-07-14 21:28 | Inpatient (IN) | payer MEDICARE, BC ==
[~2019-07-14 21:28] MED LIST changes: +Atropine Sulfate 1 mg/10 ml Syringe ONE; -ISOVUE-370 76%-LOCM 1 ML ONE
[2019-07-14 21:49] LABS: #Basophils 0.1 thou/uL (0.0-0.2); #Eosinphils 0.1 thou/uL (0.0-0.7); #Lymphocytes 0.7 thou/uL (1.20-3.40); #Monocytes 0.8 thou/uL (0.11-0.59); #Neutrophils 11.5 thou/uL (1.40-6.50); %Basophils 0.4 % (0.0-1.0); %Eosinophils 0.7 % (0.0-10.0); %Lymphocytes 5.5 % (21.0-51.0); %Monocytes 6.3 % (0.0-10.0); Hemoglobin 12.6 g/dL (14.0-18.0); Mean Corpuscular HGB CONC 31.9 g/dL (32.0-36.0); Mean Corpuscular Hemoglobin 29.5 pg (27.0-31.0); Mean Corpuscular Volume 92.6 fL (78.0-98.0); Mean Platelet Volume 7.6 fL (7.4-10.4); Platelet Count 155 thou/uL (130-400); RBC Distribution Width 14.1 % (11.5-14.5); Red Blood Cell (RBC) Count 4.28 mill/uL (4.70-6.10); White Blood Cell (WBC) Count 13.2 thou/uL (4.8-10.8)
[2019-07-14 22:11] LABS: ALT (SGPT) 39 U/L (8-55); AST (SGOT) 29 U/L (5-34); Albumin 3.2 g/dL (3.4-4.8); Alkaline Phosphatase 134 U/L (40-110); Anion Gap 10 mmol/L (10-20); BUN (Urea Nitrogen) 18 mg/dL (8.4-25.7); Bilirubin, Total 0.8 mg/dL (0.2-1.2); Calc. Creatinine Clearance 0 mL/min (70-130); Calcium 8.7 mg/dL (7.8-10.44); Carbon Dioxide 34 mmol/L (23-31); Chloride 92 mmol/L (98-107); Estimated GFR-MDRD Greater than 90; Glucose 139 mg/dL (83-110); Protein, Total 6.2 g/dL (5.8-8.1); Sodium 132 mmol/L (136-145)
[2019-07-14 22:32] LABS: CKMB 6.5 ng/mL (0-6.6)
[2019-07-14] MEDS ORDERED: Aspirin Chewable 81 MG TAB ONE ×2 (22:33→22:34)
[2019-07-14] MEDS ORDERED: Furosemide 40 MG/4 ML VIAL ONE (22:34)
[2019-07-14] MEDS ORDERED: Nitroglycerin 2% Ointment 1 INCH/1 GM Packet ONE (22:34)
[2019-07-15] MEDS ORDERED: Succinylcholine Chloride 20 MG/ML 10 ml SYRINGE FS ONE (00:10)
[2019-07-15] MEDS ORDERED: Fentanyl 100 MCG/2 ML VIAL ONE (00:37)
[2019-07-15] MEDS ORDERED: fentaNYL Citrate/PF 2,000 MCG in Sodium Chloride 0.9% 60 ML IV SCH (00:38)
[2019-07-15] MEDS ORDERED: Norepinephrine 8 MG/0.9% NS 250 ML ONE (00:57)
[2019-07-15] MEDS ORDERED: Norepinephrine 8 MG/0.9% NS 250 ML IVPB PRN (01:06)
[2019-07-15] MEDS ORDERED: CCU Electrolyte Replacement 1 EACH IVPB ONE (01:06)
[2019-07-15] MEDS ORDERED: Acetaminophen 325 MG/10.15 ML UDCUP PO PRN (01:06)
[2019-07-15] MEDS ORDERED: Acetaminophen 325 MG Suppository PR PRN (01:06)
[2019-07-15] MEDS ORDERED: Bisacodyl 10 MG SUPP PR PRN (01:06)
[2019-07-15] MEDS ORDERED: Ondansetron PF 4 MG/2 ML Vial IVP PRN (01:06)
[2019-07-15 01:14] LABS: Troponin I 0.056 ng/mL (< 0.028)
[2019-07-15] MEDS ORDERED: Ventilator Sedation Protocol 1 EACH FS SCH (01:15)
[2019-07-15 01:28] LABS: Actual Bicarbonate (HCO3a) 31.6 mEq/L (22-28); Analyzer IN Cardio ER; Base Excess (BEa) 2.4 mEq/L (-2.0 to +3.0); Calcium, Ionized 1.14 mmol/L (1.12-1.30); Carboxyhemoglobin (COHb) 0.2 gm% (0.0-3.0); Hemoglobin (Hb) 11.4 g/dL (14.0-18.0); O2 Tension (PaO2) 90.9 mmHg (> 60.0); Potassium - ABG Lab 3.72 mmol/L (3.70-5.30)
[2019-07-15] MEDS ORDERED: Propofol BOLUS 1,000 MG/100 ML VIAL IV PRN (01:32)
[2019-07-15] MEDS ORDERED: Morphine 2 MG/ML SYRINGE SLOW IVP PRN (01:32)
[2019-07-15] MEDS ORDERED: DISCONTINUE PREVIOUS NARCOTIC PAIN MEDICATIONS AND BENZODIAZEPINES FS SCH (01:32)
[2019-07-15] MEDS ORDERED: Fentanyl BOLUS 250 ML IVPB PRN (01:32)
[2019-07-15] MEDS ORDERED: CCU ELECTROLYTE REPLACEMENT PROTOCOL FS PRN (01:33)
[2019-07-15] MEDS ORDERED: Magnesium Oxide 400 MG TAB PO PRN ×2 (01:33)
[2019-07-15] MEDS ORDERED: Magnesium 2 GM/50 ML 2 GM in Premix Bag 1 BAG IVPB PRN (01:33)
[2019-07-15] MEDS ORDERED: Potassium Chloride 40 MEQ in Premix Bag 1 BAG IVPB PRN (01:33)
[2019-07-15] MEDS ORDERED: PHOS-NAK 1 PKT PACK PO PRN ×2 (01:33)
[2019-07-15] MEDS ORDERED: Potassium Phosphate 15 MMOL in Sodium Chloride 0.9% 250 ML 250 ML IV PRN (01:33)
[2019-07-15] MEDS ORDERED: Potassium Chloride 40 MEQ in Sodium Chloride 0.9% 250 ML 250 ML IVPB PRN (01:33)
[2019-07-15] MEDS ORDERED: Potassium Phosphate 12 MMOL in Sodium Chloride 0.9% 250 ML 250 ML IV PRN (01:33)
[2019-07-15] MEDS ORDERED: Potassium Phosphate 9 MMOL in Sodium Chloride 0.9% 100 ML IVPB PRN (01:33)
[2019-07-15] MEDS ORDERED: Potassium Chloride 20 MEQ TAB PO PRN (01:33)
[2019-07-15] MEDS ORDERED: Bacteriostatic Water 30 ML VIAL FS PRN (01:36)
[2019-07-15 01:58] LABS: Lactic Acid 1.5 mmol/L (0.5-2.2)
[2019-07-15 02:05] LABS: CO2 Tension 76.6 mmHg (35.0-45.0); Puncture Site LBA; pH, Arterial 7.23 (7.35-7.45)
--- NOTE | 2019-07-15 02:11 | HP ---
PRIMARY CARE PHYSICIAN: Reed Cadena MD REASON FOR ADMISSION: Acute respiratory failure. HISTORY OF PRESENT ILLNESS: An 83-year-old male, who has underlying history of adenocarcinoma of lung, on immunotherapy, who was brought to emergency room for increasing shortness of breath. The patient has chronic respiratory failure and he is on 6 L nasal cannula oxygen all the time and as per family member, with that his oxygen saturation remaining in 80% to 90%. Family member noted that he was having increasing bilateral lower extremity edema and today he was feeling more weak and lethargic, and later on today, he was very difficult to arouse and that is why the patient was brought to emergency room. When he presented to the emergency room, he was not able to provide any history. He was saturating in 50s. He was requiring non-rebreather. The patient was maintaining blood pressure, but his pulse was running lower side. The patient has underlying history of recent cardiac arrest, required intubation and his most recent echocardiography showed EF 45% to 50% with moderate mitral regurgitation and aortic stenosis. In the emergency room, the patient's condition deteriorated, required intubation. The patient's heart rate was running lowest to 40, required atropine 1 time dose. The patient was also given aspirin as well as Lasix and nitroglycerin patch. After intubation, the patient's blood pressure also dropped and that is why he was requiring central line placement and he was also needing Levophed to keep blood pressure up. REVIEW OF SYSTEMS: All review of system tried to review with the patient but unable to review at this point because of intubated status. PAST MEDICAL HISTORY: Atrial fibrillation with slow ventricular response, bronchogenic carcinoma, chronic systolic and diastolic heart failure, hypertension, dyslipidemia, coronary artery disease with history of CABG, moderate mitral regurgitation, and moderate aortic stenosis. PAST SURGICAL HISTORY: CABG, bronchoscopy, and biopsy. PAST PSYCHIATRIC HISTORY: Reviewed and negative. SOCIAL HISTORY: The patient lives at home. He has home oxygen. He has remote history of smoking. No history of alcohol or other illicit drug abuse. FAMILY HISTORY: Unable to obtain from the patient, but no strong family history of premature coronary artery disease, stroke, or cancer. ALLERGIES: NO KNOWN DRUG ALLERGY. CURRENT HOME MEDICATIONS: Based on most recent hospital discharge, the patient is on following medications, 1. Vitamin C 1000 mg p.o. daily. 2. Aspirin 325 mg p.o. daily. 3. Lipitor 10 mg daily. 4. Coreg 12.5 mg p.o. twice daily. 5. Crizotinib 250 mg b.i.d. 6. Lasix 40 mg p.o. daily. 7. Lorazepam 1 mg p.o. at bedtime and 0.5 mg p.o. b.i.d. 8. Multivitamin one tablet p.o. daily. 9. Omeprazole 20 mg p.o. daily. 10. Hydralazine 50 mg p.o. t.i.d. 11. Lidoderm patch daily. 12. Potassium chloride 20 mEq p.o. every other day. 13. Tramadol 50 mg q.12 hourly p.r.n. EMERGENCY ROOM COURSE: Reviewed. PHYSICAL EXAMINATION: VITAL SIGNS: Most recent blood pressure is 68/50, pulse 47, respiratory rate 18, on ventilator. General: The patient is ill appearing, on ventilator. HEENT: Head, normocephalic and atraumatic. Eyes, pupils are round and reactive to light. ENT, endotracheal tube in place. NECK: Supple. No JVD. No meningeal signs of irritation. LUNGS: Bilateral rales noted. Air entry reduced at base. CARDIAC: S1 and S2. Bradycardia, irregular. Systolic murmur noted at aortic area and apex. ABDOMEN: Soft, bowel sounds present, nondistended. No organomegaly. No mass. BACK: Unremarkable. No CVA tenderness. EXTREMITIES: Upper extremity, passive movement of all joints is normal. Lower extremity, bilateral lower extremity edema noted. NEUROLOGIC: Unable to assess at this point. SKIN: No skin rash. Pallor noted. PSYCHIATRIC: Unable to assess. LABORATORY STUDIES: EKG showing atrial fibrillation with slow ventricular response, nonspecific ST-T changes. Chest x-ray showing bilateral pleural effusion, interstitial edema. CBC; WBC 13.2, hemoglobin 12.6, platelet 155. BMP; sodium 132, potassium 4.0, chloride 92, carbon dioxide 34, BUN 18, creatinine 0.79, glucose 139, calcium 8.7. LFT; AST 29, ALT 39, alkaline phosphatase 134, albumin 3.2. BNP 490, CK-MB2 of 6.5. Troponin I 0.057. Lactic acid 0.8. ASSESSMENT: 1. Acute respiratory failure with hypoxia. The patient was in respiratory distress, he was unresponsive, he was not maintaining saturation even with nonrebreather. The patient required intubation. The patient will be admitted in critical care unit. Pulmonary group will be consulted for ventilator management, underlying chronic lung condition as well as fluid overload status contributing to his respiratory failure. He has acute on chronic respiratory failure with hypoxia and possible hypercapnia likely due to underlying congestive heart failure exacerbation with history of lung cancer. 2. Acute metabolic encephalopathy, likely due to underlying hypoxia. We will obtain ABG as well to rule out any CO2 retention. 3. Acute on chronic systolic and diastolic heart failure. The patient has significant edema, elevated BNP. His chest x-ray is also consistent with interstitial edema. The patient will require Lasix 40 mg IV b.i.d. if blood pressure permits. 4. Hypotension in the emergency room after intubation. The patient will require central line placement and vasopressor support with Levophed will be started to keep blood pressure above 110. 5. Bradycardia. The patient has atrial fibrillation with slow ventricular response. Cardiology will be consulted. 6. Atrial fibrillation. The patient is not a candidate for chronic anticoagulation. We will continue aspirin. The patient's heart rate is very slow. Cardiology will be consulted. The patient is a very poor candidate for any further aggressive intervention like pacemaker. 7. Demand ischemia of myocardium. The patient will require several cardiac enzyme x2 and Cardiology will be consulted. 8. History of adenocarcinoma of lung. Continue chemotherapy after discharge when the patient is stable. 9. Dyslipidemia. We will continue Lipitor 10 mg p.o. at bedtime. 10. Deep venous thrombosis prophylaxis. Lovenox 40 mg subcu daily. 11. Gastrointestinal prophylaxis, Protonix 40 mg IV daily. CODE STATUS: The patient is full code. DISPOSITION PLAN: Based on clinical course, the patient's prognosis is extremely poor. At this point, the patient will be admitted for close monitoring in ICU. Job ID: [id number]
[2019-07-15 02:35] LABS: Actual Bicarbonate (HCO3a) 32.9 mEq/L (22-28); Base Excess (BEa) 4.6 mEq/L (-2.0 to +3.0); CO2 Tension 68.8 mmHg (35.0-45.0); O2 Tension (PaO2) 84.1 mmHg (> 60.0)
[2019-07-15 02:36] LABS: Calcium, Ionized 1.13 mmol/L (1.12-1.30); Carboxyhemoglobin (COHb) 1.1 gm% (0.0-3.0); Hemoglobin (Hb) 12.4 g/dL (14.0-18.0); Potassium - ABG Lab 4.57 mmol/L (3.70-5.30); Puncture Site RRA
[2019-07-15 02:43] VITALS: BMI 25.9
[2019-07-15] MEDS: DOPamine 400 MG/D5W 250 ML 250 ML IVPB SCH ×2 (03:13→21:22)
[2019-07-15] MEDS ORDERED: DOPamine 400 MG/D5W 250 ML 250 ML IVPB SCH (03:15)
--- NOTE | 2019-07-15 03:44 | PDOC.OP ---
Operative Note - Operative Note Operative Note: INDICATION: Hypotension, Need for central venous access for pressure support medications PROCEDURE DIRECTOR SELECTION AND ADMINISTRATION: Dr. Ayden Cox, Dr. Prisca Mcduffie, Dr. Riki Horvath ATTENDING PHYSICIAN: Dr. Riki Horvath In Attendance: Y Ultrasound Used: Y CONSENT: Consent was unable to be obtained from the patient prior to the procedure as he was sedated and no available family were present. PROCEDURE SUMMARY: Prior to beginning the procedure, I washed my hands thoroughly prior to starting sterile technique. A time out was performed. I wore a surgical cap, mask with protective eyewear, sterile gown and sterile gloves throughout the procedure. The LEFT inguinal region was prepped using chlorhexidine scrub and draped in sterile fashion using a full drape and sterile probe cover employed. The femoral pulse was identified. Local anesthestic was not required as the patient was already sedated for mechanical ventilation. Using ultrasound to identify the femoral vein and artery, the introducer needle was inserted medial to the femoral artery, inferior to the inguinal crease and into the femoral vein with ultrasound guidance. Venous blood was withdrawn. The syringe was removed and a guidewire was advanced into the introducer needle. A small incision was made at the skin surface with a scalpel and the introducer needle was exchanged for a dilator over the guidewire. After appropriate dilation was obtained, the dilator was exchanged over the wire for a triple-lumen central venous catheter. The wire was removed and the catheter was sutured in place. A sterile sorbaview shield was placed over the catheter at the insertion site. The patient tolerated the procedure without any hemodynamic compromise. At time of procedure completion, all ports aspirated and flushed properly. Estimated blood loss is 20 ml. Patient tolerated well.
[2019-07-15] MEDS: methylPREDNISolone Sod Succ 40 MG VIAL IVP SCH ×3 (05:04→21:22)
[2019-07-15 05:39] LABS: Troponin I 0.055 ng/mL (< 0.028)
--- NOTE | 2019-07-15 06:47 | RAD ---
PORTABLE CHEST: HISTORY: Shortness of breath and hypoxia. COMPARISON: 06/30/2019. FINDINGS/IMPRESSION: Cardiomegaly. Vascular congestion. Bilateral effusions and bibasilar atelectasis and infiltrates wi th edema. Similar findings were present on 06/30/2019, although the bibasilar densities appear more p rominent on the current study. POS: AGW
--- NOTE | 2019-07-15 07:55 | CON ---
DATE OF CONSULTATION: 07/15/2019 HISTORY OF PRESENT ILLNESS: This is a very pleasant 83-year-old male with bronchoalveolar carcinoma involving both lower lobes. He presented with respiratory distress and was intubated. I was consulted to assist in his management. PAST MEDICAL HISTORY: 1. Remarkable for recent intubation after developing respiratory distress at night. 2. Diagnosis of bronchoalveolar carcinoma this year. 3. History of atrial fibrillation. 4. History of hypertension. 5. History of lipid disorder. 6. History of coronary artery bypass grafting in the past. 7. Mitral regurgitation and aortic stenosis, neither of which is severe. FAMILY HISTORY: Negative for lung disease in early age. REVIEW OF SYSTEMS: Not obtainable. PHYSICAL EXAMINATION: VITAL SIGNS: Heart rate in the 70s, blood pressure 108/55, respiratory rates in the 20s, oximetry is 100%. Temperature is 100.4 HEAD AND NECK: Unremarkable. LUNGS: Remarkable for bibasilar crackles. HEART: Regular rhythm. S1 and S2 are normal. Grade 2/6 systolic murmur. ABDOMEN: Soft and nontender. EXTREMITIES: Without clubbing, cyanosis, or edema. LABORATORY DATA: White count 13.2, hemoglobin 12.6, platelets 155. Sodium 132, potassium 4, chloride 92, bicarb 34, BUN 18, creatinine 0.7. IMPRESSION: Respiratory failure associated with bronchoalveolar carcinoma. I suspect that his decompensation tonight are related to mucus plugging combined with deconditioning. His prognosis for any type of long-term survival is quite poor. Critical care time 35 min. Job ID: [id number] MTDD
--- NOTE | 2019-07-15 07:56 | RAD ---
PORTABLE SUPINE CHEST: DATE: 07/15/2019. PROVIDED CLINICAL HISTORY: Respiratory insufficiency. FINDINGS: Comparison 07/14/2019. Interval placement of endotracheal tube, the tip of which projects in the tanvir on of the thoracic inlet. Interval placement of enteric catheter, the tip of which overlies the left upper quadrant. Diffuse bilateral airspace disease and cardiomegaly are redemonstrated. Vascular c alcification and median sternotomy change again seen. The supine nature of the examination is not se nsitive for detection of pneumothorax. Probable pleural fluid in the right lung base. IMPRESSION: Interval support apparatus with persistent bilateral airspace disease. POS: LURDES
--- NOTE | 2019-07-15 07:57 | RAD ---
PORTABLE CHEST: DATE: 07/15/2019. PROVIDED CLINICAL HISTORY: Respiratory insufficiency. FINDINGS: Comparison examination earlier same date. Significant interval change with respect to the prior exam ination is not apparent. IMPRESSION: As above. POS: LURDES
[2019-07-15] MEDS ORDERED: Prevnar 13-Val Conj/PF 0.5 ML SYRINGE IM ONE (09:00)
--- NOTE | 2019-07-15 09:38 | PDOC.HOSPP ---
- Subjective Encounter Date: 07/15/19 Encounter Time: 09:36 Subjective: Mr. Chinchilla was seen today in follow-up respiratory failure. He is intubated. He does not respond. - Objective Vital Signs & Weight: Vital Signs (12 hours) Temp Pulse Resp BP Pulse Ox 07/15/19 08:00 24 H 07/15/19 07:54 96 07/15/19 07:34 72 26 H 96 07/15/19 07:27 73 108/55 L 07/15/19 06:00 24 H 07/15/19 04:00 24 H 07/15/19 02:30 25 H 98 07/15/19 02:00 96.2 F L 53 L Weight Weight 160 lb 11.472 oz Most Recent Monitor Data Heart Rate from ECG 69 NIBP 105/50 NIBP BP-Mean 68 Respiration from ECG 25 SpO2 98 I&O: 07/14/19 07/15/19 07/16/19 06:59 06:59 06:59 Intake Total 101 39 Output Total 625 395 Balance -524 -356 Result Diagrams: 07/14/19 21:40 07/14/19 21:40 Hospitalist ROS - Medication Medications: Active Medications Generic Name Dose Route Start Last Admin Trade Name Freq PRN Reason Stop Dose Admin Albuterol/Ipratropium 3 ml 07/15/19 07:00 07/15/19 07:34 Duoneb NEB 3 ml [id number] SURYA Administration Dopamine HCl/Dextrose 250 mls @ 0 mls/hr 07/15/19 03:00 07/15/19 03:13 Dopamine 400 Mg/D5w 250 Ml IVPB 250 mls INF SURYA Administration Protocol Titrate Methylprednisolone Sodium Succinate 40 mg 07/15/19 06:00 07/15/19 05:04 Solu-Medrol IVP 40 mg Q8HR SURYA Administration - Exam Eye: PERRL Heart: RRR, no murmur, no gallops, no rubs, normal peripheral pulses Respiratory: no wheezes (+ coarse breath sounds bilaterally) Gastrointestinal: soft, non-tender, non-distended, normal bowel sounds Extremities: 2+ LE edema (+ Bilateral pitting edema in both lower extremities) Hosp A/P (1) Acute respiratory failure with hypoxia Code(s): J96.01 - ACUTE RESPIRATORY FAILURE WITH HYPOXIA Status: Acute (2) Afib Code(s): I48.91 - UNSPECIFIED ATRIAL FIBRILLATION Status: Chronic Qualifiers: Atrial fibrillation type: paroxysmal Qualified Code(s): I48.0 - Paroxysmal atrial fibrillation (3) Bronchoalveolar carcinoma Code(s): C34.90 - MALIGNANT NEOPLASM OF UNSP PART OF UNSP BRONCHUS OR LUNG Status: Chronic (4) Coronary artery disease Code(s): I25.10 - ATHSCL HEART DISEASE OF [place] CORONARY ARTERY W/O ANG PCTRS Status: Chronic Qualifiers: Coronary Disease-Associated Artery/Lesion type: bypass graft [place] vs. 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
[2019-07-15] MEDS: Enoxaparin Sodium 40 MG/0.4 ML SYRINGE SC SCH (09:44)
[2019-07-15] MEDS ORDERED: Acetaminophen 650 MG/20.3 ML UDCUP PO PRN (13:45)
--- NOTE | 2019-07-15 14:10 | PDOC.PALCO ---
Palliative Care Consult - Consult Details Requesting Physician: Dr Anderson Reason for Consult: goals of care, family support - Pertinent HPI 83 year old male who is familiar to the Palliative Care Team. He has a history of adenocarcinoma of the lung and is on immunotherapy, also with significant pulmonary and cardiac disease. Mr Chinchilla lives in a private setting with his . He O2 dependent on 6 L O2 in the home setting. He was reported to have an increase in lower extremity edema with increase and weakness and lethargy and presented to the emergency room for further evaluation. At presentation to the emergency room he continued to deteriorate and was intubated and started on levophed secondary to hypotension. Admitted to CCU for further medical management. - Pertinent PMH Atrial Fib, Lung cancer, Chronic combined heart failure, hypertension, CAD, Mitral regurgitation, aortic stenosis. - Social History Smoking Status: Former smoker Smoking: quit greater than 1 year Alcohol Use: none Drug Use History: none Living Situation: independent - Medications MAR Reviewed: Yes - Allergies Allergies/Adverse Reactions: Allergies Allergy/AdvReac Type Severity Reaction Status Date / Time No Known Allergies Allergy Verified 05/02/18 16:25 - Subjective Mechanically ventilated, non-responsive - ROS Non Response: due to endotracheal tube, due to mental status - Objective Vital Signs: Vital Signs - Most Recent Temp Pulse Resp BP Pulse Ox 96.2 F L 78 25 H 116/52 L 96 07/15/19 02:00 07/15/19 14:02 07/15/19 12:54 07/15/19 14:02 07/15/19 12:54 Palliative Performance Scale: 20 - Physical Exam Constitutional: encephalitic, ill appearing HEENT: moist MMs, sclera anicteric Deviation from normal: Adventicious lung sounds bilaterally, mechanically ventilated Cardiovascular: no significant murmur, RRR Gastrointestinal: soft Deviation from normal: mild distention Genitourinary: cates catheter Musculoskeletal: no cyanosis, edema present Deviation from normal: sedated Skin: cap refill <2 seconds, bruising, fragile Deviation from normal: Encephalopathic - Problem List (1) LEDY (acute kidney injury) Code(s): N17.9 - ACUTE KIDNEY FAILURE, UNSPECIFIED Status: Acute (2) Acute respiratory failure with hypoxia Code(s): J96.01 - ACUTE RESPIRATORY FAILURE WITH HYPOXIA Status: Acute (3) Diastolic heart failure Code(s): I50.30 - UNSPECIFIED DIASTOLIC (CONGESTIVE) HEART FAILURE Status: Acute Qualifiers: Heart failure chronicity: acute on chronic Qualified Code(s): I50.33 - Acute on chronic diastolic (congestive) heart failure (4) Palliative care encounter Code(s): Z51.5 - ENCOUNTER FOR PALLIATIVE CARE Status: Acute (5) Respiratory failure requiring intubation Code(s): J96.90 - RESPIRATORY FAILURE, UNSP, UNSP W HYPOXIA OR HYPERCAPNIA Status: Acute (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 - MALIGNANT NEOPLASM OF UNSP PART OF UNSP BRONCHUS OR LUNG Status: Chronic - Plan/Recommendations Plan: Assessed patient. Communicated with Dr Butler and Dr Anderson. Emotional support and therapeutic listening to patient . Leandro Iverson RNspice cleaner communicated also with , Dr Cadena who is the PCP for Mr Chinchilla is wanting to have Mrs Chinchilla come to the hospital to discuss end of life care in relation to her and continued decline and fragile state. Will attempt to arrange a family meeting to discuss goal of care and communicate with Dr Anderson. [70] minutes spent on this encounter with >50% of the time in counseling and coordination of care. Thank you for this very appropriate consult.
--- NOTE | 2019-07-15 17:43 | CON ---
DATE OF CONSULTATION: REASON FOR CONSULTATION: Lung cancer. HISTORY OF PRESENT ILLNESS: Mr. Chinchilla is a pleasant 83-year-old gentleman with a history of CHF, COPD, and stage IV adenocarcinoma of the lung. He has bilateral pulmonary disease, but no other signs of metastatic disease. He is currently taking Xalkori oral immunotherapy. He presented to the emergency room with worsening bilateral lower extremity edema. He is on 6 L nasal cannula at home. He was brought to the emergency room for his shortness of breath and lower extremity edema. In the ER, he continued to decline and required intubation. A central line was placed for Levophed pressors due to hypotension. He was admitted to the ICU. He was recently discharged from this facility several weeks ago, where he was intubated for respiratory failure related to mucus plugging. He was on a pressor support during that hospitalization as well. He also had CPR during that visit. He remains on the ventilator in the ICU. Levophed has been weaned off. He remains lightly sedated with fentanyl drip. He does not follow commands, but appears to be moving all extremities spontaneously. PAST MEDICAL HISTORY: 1. 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 2. Congestive heart failure. 3. COPD with chronic hypoxia, on home O2. 4. Hypertension. 5. Coronary artery disease. 6. AFib. PAST SURGICAL HISTORY: 1. Open heart surgery. 2. Lung biopsy. 3. Cardiac cath. ALLERGIES: NO KNOWN DRUG ALLERGIES. HOME MEDICATIONS: 1. Aspirin. 2. Atorvastatin. 3. Carvedilol. 4. Dexamethasone. 5. Ecotrin. 6. Furosemide. 7. Hydralazine. 8. Lorazepam. 9. Losartan. 10. Omeprazole. 11. Tramadol. 12. Xalkori. FAMILY HISTORY: Mother had colon cancer. He has a brother with T-cell lymphoma. SOCIAL HISTORY: , has 2 children. Lives with his . 30 pack-year history of smoking. No alcohol or illicit drug use. REVIEW OF SYSTEMS: Unable to obtain secondary to ventilation. PHYSICAL EXAMINATION: VITAL SIGNS: Temperature is 100.4, pulse is 78, respiratory rate is 25, and BP is 116/52. GENERAL: This is a sedated individual on the vent, in no acute distress. HEENT: Normocephalic and atraumatic. NECK: Supple. CV: Regular rate and rhythm. LUNGS: He has rhonchi throughout. ABDOMEN: Mildly distended and soft. Bowel sounds are positive. EXTREMITIES: He has 2 to 3+ bilateral lower extremity edema. SKIN: No rash. HEMATOLOGIC: No petechiae or purpura. NEUROLOGIC: He is sedated with fentanyl drip. PERTINENT LABORATORY DATA AND X-RAYS: Current WBCs are 13.2, hemoglobin 12.6, hematocrit 39.7, and platelet count is 155,000. He has 87% neutrophils and 5% lymphocytes. Sodium 132, potassium 4.0, chloride 92, CO2 is 34, BUN is 18, creatinine 0.79, lactic acid 0.8, calcium 8.7, bilirubin 0.8, AST is 29, ALT is 39, alkaline phosphatase is 134. CK MB is 6.5, troponin 0.056, and BNP is 490. Serum total protein is 6.2, albumin 3.2, and globulin 3. Cortisol is 36. Chest x-ray shows cardiomegaly, vascular congestion, bilateral effusions, and bibasilar atelectasis with infiltrates from edema. ASSESSMENT: 1. Respiratory failure. 2. Stage IV lung cancer. 3. Congestive heart failure. 4. Deconditioning. DISCUSSION: The patient remains on ventilator. Dr. Deras has seen the patient and is managing his vent. He feels that it is likely secondary to mucus plugging as well as deconditioning. Palliative Care has seen the patient and discussing advance directives with the . His Xalkori has been held while he is on the ventilator. Case has been discussed with Dr. Butler. We will follow along with his hospitalization. Thank you for the consult. Job ID: [id number]
--- NOTE | 2019-07-15 18:26 | CON ---
DATE OF CONSULTATION: HISTORY OF PRESENT ILLNESS: Miguel Chinchilla is a pleasant 83-year-old white male with adenocarcinoma of both lower lobes of his lungs. He has now had a 2nd respiratory arrest within the last 2 weeks. Please see my dictation from 06/26, which outlines his full cardiac history. He now presents with increased shortness of breath, acidotic, and hypercapnic and was intubated. At the current time, he is sedated and intubated. PAST MEDICAL HISTORY: Please see previous dictation. PHYSICAL EXAMINATION: VITAL SIGNS: Blood pressure 114/51, pulse of 76 and irregularly irregular and atrial fibrillation. CHEST: Crackles at the bases. CARDIOVASCULAR: S1 and S2 are normal without any S3 or S4. There was a 1/6 to 2/6 systolic murmur. ABDOMEN: Normal bowel sounds without tenderness. EXTREMITIES: No clubbing or cyanosis. There is 1+ pedal edema. NEUROLOGIC: The patient is sedated. LABORATORY DATA: EKG revealed atrial fibrillation with rate of 44 per minute, nonspecific interventricular conduction delay, probable old inferior infarction. A pH 7.23, pCO2 of 76.6, and pO2 of 90.9. Hemoglobin 12.6, hematocrit 39.7, white count 13,200, and platelets 155,000. Troponin-I 0.057. Sodium 132, potassium 4.0, chloride 92, carbon dioxide 34, BUN 18, and creatinine 0.79. TSH is normal. IMPRESSION: 1. Recurrent respiratory arrest secondary to his adenocarcinoma of the lung and mucus plugging. 2. Adenocarcinoma of both lower lobes. 3. Chronic atrial fibrillation over the last 1 to 2 months. He has not been anticoagulated due to his multiple other health problems. 4. Bradycardia with the atrial fibrillation. I do not feel that this is his primary insult in that the main problem is his respiratory status. 5. Status post coronary artery bypass graft x5 with grafts patent in 04/2018. 6. Vet-[id number] myocardial infarction, type 2. 7. History of systolic and diastolic heart failure. 8. Mild aortic stenosis. 9. Hypercholesterolemia. 10. Hypertension. 11. Former smoker. PLAN: Mr. Chinchilla will continue to be supported. I do not feel that he would significantly benefit from pacemaker placement when his primary insult with these episodes is respiratory. We will continue to follow the patient with you. Also, another consideration should be given to hospice care for this gentleman. Job ID: [id number]
[2019-07-15] MEDS: Propofol 1,000 MG/100 ML VIAL IV PRN (22:15)
[2019-07-16 05:03] LABS: Anion Gap 14 mmol/L (10-20); BUN (Urea Nitrogen) 18 mg/dL (8.4-25.7); Calc. Creatinine Clearance 65 mL/min (70-130); Calcium 8.8 mg/dL (7.8-10.44); Carbon Dioxide 29 mmol/L (23-31); Chloride 97 mmol/L (98-107); Estimated GFR-MDRD 81; Glucose 152 mg/dL (83-110); Potassium 3.4 mmol/L (3.5-5.1); Sodium 137 mmol/L (136-145)
[2019-07-16 05:19] LABS: Band 17 % (5-11); Hemoglobin 11.9 g/dL (14.0-18.0); Lymphocytes 5 % (21-51); MDiff Complete? YES; Mean Corpuscular HGB CONC 32.5 g/dL (32.0-36.0); Mean Corpuscular Hemoglobin 29.1 pg (27.0-31.0); Mean Corpuscular Volume 89.4 fL (78.0-98.0); Mean Platelet Volume 7.6 fL (7.4-10.4); Monocytes 2 % (0-10); Neutrophil 76 % (42-75); Platelet Count 142 thou/uL (130-400); RBC Distribution Width 14.6 % (11.5-14.5); White Blood Cell (WBC) Count 10.3 thou/uL (4.8-10.8)
[2019-07-16] MEDS: methylPREDNISolone Sod Succ 40 MG VIAL IVP SCH ×2 (05:36→13:33)
[2019-07-16 07:03] LABS: Actual Bicarbonate (HCO3a) 26.3 mEq/L (22-28); Base Excess (BEa) 5.2 mEq/L (-2.0 to +3.0); CO2 Tension 28.3 mmHg (35.0-45.0); Calcium, Ionized 1.16 mmol/L (1.12-1.30); Carboxyhemoglobin (COHb) 0.6 gm% (0.0-3.0); Hemoglobin (Hb) 12.6 g/dL (14.0-18.0)
[2019-07-16 07:05] LABS: ALV-art Gradient 269.625 (0-20); O2 Tension (PaO2) 51.5 mmHg (> 60.0); Puncture Site LR; pH, Arterial 7.59 (7.35-7.45)
--- NOTE | 2019-07-16 08:00 | RAD ---
RADIOGRAPH CHEST 1 VIEW: DATE: 07/16/2019 TIME: 5:02 AM HISTORY: 83-year-old male in respiratory failure COMPARISON: 07/15/2019 FINDINGS: Endotracheal tube, esophagogastric tube, cardiomegaly, pulmonary vascular congestion, mixed interstit ial and alveolar infiltrates which may represent pulmonary edema (pneumonia not ruled out for the alveolar infiltrates) and pleural effusions, are all unchanged. No pneumothorax. IMPRESSION: 1. No interval change. 2. Cardiomegaly and congestive heart failure with pulmonary edema and pleural effusions. 3. Airspace densities bilaterally which could be atelectasis, pulmonary alveolar edema, or pneumonia.
[2019-07-16] MEDS: Lorazepam 2 MG/ML VIAL SLOW IVP PRN ×3 (08:51→22:08)
[2019-07-16] MEDS: Propofol 1,000 MG/100 ML VIAL IV PRN (09:08)
[2019-07-16] MEDS: Enoxaparin Sodium 40 MG/0.4 ML SYRINGE SC SCH (09:10)
--- NOTE | 2019-07-16 10:25 | PDOC.HOSPP ---
- Subjective Encounter Date: 07/16/19 Encounter Time: 10:24 Subjective: Mr. Chinchilla was seen today in follow-up of respiratory failure. He is intubated. He was a bit agitated this morning per nurse report. Pulling at his ET tube. He is moving all extremities, and follows a few simple commands. - Objective Vital Signs & Weight: Vital Signs (12 hours) Temp Pulse Resp BP Pulse Ox 07/16/19 10:00 22 H 07/16/19 08:00 99.1 F 24 H 100 07/16/19 06:58 83 128/78 07/16/19 06:00 25 H 07/16/19 04:50 81 07/16/19 04:00 25 H 07/16/19 02:00 25 H 95 07/16/19 01:39 80 25 H 95 07/16/19 01:38 74 07/16/19 00:00 100.2 F H 25 H Weight Admit Weight 160 lb Weight 155 lb 13.869 oz Most Recent Monitor Data Heart Rate from ECG 77 NIBP 121/63 NIBP BP-Mean 82 Respiration from ECG 8 SpO2 100 I&O: 07/15/19 07/16/19 07/17/19 06:59 06:59 06:59 Intake Total 101 395.7 123.2 Output Total 625 1744 180 Balance -524 -1348.3 -56.8 Result Diagrams: 07/16/19 03:55 07/16/19 03:55 Hospitalist ROS - Medication Medications: Active Medications Generic Name Dose Route Start Last Admin Trade Name Freq PRN Reason Stop Dose Admin Albuterol/Ipratropium 3 ml 07/15/19 07:00 07/16/19 06:57 Duoneb NEB 3 ml [id number] SURYA Administration Enoxaparin Sodium 40 mg 07/15/19 09:00 07/16/19 09:10 Lovenox SC 40 mg 0900 SURYA Administration Fentanyl Citrate 2,000 mcg/ 100 mls @ 0 mls/hr 07/15/19 00:38 07/15/19 22:01 Sodium Chloride IV 08/14/19 00:38 100 mls INF SURYA Administration Protocol Per Protocol Potassium Chloride 40 meq/ 100 mls @ 50 mls/hr 07/15/19 01:33 07/16/19 05:55 Device IVPB 100 mls ASDIR PRN Administration FOR SERUM K+ 2.5 - 3.5 Dopamine HCl/Dextrose 250 mls @ 0 mls/hr 07/15/19 03:00 07/15/19 21:22 Dopamine 400 Mg/D5w 250 Ml IVPB 250 mls INF SURYA Administration Protocol Titrate Lorazepam 2 mg 07/15/19 01:32 07/16/19 08:51 Ativan SLOW IVP 08/14/19 01:32 2 mg Q1H PRN Administration Breakthrough agitation Methylprednisolone Sodium Succinate 40 mg 07/15/19 06:00 07/16/19 05:36 Solu-Medrol IVP 40 mg Q8HR SURYA Administration Propofol 1,000 mg 07/15/19 01:32 07/16/19 09:08 Diprivan IV 08/14/19 01:32 1,000 mg INF PRN Administration TO ACHIEVE GOAL RASS Protocol - Exam Eye: PERRL Heart: RRR, no murmur, no gallops, no rubs, normal peripheral pulses Respiratory: rhonchi (+ coarse breath sounds) Gastrointestinal: soft, non-tender, non-distended, normal bowel sounds Extremities: no cyanosis, 1+ LE edema Hosp A/P (1) Acute respiratory failure with hypoxia Code(s): J96.01 - ACUTE RESPIRATORY FAILURE WITH HYPOXIA Status: Acute (2) Afib Code(s): I48.91 - UNSPECIFIED ATRIAL FIBRILLATION Status: Chronic Qualifiers: Atrial fibrillation type: paroxysmal Qualified Code(s): I48.0 - Paroxysmal atrial fibrillation (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 transplanted heart: 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
[2019-07-16] MEDS ORDERED: Pantoprazole 40 MG VIAL IVP SCH (10:30)
--- NOTE | 2019-07-16 11:27 | PDOC.MOPN ---
Interval History: remains on vent, sedated. Anxious when sedation lifted - Vital Signs Vital Signs: Vital Signs (12 hours) Temp Pulse Resp BP Pulse Ox 07/16/19 10:48 76 127/61 07/16/19 10:00 22 H 07/16/19 08:00 99.1 F 24 H 100 07/16/19 06:58 83 128/78 07/16/19 06:00 25 H 07/16/19 04:50 81 07/16/19 04:00 25 H 07/16/19 02:00 25 H 95 07/16/19 01:39 80 25 H 95 07/16/19 01:38 74 07/16/19 00:00 100.2 F H 25 H Weight Admit Weight 160 lb Weight 155 lb 13.869 oz Most Recent Monitor Data Heart Rate from ECG 78 NIBP 135/68 NIBP BP-Mean 90 Respiration from ECG 21 SpO2 98 - Physical Exam General: Other (fentanyl, diprivan gtt) Lungs: Clear to auscultation, Normal air movement Cardiovascular: Regular rate, Normal S1, Normal S2, No murmurs, Gallops, Rubs Abdomen: Normal bowel sounds, Soft, No tenderness, No hepatospenomegaly, No masses Extremities: Other (2+ BLE edema) - Labs Result Diagrams: 07/16/19 03:55 07/16/19 03:55 Lab results: Laboratory Results - last 24 hr 07/16/19 03:55: WBC 10.3, RBC 4.10 L, Hgb 11.9 L, Hct 36.6 L, MCV 89.4, MCH 29.1 , MCHC 32.5, RDW 14.6 H, Plt Count 142, MPV 7.6, Neutrophils % (Manual) 76 H, Band Neuts % (Manual) 17 H, Lymphocytes % (Manual) 5 L, Monocytes % (Manual) 2 07/16/19 03:55: Sodium 137, Potassium 3.4 L, Chloride 97 L, Carbon Dioxide 29, Anion Gap 14, BUN 18, Creatinine 0.90, Estimated GFR (MDRD) 81, Glucose 152 H, Calcium 8.8 07/15/19 06:56: Specimen Type ARTERIAL, Puncture Site LR, Bicarbonate Actual 26.3, ABG pH 7.59 H*, ABG pCO2 28.3 L, ABG pO2 51.5 L*, ABG O2 Sat Calc/Crystal 90.0 L, ABG O2 Content 15.8 L, ABG Base Excess 5.2 H, ABG Hematocrit 37.0 L, ABG Hemoglobin 12.6 L, ABG Oxyhemoglobin 89.2 L, ABG Carboxyhemoglobin 0.6, ABG Methemoglobin 0.30, ABG Deoxyhemoglobin 9.9 H, Minh Test POSITIVE, A-a O2 Gradient 269.625 H, Sodium 135, Potassium 4.00, Chloride 98, Ionized Calcium 1.16, Mode of Support SIMV, % Minute Volume 13.1, Mechanical Rate 25, Inspired O2 50, Tidal Volume 500, Pressure Support 10, PEEP or CPAP 5.0 Status: lab reviewed by me A/P - Problem (1) Acute respiratory failure with hypoxia Current Visit: No Code(s): J96.01 - ACUTE RESPIRATORY FAILURE WITH HYPOXIA Status: Acute (2) Bronchoalveolar carcinoma Current Visit: No Code(s): C34.90 - MALIGNANT NEOPLASM OF UNSP PART OF UNSP BRONCHUS OR LUNG Status: Chronic - Plan Plan: 1. hold Xalkori while intubated 2. PCT setting up family meeting with spouse 3. Wean as tolerated
--- NOTE | 2019-07-16 13:26 | EKG ---
Test Reason : Blood Pressure : / mmHG Vent. Rate : 059 BPM Atrial Rate : 063 BPM P-R Int : 000 ms QRS Dur : 134 ms QT Int : 456 ms P-R-T Axes : 000 -08 159 degrees QTc Int : 451 ms Atrial fibrillation with slow ventricular response Left ventricular hypertrophy with QRS widening Inferior infarct , age undetermined T wave abnormality, consider lateral ischemia Abnormal ECG Confirmed by PRAFUL LLOYD ([id number]), field map editor BINH AYALA ([id number]) on 07/16/2019 1:25:46 PM Referred By: Confirmed By:PRAFUL LLOYD
[2019-07-16] MEDS: DOPamine 400 MG/D5W 250 ML 250 ML IVPB SCH (14:47)
--- NOTE | 2019-07-16 14:57 | EKG ---
Test Reason : Blood Pressure : / mmHG Vent. Rate : 044 BPM Atrial Rate : 394 BPM P-R Int : 000 ms QRS Dur : 138 ms QT Int : 548 ms P-R-T Axes : 000 -01 184 degrees QTc Int : 468 ms Atrial fibrillation with slow ventricular response Non-specific intra-ventricular conduction block Inferior infarct , age undetermined T wave abnormality, consider lateral ischemia or digitalis effect No STEMI Abnormal ECG Confirmed by DAVIDE ZAVALA M.D. ([id number]), online content editor BINH AYALA ([id number]) on 07/16/2019 2:57:17 PM Referred By: Confirmed By:DAVIDE ZAVALA M.D.
--- NOTE | 2019-07-16 16:39 | PRG ---
DATE OF SERVICE: 07/16/2019 SUBJECTIVE: Miguel Chinchilla remains mechanically ventilated. We have decreased his ventilatory support today. OBJECTIVE: VITAL SIGNS: His vital signs remained stable. Heart rate was in the 70s, blood pressure 103/59, respiratory rate is in the 20s, and oximetry is 100%. LUNGS: Remarkable for crackles at his bases as always. HEART: Regular rhythm. ABDOMEN: Soft. EXTREMITIES: Without edema. IMPRESSION: Recurrent acute respiratory failure associated with bilateral lower lobe malignancies. I do not feel that this is a primary cardiac event or an infectious event. He has no history of obstructive lung disease. I met with the by phone and had a lengthy telephone conversation with her. I recommended a do not resuscitate status. I also recommended discharge home with hospice. Mr. Chinchilla has become one of my favorite patients. It is very hard to make these recommendations, but given that he has been mechanically ventilated twice in the last month, I really do not feel that his prognosis is even guarded at best. I suspect that the chemotherapy may be slowing malignant process, but his weakness and deconditioning are more of an issue now than it has been 1 to 2 months ago. His very quickly stated that he could barely walk with a walker at home prior to this admission. I believe he has no strength reserve, and unfortunately, hospice is probably the best option for him. I am hopeful that we can wean to extubation within 24 to 48 hours. CRITICAL CARE TIME: 30 minutes. Job ID: [id number]
[2019-07-16] MEDS: Sodium Chloride 0.9% 1,000 ML IV PRN ×2 (21:33→22:32)
[2019-07-16] MEDS: Pantoprazole 40 MG VIAL IVP SCH (21:37)
[2019-07-17 04:56] LABS: Band 19 % (5-11); Hemoglobin 10.6 g/dL (14.0-18.0); Lymphocytes 2 % (21-51); MDiff Complete? YES; Mean Corpuscular HGB CONC 32.8 g/dL (32.0-36.0); Mean Corpuscular Hemoglobin 30.3 pg (27.0-31.0); Mean Corpuscular Volume 92.4 fL (78.0-98.0); Mean Platelet Volume 7.1 fL (7.4-10.4); Monocytes 3 % (0-10); Neutrophil 76 % (42-75); Platelet Count 117 thou/uL (130-400); Platelet Morphology Comment Appears Decreased; RBC Distribution Width 14.9 % (11.5-14.5); Red Blood Cell (RBC) Count 3.51 mill/uL (4.70-6.10); White Blood Cell (WBC) Count 12.9 thou/uL (4.8-10.8)
[2019-07-17 04:57] LABS: Anion Gap 10 mmol/L (10-20); BUN (Urea Nitrogen) 21 mg/dL (8.4-25.7); Calc. Creatinine Clearance 64 mL/min (70-130); Calcium 8.1 mg/dL (7.8-10.44); Carbon Dioxide 30 mmol/L (23-31); Chloride 104 mmol/L (98-107); Estimated GFR-MDRD 82; Glucose 110 mg/dL (83-110); Potassium 3.8 mmol/L (3.5-5.1); Sodium 140 mmol/L (136-145)
[2019-07-17] MEDS: Pantoprazole 40 MG VIAL IVP SCH ×2 (08:24→21:09)
[2019-07-17] MEDS: Enoxaparin Sodium 40 MG/0.4 ML SYRINGE SC SCH (08:24)
[2019-07-17] MEDS: methylPREDNISolone Sod Succ 40 MG VIAL IVP SCH (08:24)
--- NOTE | 2019-07-17 08:26 | PDOC.HOSPP ---
- Subjective Encounter Date: 07/17/19 Encounter Time: 08:21 Subjective: Mr. Chinchilla was seen today in follow-up of respiratory failure. He is currently on the ventilator. He is awake, and pulling at the restraints. No problems reported overnight. - Objective Vital Signs & Weight: Vital Signs (12 hours) Temp Pulse Resp BP Pulse Ox 07/17/19 08:00 98.6 F 26 H 07/17/19 07:14 75 99/56 L 07/17/19 06:00 11 L 07/17/19 04:00 99.1 F 22 H 07/17/19 02:15 73 103/55 L 07/17/19 02:00 13 07/17/19 00:09 76 99/55 L 07/17/19 00:00 99.4 F 15 90 L 07/16/19 22:00 20 07/16/19 21:54 64 75/38 L Weight Admit Weight 160 lb Weight 159 lb 6.307 oz Most Recent Monitor Data Heart Rate from ECG 89 NIBP 116/72 NIBP BP-Mean 86 Respiration from ECG 15 SpO2 94 I&O: 07/16/19 07/17/19 07/18/19 06:59 06:59 06:59 Intake Total 395.7 2300.3 Output Total 1744 2137 20 Balance -1348.3 163.3 -20 Result Diagrams: 07/17/19 04:25 07/17/19 04:25 Hospitalist ROS - Medication Medications: Active Medications Generic Name Dose Route Start Last Admin Trade Name Freq PRN Reason Stop Dose Admin Albuterol/Ipratropium 3 ml 07/15/19 07:00 07/17/19 07:14 Duoneb NEB 3 ml [id number] SURYA Administration Enoxaparin Sodium 40 mg 07/15/19 09:00 07/16/19 09:10 Lovenox SC 40 mg 0900 SURYA Administration Fentanyl Citrate 2,000 mcg/ 100 mls @ 0 mls/hr 07/15/19 00:38 07/15/19 22:01 Sodium Chloride IV 08/14/19 00:38 100 mls INF SURYA Administration Protocol Per Protocol Potassium Chloride 40 meq/ 100 mls @ 50 mls/hr 07/15/19 01:33 07/16/19 05:55 Device IVPB 100 mls ASDIR PRN Administration FOR SERUM K+ 2.5 - 3.5 Sodium Chloride 1,000 mls @ 0 mls/hr 07/16/19 21:08 07/16/19 22:32 Normal Saline 0.9% IV 1,000 mls .Q0M PRN Administration TO KEEP MAP >65 As Directed Lorazepam 2 mg 07/15/19 01:32 07/16/19 22:08 Ativan SLOW IVP 08/14/19 01:32 2 mg Q1H PRN Administration Breakthrough agitation Pantoprazole Sodium 40 mg 07/16/19 21:00 07/16/19 21:37 Protonix IVP 40 mg Q12HR SURYA Administration Propofol 1,000 mg 07/15/19 01:32 07/16/19 09:08 Diprivan IV 08/14/19 01:32 1,000 mg INF PRN Administration TO ACHIEVE GOAL RASS Protocol - Exam Eye: PERRL Heart: RRR, no murmur, no gallops, no rubs, normal peripheral pulses Respiratory: no wheezes (+ coarse breath sounds, and occasional rhonchi) Gastrointestinal: soft, non-tender, non-distended, normal bowel sounds, no palpable masses, no hepatomegaly Extremities: no cyanosis, no edema Hosp A/P (1) Acute respiratory failure with hypoxia Code(s): J96.01 - ACUTE RESPIRATORY FAILURE WITH HYPOXIA Status: Acute (2) Afib Code(s): I48.91 - UNSPECIFIED ATRIAL FIBRILLATION Status: Chronic Qualifiers: Atrial fibrillation type: paroxysmal Qualified Code(s): I48.0 - Paroxysmal atrial fibrillation (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
[2019-07-17] MEDS: Lorazepam 2 MG/ML VIAL SLOW IVP PRN ×5 (09:14→21:59)
--- NOTE | 2019-07-17 11:13 | PRG ---
DATE OF SERVICE: SUBJECTIVE: Miguel Chinchilla was sedated for ventilation. I met with family again this morning and explained the issues that are surrounding in his care. I have recommended again do not resuscitate status. His code status was reversed last night. OBJECTIVE: VITAL SIGNS: Heart rates in the 90s, blood pressure 118/76, respiratory rates in 10. Oximetry is 90%. LUNGS: Unchanged. HEART: Unchanged. ABDOMEN: Unchanged. LABORATORY DATA: White count is 12.9, hemoglobin 10.6, platelets 117. Electrolytes are normal. IMPRESSION: Bronchoalveolar carcinoma with recurrent respiratory failure, this time most likely related to muscle weakness and inability to clear secretions. I would support extubation. No re-intubation. Do not resuscitate status. I have explained to the family that he can continue with his oral chemotherapy at home, but the frequency of respiratory failure leads me to believe that he is not surviving this secondary to progressive muscle weakness. Answered all the family's questions. Critical care time 35 min. Job ID: [id number] MTDD
--- NOTE | 2019-07-17 11:18 | PDOC.MOPN ---
Interval History: comfortable on vent - Vital Signs Vital Signs: Vital Signs (12 hours) Temp Pulse Resp BP Pulse Ox 07/17/19 10:49 91 118/76 07/17/19 10:00 10 L 07/17/19 08:00 98.6 F 26 H 93 L 07/17/19 07:14 75 99/56 L 07/17/19 06:00 11 L 07/17/19 04:00 99.1 F 22 H 07/17/19 02:15 73 103/55 L 07/17/19 02:00 13 07/17/19 00:09 76 99/55 L 07/17/19 00:00 99.4 F 15 90 L Weight Admit Weight 160 lb Weight 159 lb 6.307 oz Most Recent Monitor Data Heart Rate from ECG 85 NIBP 100/55 NIBP BP-Mean 70 Respiration from ECG 19 SpO2 95 - Physical Exam General: No acute distress HEENT: Atraumatic Lungs: Clear to auscultation Cardiovascular: Other (irregular) Abdomen: Normal bowel sounds, Soft, No tenderness, No hepatospenomegaly, No masses Neurological: Normal speech Psych/Mental Status: Mental status NL - Labs Result Diagrams: 07/17/19 04:25 07/17/19 04:25 Lab results: Laboratory Results - last 24 hr 07/17/19 04:25: WBC 12.9 H, RBC 3.51 L, Hgb 10.6 L, Hct 32.4 L, MCV 92.4, MCH 30.3, MCHC 32.8, RDW 14.9 H, Plt Count 117 L, MPV 7.1 L, Neutrophils % (Manual) 76 H, Band Neuts % (Manual) 19 H, Lymphocytes % (Manual) 2 L, Monocytes % ( Manual) 3, Plt Morphology Comment Appears Decreased L, Acanthocytes (Spur) SLIGHT = 1-5 cells 07/17/19 04:25: Sodium 140, Potassium 3.8, Chloride 104, Carbon Dioxide 30, Anion Gap 10, BUN 21, Creatinine 0.89, Estimated GFR (MDRD) 82, Glucose 110, Calcium 8.1 Status: lab reviewed by me A/P - Problem (1) Acute respiratory failure with hypoxia Current Visit: No Code(s): J96.01 - ACUTE RESPIRATORY FAILURE WITH HYPOXIA Status: Acute (2) Bronchoalveolar carcinoma Current Visit: No Code(s): C34.90 - MALIGNANT NEOPLASM OF UNSP PART OF UNSP BRONCHUS OR LUNG Status: Chronic - Plan Plan: 1. IV sedation stopped 2. weaning as tolerated per Dr. Deras 3. Full code at this time 4. Dr. Butler with discuss code status and treatment plan with spouse.
--- NOTE | 2019-07-17 15:57 | PDOC.PALPN ---
Palliative Progress Note - Subjective Intubated/mechanical ventilation. Sedated. Family to bedside. - Objective Vital Signs: Vital Signs - Most Recent Temp Pulse Resp BP Pulse Ox 98.7 F 71 21 H 106/56 L 93 L 07/17/19 15:00 07/17/19 15:34 07/17/19 14:00 07/17/19 15:34 07/17/19 08:00 - Physical Exam Constitutional: encephalitic, ill appearing HEENT: EOMI, moist MMs, sclera anicteric Deviation from normal: Mildly adventicious lung sounds, mechanical ventilation Cardiovascular: RRR Gastrointestinal: non-tender, incontinent Genitourinary: cates catheter Musculoskeletal: pulses present Neurology: moves all 4 limbs Skin: cap refill <2 seconds Deviation from normal: sedated - Assessment (1) LEDY (acute kidney injury) Code(s): N17.9 - ACUTE KIDNEY FAILURE, UNSPECIFIED Current Visit: No Status : Acute (2) Acute respiratory failure with hypoxia Code(s): J96.01 - ACUTE RESPIRATORY FAILURE WITH HYPOXIA Current Visit: No Status: Acute (3) Diastolic heart failure Code(s): I50.30 - UNSPECIFIED DIASTOLIC (CONGESTIVE) HEART FAILURE Current Visit: No Status: Acute Qualifiers: Heart failure chronicity: acute on chronic Qualified Code(s): I50.33 - Acute on chronic diastolic (congestive) heart failure (4) Palliative care encounter Code(s): Z51.5 - ENCOUNTER FOR PALLIATIVE CARE Current Visit: No Status: Acute (5) Respiratory failure requiring intubation Code(s): J96.90 - RESPIRATORY FAILURE, UNSP, UNSP W HYPOXIA OR HYPERCAPNIA Current Visit: No Status: Acute (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 Palliative Care reinforced information given by Dr Deras and Dr Butler. Lengthy conversation in relation to goal of care that would be parallel to disease trajectory and inline with Mr Chinchilla wisheleazar. Family agreed to DNAR and extubtaion 07/18/2019. At the end of the conversation One of Mr Mendiola daughters expressed wanting to transition back to full resuscitation, reminded her of conversation with both Dr Butler and Dr Deras and poor outcome if any further resuscitation measures occurred. Emotional support offered and family agreed to maintain DNAR. *Extubate 07/18/[address] Deras *Family hope for Mr Chinchilla to be able to participate in decision of hospice *Currently with [facility], ultimate goal is to transition home as soon as possible with [facility], and if Mr Chinchilla desires continue with oral chemo in home setting that he already has. *Spiritual Care notified. * completed DNAR, order entered Communicated with Dr Deras, Dr Butler, and Dr Anderson of outcome of family meeting. [75] minutes spent on this encounter with >50% of the time in counseling and coordination of care. - ROS Non Response: due to endotracheal tube, due to mental status
[2019-07-18] MEDS: Lorazepam 2 MG/ML VIAL SLOW IVP PRN (03:37)
[2019-07-18 04:46] LABS: Band 10 % (5-11); Hemoglobin 10.8 g/dL (14.0-18.0); Lymphocytes 7 % (21-51); MDiff Complete? YES; Mean Corpuscular HGB CONC 31.2 g/dL (32.0-36.0); Mean Corpuscular Hemoglobin 29.2 pg (27.0-31.0); Mean Corpuscular Volume 93.7 fL (78.0-98.0); Mean Platelet Volume 7.9 fL (7.4-10.4); Monocytes 6 % (0-10); Neutrophil 77 % (42-75); Platelet Count 111 thou/uL (130-400); Platelet Morphology Comment Appears Decreased; RBC Distribution Width 14.8 % (11.5-14.5); White Blood Cell (WBC) Count 7.9 thou/uL (4.8-10.8)
[2019-07-18 04:47] LABS: Anion Gap 9 mmol/L (10-20); BUN (Urea Nitrogen) 27 mg/dL (8.4-25.7); Calc. Creatinine Clearance 67 mL/min (70-130); Calcium 8.6 mg/dL (7.8-10.44); Carbon Dioxide 32 mmol/L (23-31); Chloride 104 mmol/L (98-107); Estimated GFR-MDRD 84; Glucose 99 mg/dL (83-110); Potassium 3.8 mmol/L (3.5-5.1); Sodium 141 mmol/L (136-145)
[2019-07-18 07:01] VITALS: BP 132/71
--- NOTE | 2019-07-18 08:47 | PDOC.HOSPP ---
- Subjective Encounter Date: 07/18/19 Encounter Time: 08:46 Subjective: Mr. Chinchilla was seen today in follow-up of respiratory failure. He is intubated. He is awake and alert. - Objective Vital Signs & Weight: Vital Signs (12 hours) Temp Pulse Resp BP Pulse Ox 07/18/19 06:59 85 132/71 07/18/19 06:57 82 19 90 L 07/18/19 06:00 24 H 07/18/19 04:00 98.6 F 24 H 07/18/19 02:35 72 98/72 07/18/19 02:00 22 H 07/18/19 00:06 67 108/60 07/18/19 00:00 98.0 F 14 07/17/19 22:00 15 07/17/19 21:29 83 134/74 Weight Admit Weight 160 lb Weight 158 lb 15.253 oz Most Recent Monitor Data Heart Rate from ECG 70 NIBP 132/71 NIBP BP-Mean 91 Respiration from ECG 25 SpO2 92 I&O: 07/17/19 07/18/19 07/19/19 06:59 06:59 06:59 Intake Total 2300.3 278 Output Total 2137 560 Balance 163.3 -282 Result Diagrams: 07/18/19 03:53 07/18/19 03:53 Hospitalist ROS - Medication Medications: Active Medications Generic Name Dose Route Start Last Admin Trade Name Freq PRN Reason Stop Dose Admin Albuterol/Ipratropium 3 ml 07/15/19 07:00 07/18/19 06:57 Duoneb NEB 3 ml [id number] SURYA Administration Enoxaparin Sodium 40 mg 07/15/19 09:00 07/17/19 08:24 Lovenox SC 40 mg 0900 SURYA Administration Fentanyl Citrate 2,000 mcg/ 100 mls @ 0 mls/hr 07/15/19 00:38 07/15/19 22:01 Sodium Chloride IV 08/14/19 00:38 100 mls INF SURYA Administration Protocol Per Protocol Potassium Chloride 40 meq/ 100 mls @ 50 mls/hr 07/15/19 01:33 07/16/19 05:55 Device IVPB 100 mls ASDIR PRN Administration FOR SERUM K+ 2.5 - 3.5 Sodium Chloride 1,000 mls @ 0 mls/hr 07/16/19 21:08 07/16/19 22:32 Normal Saline 0.9% IV 1,000 mls .Q0M PRN Administration TO KEEP MAP >65 As Directed Lorazepam 2 mg 07/15/19 01:32 07/18/19 03:37 Ativan SLOW IVP 08/14/19 01:32 2 mg Q1H PRN Administration Breakthrough agitation Methylprednisolone Sodium Succinate 40 mg 07/17/19 09:00 07/17/19 08:24 Solu-Medrol IVP 40 mg DAILY SURYA Administration Pantoprazole Sodium 40 mg 07/16/19 21:00 07/17/19 21:09 Protonix IVP 40 mg Q12HR SURYA Administration Propofol 1,000 mg 07/15/19 01:32 07/16/19 09:08 Diprivan IV 08/14/19 01:32 1,000 mg INF PRN Administration TO ACHIEVE GOAL RASS Protocol - Exam Eye: PERRL Heart: RRR, no murmur, no gallops, no rubs, normal peripheral pulses Respiratory: no wheezes, no rales (But coarse breath sounds bilaterally) Gastrointestinal: soft, non-tender, non-distended, normal bowel sounds Extremities: no cyanosis, no edema Hosp A/P (1) Acute respiratory failure with hypoxia Code(s): J96.01 - ACUTE RESPIRATORY FAILURE WITH HYPOXIA Status: Acute (2) Afib Code(s): I48.91 - UNSPECIFIED ATRIAL FIBRILLATION Status: Chronic Qualifiers: Atrial fibrillation type: paroxysmal Qualified Code(s): I48.0 - Paroxysmal atrial fibrillation (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 transplanted heart: [place] heart (5) Hypertension Code(s): I10 - ESSENTIAL (PRIMARY) HYPERTENSION Status: Chronic Qualifiers: Hypertension type: essential hypertension Qualified Code(s): I10 - Essential (primary) hypertension - Plan * Acute respiratory failure- he is requiring mechanical technologist ventilation * The family has decided to make Mr. Chinchilla DNR * Plan is for extubation today * Will possibly go home on Hospice, and continue oral chemotherapy
[2019-07-18] MEDS: methylPREDNISolone Sod Succ 40 MG VIAL IVP SCH (09:34)
[2019-07-18] MEDS: Pantoprazole 40 MG VIAL IVP SCH (09:34)
[2019-07-18] MEDS: Enoxaparin Sodium 40 MG/0.4 ML SYRINGE SC SCH (09:34)
[2019-07-18] MEDS ORDERED: Morphine 4 MG/ML VIAL SLOW IVP PRN ×2 (09:56→10:30)
[2019-07-18] MEDS ORDERED: Lorazepam 2 MG/ML VIAL SLOW IVP PRN (09:56)
[2019-07-18] MEDS ORDERED: Scopolamine 1.5 mg/72 hour Patch TD SCH (10:00)
[2019-07-18 10:43] VITALS: TEMP 98.5
--- NOTE | 2019-07-21 13:14 | DIS ---
DATE OF ADMISSION: 07/14/2019 DATE OF DISCHARGE: 07/18/2019 PRIMARY CARE PHYSICIAN: Reed Cadena MD. DIAGNOSES: Include: 1. Acute hypoxic respiratory failure. 2. Bronchioloalveolar carcinoma. 3. Generalized weakness. 4. Chronic systolic heart failure. 5. Coronary artery disease. 6. Hypertension. CODE STATUS: DNR. ALLERGIES: NO KNOWN DRUG ALLERGIES. HOSPITAL COURSE: Mr. Chinchilla is a pleasant 83-year-old gentleman, who presented to the emergency room after having progressive shortness of breath at home. He was also hypoxic. It was also noted that he was having increasing lower extremity edema and feeling weak. He was brought to the emergency room, where he was found to be in respiratory distress. He was placed on a non-rebreather in the ER, however, his condition deteriorated rapidly in the ER and he required intubation. He was admitted to the ICU and his color artist was consulted. He was placed empirically on antibiotics and it was thought that he could potentially have some volume overload as well. He was treated for both volume overload and infection. He was seen by Pulmonology, as well as his data acquisition technician. He was found to have some bradyarrhythmia, but his data acquisition technician did not feel it was contributing to his overall clinical condition. He was evaluated by the Palliative Care team as well due to the advanced bronchioloalveolar cancer and his overall debilitated state. It was the opinion of his color artist, who had treated him for numerous years that this was likely the result of severe muscle weakness and inability to clear his secretions. It was felt that even if he were able to survive extubation, this would be a recurrent problem and that he had approached the end of his life with regard to the bronchoalveolar carcinoma. After much thought, the family made the decision to terminally extubate the patient. This was performed on 07/18/2019 and the patient peacefully on July 17 with family at the bedside. Job ID: [id number]
--- NOTE | 2019-07-22 13:43 | PRG ---
DATE OF SERVICE: 07/18/2019 SUBJECTIVE: Mr. Chinchilla was evaluated in the morning. He was still sedated for mechanical ventilation. OBJECTIVE: VITAL SIGNS: Stable. LUNGS: Unchanged. HEART: Unchanged. ABDOMEN: Unchanged. I met with the family again. I have explained to him that unfortunately I believe he is at the end of his life with bilateral lower lobe lung cancers. They wanted extubation for comfort. This was done after the family met with Palliative Care. He quickly. Job ID: [id number]
== END 2019-07-18 11:08 | disposition expired | DRG 208 ==
LOC: ERS 21:28 → CCU 22:59
PROVIDERS: ADMIT Internal Medicine; ATTEND Internal Medicine
PROC: 02HV33Z Insertion of Infusion Device into Superior Vena Cava, Percutaneous Approach (ICD-10-PCS; principal; 2019-07-15)
PROC: B548ZZA Ultrasonography of Superior Vena Cava, Guidance (ICD-10-PCS; 2019-07-15)
PROC: 3E043XZ Introduction of Vasopressor into Central Vein, Percutaneous Approach (ICD-10-PCS; 2019-07-15)
PROC: 0BH17EZ Insertion of Endotracheal Airway into Trachea, Via Natural or Artificial Opening (ICD-10-PCS; 2019-07-15)
PROC: 5A1945Z Respiratory Ventilation, 24-96 Consecutive Hours (ICD-10-PCS; 2019-07-15)
DX: J96.21 Acute and chronic respiratory failure with hypoxia (principal); I21.A1 Myocardial infarction type 2; G93.41 Metabolic encephalopathy; I50.43 Acute on chronic combined systolic (congestive) and diastolic (congestive) heart failure; C34.92 Malignant neoplasm of unspecified part of left bronchus or lung; C34.91 Malignant neoplasm of unspecified part of right bronchus or lung; Z66 Do not resuscitate; Z51.5 Encounter for palliative care; T17.890A Other foreign object in other parts of respiratory tract causing asphyxiation, initial encounter; I11.0 Hypertensive heart disease with heart failure; F17.220 Nicotine dependence, chewing tobacco, uncomplicated; I48.91 Unspecified atrial fibrillation; I08.0 Rheumatic disorders of both mitral and aortic valves; I25.10 Atherosclerotic heart disease of native coronary artery without angina pectoris; I95.9 Hypotension, unspecified; R00.1 Bradycardia, unspecified; R53.81 Other malaise; F41.9 Anxiety disorder, unspecified; E78.5 Hyperlipidemia, unspecified; E78.00 Pure hypercholesterolemia, unspecified; Z79.01 Long term (current) use of anticoagulants; Z95.1 Presence of aortocoronary bypass graft; I25.2 Old myocardial infarction
CPT/HCPCS: 31500; 36415; 51702; 71045; 80048; 80053; 82533; 82553; 82805; 83605; 83880; 84443; 84484; 85007; 85025; 85027; 93005; 94002; 94003; 94640; 94760; 96365; 96375; 96376; C9113; J0461; J1265; J1650; J1940; J2060; J2270; J2704; J2920; J3010; J3480; J3490; J7620